=== PATIENT | male | born 1980 | race Hispanic/Latino ===

== ENCOUNTER 2018-02-01 09:56 | Emergency (ER) | payer SELFPAY ==
[2018-02-01] MEDS ORDERED: HYDROCODONE/APAP 10/325 TAB ONE (10:51)
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
--- NOTE | 2018-02-01 12:42 | RAD REPORT ---
EXAM DESCRIPTION: RAD - Clavicle Right - 02/01/2018 11:18 am CLINICAL HISTORY: Right shoulder pain injury FINDINGS: No fracture or dislocation is seen.
[2018-02-01] MEDS ORDERED: MORPHINE 4 MG/ML SYR ONE (12:53)
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
[2018-02-01 13:26] VITALS: BP 130/88; TEMP 98; O2SAT 95
--- NOTE | 2018-02-01 13:28 | RAD REPORT ---
EXAM DESCRIPTION: RAD - Hand Left 3 View - 02/01/2018 1:10 pm CLINICAL HISTORY: PAIN COMPARISON: Hand Left 3 View dated 02/09/2016; Hand Left 3 View dated 08/03/2015 FINDINGS: Deformity of fifth metacarpal with seen compatible with old trauma. Soft tissue swelling i s noted along the ulnar aspect of the hand. No acute fracture or dislocation seen.
== END 2018-02-01 13:22 | disposition home or self-care (01) ==
LOC: ER 09:56
PROC: 0JQ00ZZ Repair Scalp Subcutaneous Tissue and Fascia, Open Approach (ICD-10-PCS; principal; 2018-02-01)
DX: S02.2XXA Fracture of nasal bones, initial encounter for closed fracture (principal); S01.01XA Laceration without foreign body of scalp, initial encounter; S60.222A Contusion of left hand, initial encounter; Y04.2XXA Assault by strike against or bumped into by another person, initial encounter; Y93.9 Activity, unspecified; Y92.9 Unspecified place or not applicable; Z88.5 Allergy status to narcotic agent; Z88.6 Allergy status to analgesic agent
CPT/HCPCS: 70450; 70486; 72125; 76377

== ENCOUNTER 2018-03-13 09:46 | Emergency (ER) | payer SELFPAY ==
[2011-11-15 12:07] VITALS: BP 146/86
[2018-03-13] MEDS ORDERED: HYDROCODONE/APAP 5/325 MG TAB ONE (10:54)
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
--- NOTE | 2018-03-13 12:35 | ER ---
Nurse's Notes [facility] Name: Ameya Muniz Age: 37 yrs Sex: Male : 1980 Arrival Date: 03/13/2018 Time: 09:50 Bed 9 Private MD: None, None Diagnosis: Contusion of lower back and pelvis Presentation: 03/13 09:57 Presenting complaint: Patient states: lower back pain, was putting [place] lights up iw on Sat night, ladder slid out from under him, fell to right side, approx 10 feet, this morning pain has increased. Care prior to arrival: None. Mechanism of Injury: Fall from ladder. Trauma event details: Injury occurred in the [facility]. 09:57 Acuity: AVIVA 3 iw 09:57 Method Of Arrival: Ambulatory iw 10:00 Transition of care: patient was not received from another setting of care. Onset of iw symptoms was March 11, 2018. Risk Assessment: Do you want to hurt yourself or someone else? Patient reports no desire to harm self or others. Initial Sepsis Screen: Does the patient meet any 2 criteria? No. Patient's initial sepsis screen is negative. Does the patient have a suspected source of infection? No. Patient's initial sepsis screen is negative. Historical: - Allergies: 09:59 Naproxen; iw 09:59 tramadol; iw - Home Meds: 09:59 None [Active]; iw - PMHx: 09:59 back problems; iw - PSHx: 09:59 None; iw - Immunization history: Last tetanus immunization:. - Social history:: The patient lives at home, Smoking status: unknown. - Ebola Screening: : Patient negative for fever greater than or equal to 101.5 degrees Fahrenheit, and additional compatible Ebola Virus Disease symptoms Patient denies exposure to infectious person Patient denies travel to an Ebola-affected area in the 21 days before illness onset No symptoms or risks identified at this time. Screenin:00 Abuse screen: Denies threats or abuse. Denies injuries from another. Tuberculosis iw screening: No symptoms or risk factors identified. 11:00 Nutritional screening: No deficits noted. Fall Risk Fall in past 12 months (25 points). iw Primary Survey: 09:59 A: Airway: patent. Breathing/Chest: Respiratory pattern: regular. Circulation: Heart iw tones present. Skin color: pink. Disability Alert. Assessment: 10:58 General: Appears in no apparent distress. Behavior is calm, cooperative. General: iw Behavior is cooperative, anxious. Pain: Complains of pain in lumbar area. Neuro: Level of Consciousness is awake, alert, obeys commands, Oriented to person, place, time. 12:26 Reassessment: pt states "i just wanna get out of here and get in my own bed, can you iw tell him to give me my paper work" Dr. Louie notified. 12:37 Reassessment: pt advised that Dr. Louie is working on paper work, pt states "I'm just iw gonna go home, y'all can't do anything for me" pt does not want to stay for paper work. Vital Signs: 09:59 BP 137 / 88; Pulse 83; Resp 16; Pulse Ox 99% on R/A; Weight 86.18 kg; Height 5 ft. 11 iw in. (180.34 cm); Pain 9/10; 09:59 Body Mass Index 26.50 (86.18 kg, 180.34 cm) iw Mccamey Coma Score: 09:59 Eye Response: spontaneous(4). Verbal Response: oriented(5). Motor Response: obeys iw commands(6). Total: 15. Trauma Score (Adult): 09:59 Eye Response: spontaneous(1); Verbal Response: oriented(1); Motor Response: obeys iw commands(2); Systolic BP: > 89 mm Hg(4); Respiratory Rate: 10 to 29 per min(4); Mccamey Score: 15; Trauma Score: 12 ED Course: 09:50 Patient arrived in ED. dl4 09:51 None, None is Private Physician. dl4 09:58 Triage completed. iw 10:00 Arm band placed on. iw 10:00 Patient maintains SpO2 saturation greater than 95% on room air. iw 10:09 Abril Clement, RN is Primary Nurse. iw 10:22 Milind Louie MD is Attending Physician. gs 10:42 CT completed. Patient tolerated procedure well. Patient moved to CT via wheelchair. jg6 Patient moved back from CT. 11:00 Patient has correct armband on for positive identification. iw 12:34 No provider procedures requiring assistance completed. Patient did not have IV access iw during this emergency room visit. Administered Medications: 10:58 Drug: [place] 5 mg-325 mg 1 tabs Route: PO; iw Outcome: 12:34 Discharge ordered by MD. soto 12:34 Discharged to home iw 12:34 Condition: good 12:34 Instructed on pt refused to wait for discharge paperwork 12:35 Patient left the ED. iw Signatures: Abril Clement RN RN iw Milind Louie MD MD gs Garcia, Jessica j6 Chuy Romero dl4
--- NOTE | 2018-03-13 12:35 | EDPHYS ---
Physician Documentation [facility] Name: Ameya Muniz Age: 37 yrs Sex: Male : 1980 Arrival Date: 03/13/2018 Time: 09:50 Bed 9 Private MD: None, None ED Physician Milind Louie HPI: 03/13 11:26 This 37 yrs old Male presents to ER via Ambulatory with complaints of Fall gs Injury, Back Pain. 11:26 Details of fall: The patient fell from a height, from a ladder, but was slowed somewhat gs by hitting ladder rungs. Onset: The symptoms/episode began/occurred 2 day(s) ago. Associated injuries: The patient sustained injury to the low back, contusion, pain with movement, tenderness. Severity of symptoms: At their worst the symptoms were moderate, in the emergency department the symptoms are unchanged. The patient has not experienced similar symptoms in the past. The patient has not recently seen a physician. Historical: - Allergies: 09:59 Naproxen; iw 09:59 tramadol; iw - Home Meds: :59 None [Active]; iw - PMHx: 09:59 back problems; iw - PSHx: 09:59 None; iw - Immunization history: Last tetanus immunization:. - Social history:: The patient lives at home, Smoking status: unknown. - Ebola Screening: : Patient negative for fever greater than or equal to 101.5 degrees Fahrenheit, and additional compatible Ebola Virus Disease symptoms Patient denies exposure to infectious person Patient denies travel to an Ebola-affected area in the 21 days before illness onset No symptoms or risks identified at this time. ROS: 11:26 All other systems are negative. gs Exam: 11:26 Head/Face: Normocephalic, atraumatic. Eyes: Pupils equal round and reactive to light, gs extra-ocular motions intact. Lids and lashes normal. Conjunctiva and sclera are non-icteric and not injected. Cornea within normal limits. Periorbital areas with no swelling, redness, or edema. ENT: Nares patent. No nasal discharge, no septal abnormalities noted. Tympanic membranes are normal and external auditory canals are clear. Oropharynx with no redness, swelling, or masses, exudates, or evidence of obstruction, uvula midline. Mucous membranes moist. Neck: Trachea midline, no thyromegaly or masses palpated, and no cervical lymphadenopathy. Supple, full range of motion without nuchal rigidity, or vertebral point tenderness. No Meningismus. Chest/axilla: Normal chest wall appearance and motion. Nontender with no deformity. No lesions are appreciated. Cardiovascular: Regular rate and rhythm with a normal S1 and S2. No gallops, murmurs, or rubs. Normal PMI, no JVD. No pulse deficits. Respiratory: Lungs have equal breath sounds bilaterally, clear to auscultation and percussion. No rales, rhonchi or wheezes noted. No increased work of breathing, no retractions or nasal flaring. Abdomen/GI: Soft, non-tender, with normal bowel sounds. No distension or tympany. No guarding or rebound. No evidence of tenderness throughout. Skin: Warm, dry with normal turgor. Normal color with no rashes, no lesions, and no evidence of cellulitis. Neuro: Awake and alert, GCS 15, oriented to person, place, time, and situation. Cranial nerves II-XII grossly intact. Motor strength 5/5 in all extremities. Sensory grossly intact. Cerebellar exam normal. Normal gait. 11:26 Constitutional: The patient appears alert, awake. 11:26 Back: pain, that is moderate, of the right low back. 11:26 Musculoskeletal/extremity: Extremities: noted in the right hip: ecchymosis, tenderness, There is no evidence of deformity, ROM: no acute changes, Circulation is intact in all extremities. Sensation intact. Vital Signs: 09:59 BP 137 / 88; Pulse 83; Resp 16; Pulse Ox 99% on R/A; Weight 86.18 kg; Height 5 ft. 11 iw in. (180.34 cm); Pain 9/10; 09:59 Body Mass Index 26.50 (86.18 kg, 180.34 cm) iw Merced Coma Score: 09:59 Eye Response: spontaneous(4). Verbal Response: oriented(5). Motor Response: obeys iw commands(6). Total: 15. Trauma Score (Adult): 09:59 Eye Response: spontaneous(1); Verbal Response: oriented(1); Motor Response: obeys iw commands(2); Systolic BP: > 89 mm Hg(4); Respiratory Rate: 10 to 29 per min(4); Madina Score: 15; Trauma Score: 12 MDM: 10:34 Patient medically screened. 11:26 Differential diagnosis: contusion, fracture, sprain. Data reviewed: vital signs, nurses notes. Response to treatment: the patient's symptoms have mildly improved after treatment, and as a result, I will discharge patient. 12:33 Counseling: I had a detailed discussion with the patient and/or guardian regarding: the gs historical points, exam findings, and any diagnostic results supporting the discharge/admit diagnosis, radiology results, the need for outpatient follow up. 03/13 10:35 Order name: CT Stone Protocol 03/13 11:00 Order name: CT; Complete Time: 12:33 EDMS Administered Medications: 10:58 Drug: Nathalie 5 mg-325 mg 1 tabs Route: PO; iw Disposition: 03/13/18 12:34 Discharged to Home. Impression: Contusion of lower back and pelvis. - Condition is Stable. - Discharge Instructions: Contusion. - Prescriptions for Tylenol- Codeine #4 300-60 mg Oral Tablet - take 1 tablet by ORAL route every 6 hours As needed; 10 tablet. - Medication Reconciliation Form, Thank You Letter, Antibiotic Education, Prescription Opioid Use form. - Follow up: Private Physician; When: 2 - 3 days; Reason: Re-evaluation by your physician. Signatures: Dispatcher [employer] EDAbril Ruiz RN RN Milind Louie MD MD Corrections: (The following items were deleted from the chart) 12:35 12:34 03/13/2018 12:34 Discharged to Home. Impression: Contusion of lower back and iw pelvis. Condition is Stable. Forms are Medication Reconciliation Form, Thank You Letter, Antibiotic Education, Prescription Opioid Use. Follow up: Private Physician; When: 2 - 3 days; Reason: Re-evaluation by your physician.
== END 2018-03-13 12:35 | disposition home or self-care (01) ==
LOC: ER 09:46
DX: S30.0XXA Contusion of lower back and pelvis, initial encounter (principal); W11.XXXA Fall on and from ladder, initial encounter; Y93.9 Activity, unspecified; Y92.9 Unspecified place or not applicable
CPT/HCPCS: 74176; 76377; 99284

== ENCOUNTER 2018-05-18 08:29 | Emergency (ER) | payer SELFPAY ==
[2018-05-18 09:17] LABS: Urine Blood NEGATIVE (NEG); Urine Glucose NEGATIVE (NEG); Urine Protein NEGATIVE (NEG); Urine Specific Gravity 1.005 (1.005-1.030)
[2018-05-18 09:37] LABS: Urine Bacteria NONE SEEN /HPF (NONE SEEN); Urine Culture Reflex Order NOT NEEDED; Urine RBC NONE SEEN /HPF (NONE SEEN)
--- NOTE | 2018-05-18 09:58 | ER ---
Nurse's Notes [facility] Name: Ameya Muniz Age: 37 yrs Sex: Male : 1980 Arrival Date: 05/18/2018 Time: 08:33 Bed 18 Private MD: None, None Diagnosis: Presentation: 05/18 08:47 Presenting complaint: Patient states: mid back pain radiating to right groin, painful iw urination X 3 days. Transition of care: patient was not received from another setting of care. Onset of symptoms was May 15, 2018. Risk Assessment: Do you want to hurt yourself or someone else?. Initial Sepsis Screen: Does the patient meet any 2 criteria? HR > 90 bpm. Does the patient have a suspected source of infection? No. Patient's initial sepsis screen is negative. Care prior to arrival: None. 08:47 Method Of Arrival: Ambulatory iw 08:47 Acuity: AVIVA 3 iw Historical: - Allergies: 08:50 Naproxen; iw 08:50 tramadol; iw - Home Meds: 08:50 None [Active]; iw - PMHx: 08:50 back problems; iw - PSHx: 08:50 None; iw - Immunization history:: Adult Immunizations not up to date. - Social history:: Smoking status: Patient uses tobacco products, smokes one-half pack cigarettes per day. - Ebola Screening: : Patient negative for fever greater than or equal to 101.5 degrees Fahrenheit, and additional compatible Ebola Virus Disease symptoms Patient denies exposure to infectious person Patient denies travel to an Ebola-affected area in the 21 days before illness onset No symptoms or risks identified at this time. Screenin:50 Abuse screen: Denies threats or abuse. Denies injuries from another. Nutritional bp screening: No deficits noted. Tuberculosis screening: No symptoms or risk factors identified. Fall Risk None identified. Assessment: 08:50 General: Appears in no apparent distress. comfortable, Behavior is cooperative, bp appropriate for age, anxious. Pain: Complains of pain in groin. Neuro: Level of Consciousness is awake, alert, obeys commands, Oriented to person, place, time, situation, Appropriate for age. Cardiovascular: No deficits noted. Respiratory: Airway is patent Respiratory effort is even, unlabored, Respiratory pattern is regular, symmetrical. GI: No signs and/or symptoms were reported involving the gastrointestinal system. : Reports burning with urination. EENT: No deficits noted. Derm: No deficits noted. Musculoskeletal: Circulation, motion, and sensation intact. Range of motion: intact in all extremities. 09:45 Reassessment: PT ELOPED FROM ROOM WITHOUT SIGNING AMA. NO S/S ACUTE DISTRESS SEEN PRIOR bp TO ELOPEMENT. Vital Signs: 08:49 BP 142 / 100; Pulse 109; Resp 16 S; Temp 98.2(TE); Pulse Ox 100% on R/A; Weight 90.72 iw kg; Height 5 ft. 11 in. (180.34 cm); Pain 8/10; 08:49 Body Mass Index 27.89 (90.72 kg, 180.34 cm) iw ED Course: 08:33 Patient arrived in ED. mr 08:33 None, None is Private Physician. mr 08:43 Dinh Pacheco, RN is Primary Nurse. bp 08:44 Hammad Lats PA is PHCP. cp 08:44 John Walker MD is Attending Physician. cp 08:48 Triage completed. iw 08:49 Arm band placed on. iw 08:50 Patient has correct armband on for positive identification. Bed in low position. Call bp light in reach. Side rails up X2. 09:47 No provider procedures requiring assistance completed. Patient did not have IV access bp during this emergency room visit. 18:57 Primary Nurse role handed off by Dinh Pacheco, HAO cp 18:58 Abril Clement, RN is Primary Nurse. iw Administered Medications: No medications were administered Outcome: 09:48 Eloped from patient exam room, before seeing physician Time discovered patient gone: bp May 18, 2018 at 09:30 09:48 Condition: stable 09:57 Patient left the ED. bp 18:58 Patient left the ED. iw Signatures: Kasey Carrillo mr Abril Clement, RN RN iw Hammad Last PA PA cp Dinh Pacheco, RN RN bp
[2018-05-18 10:02] LABS: Barbiturates NEGATIVE (NEGATIVE); Benzodiazepines NEGATIVE (NEGATIVE); Cocaine NEGATIVE (NEGATIVE); METHAMPHETAM POSITIVE (NEGATIVE); Methadone NEGATIVE (NEGATIVE); Opiates NEGATIVE (NEGATIVE); Phencyclidine NEGATIVE (NEGATIVE); THC Cannibis NEGATIVE (NEGATIVE)
[2018-05-18 10:03] VITALS: BP 142/100; TEMP 98.2; O2SAT 100
--- NOTE | 2018-05-18 18:59 | EDPHYS ---
Physician Documentation [facility] Name: Ameya Muniz Age: 37 yrs Sex: Male : 1980 Arrival Date: 05/18/2018 Time: 08:33 Bed 18 Private MD: None, None ED Physician John Walker HPI: 05/18 09:15 This 37 yrs old Male presents to ER via Ambulatory with complaints of Urinary cp Problem. 09:15 The patient presents with scrotal pain, of the right side, urinary symptoms, dysuria, cp bilateral groin pain. Onset: The symptoms/episode began/occurred 3 day(s) ago. Associated signs and symptoms: Pertinent positives: abdominal pain, Pertinent negatives: constipation, diarrhea, fever, hematuria, vomiting. Severity of symptoms: in the emergency department the symptoms are unchanged, despite home interventions. Historical: - Allergies: 08:50 Naproxen; iw 08:50 tramadol; iw - Home Meds: 08:50 None [Active]; iw - PMHx: 08:50 back problems; iw - PSHx: 08:50 None; iw - Immunization history:: Adult Immunizations not up to date. - Social history:: Smoking status: Patient uses tobacco products, smokes one-half pack cigarettes per day. - Ebola Screening: : Patient negative for fever greater than or equal to 101.5 degrees Fahrenheit, and additional compatible Ebola Virus Disease symptoms Patient denies exposure to infectious person Patient denies travel to an Ebola-affected area in the 21 days before illness onset No symptoms or risks identified at this time. ROS: 09:20 Constitutional: Negative for body aches, chills, fever, poor PO intake. cp 09:20 Eyes: Negative for injury, pain, redness, and discharge. cp 09:20 ENT: Negative for drainage from ear(s), ear pain, sore throat, difficulty swallowing, difficulty handling secretions. 09:20 Cardiovascular: Negative for chest pain, edema, palpitations. 09:20 Respiratory: Negative for cough, shortness of breath, wheezing. 09:20 Abdomen/GI: Positive for abdominal pain, of the right lower quadrant and left lower quadrant and pelvis and groin, Negative for vomiting, diarrhea, constipation, black/tarry stool, rectal pain, rectal bleeding. 09:20 Back: Positive for radiated pain, of the low back area. 09:20 : Positive for burning with urination, testicular pain Negative for penile discharge, penile pain. 09:20 Skin: Negative for cellulitis, rash. 09:20 Neuro: Negative for altered mental status, headache, weakness. 09:20 All other systems are negative. Exam: 09:25 Constitutional: The patient appears in no acute distress, alert, awake, non-toxic, well cp developed, well nourished. 09:25 Head/Face: Normocephalic, atraumatic. cp 09:25 Eyes: Periorbital structures: appear normal. 09:25 ENT: External ear(s): are unremarkable, Nose: is normal, Mouth: Lips: moist, Oral mucosa: pink and intact, moist, Posterior pharynx: Airway: no evidence of obstruction, patent. 09:25 Chest/axilla: Inspection: normal, Palpation: is normal, no crepitus, no tenderness. 09:25 Cardiovascular: Rate: tachycardic, Rhythm: regular, Edema: is not appreciated. 09:25 Respiratory: the patient does not display signs of respiratory distress, Respirations: normal, no use of accessory muscles, no retractions, no splinting, no tachypnea, labored breathing, is not present, Breath sounds: are clear throughout, no decreased breath sounds, no stridor, no wheezing. 09:25 Abdomen/GI: Inspection: abdomen appears normal, Bowel sounds: active, all quadrants, Palpation: soft, in all quadrants, mild abdominal tenderness, in the right lower quadrant and left lower quadrant, rebound tenderness, is not appreciated, involuntary guarding, is not appreciated. 09:25 Back: pain, that is mild, of the low back area, ROM is normal. Vital Signs: 08:49 BP 142 / 100; Pulse 109; Resp 16 S; Temp 98.2(TE); Pulse Ox 100% on R/A; Weight 90.72 iw kg; Height 5 ft. 11 in. (180.34 cm); Pain 8/10; 08:49 Body Mass Index 27.89 (90.72 kg, 180.34 cm) iw MDM: 08:44 Patient medically screened. cp 05/18 08:49 Order name: Urine Microscopic Only bp 05/18 08:49 Order name: Urine Drug Screen bp 05/18 08:49 Order name: Urine Dipstick-Ancillary (obtain specimen); Complete Time: 09:08 bp 05/18 09:12 Order name: Urine Dipstick--Ancillary (enter results) eb Administered Medications: No medications were administered Disposition: 10:30 Chart complete. cp 05/19 12:56 Co-signature as Attending Physician, John Walker MD I agree with the assessment and wa plan of care. Disposition: 05/18/18 09:57 Patient left the facility after being seen by provider. - Patient left due to other. Signatures: Dispatcher [employer] EDAbril Ruiz RN RN iw Hammad Last PA PA cp John Walker MD MD wa Peltier, Brian RN RN bp Corrections: (The following items were deleted from the chart) 05/18 18:58 09:57 05/18/2018 09:57 Patient left the facility before being seen by provider. Reason iw stated they are leaving due to other. bp 18:58 18:58 05/18/2018 09:57 Patient left the facility after being seen by provider. Reason cp stated they are leaving due to other. iw 18:58 18:58 05/18/2018 09:57 Patient left the facility after being seen by provider. Reason iw stated they are leaving due to other. cp 05/19 17:15 05/18 09:00 Chart complete. cp cp
== END 2018-05-18 18:58 | disposition left against medical advice (07) ==
LOC: ER 08:29
DX: R30.0 Dysuria (principal); M54.5 Low back pain; F17.210 Nicotine dependence, cigarettes, uncomplicated; Z88.5 Allergy status to narcotic agent; Z88.6 Allergy status to analgesic agent
CPT/HCPCS: 80307; 81003; 81015; 99281

== ENCOUNTER 2018-12-28 02:41 | Emergency (ER) | payer BC, SELFPAY ==
--- OUTSIDE RECORDS SUMMARY | 2018-12-28 02:43 | XMS REPORT ---
:1980 [facility] [address] [place] [address] Dr. Kirby [address] [place] [id number] Care Team Providers Name Role Phone Unavailable Unavailable Unavailable Problems This patient has no known problems. Allergies, Adverse Reactions, Alerts This patient has no known allergies or adverse reactions. Medications This patient has no known medications.
--- NOTE | 2018-12-28 03:09 | ER ---
Nurse's Notes [facility] Name: Ameya Muniz Age: 38 yrs Sex: Male : 1980 Arrival Date: 12/28/2018 Time: 02:44 Bed 19 [facility] MD: Diagnosis: Encounter for screening, unspecified Presentation: 12/28 02:51 Presenting complaint: Patient states: Reports lower back pain that radiates down his ea left leg, pt reports he hurt his back yesterday helping his mom. Transition of care: patient was not received from another setting of care. Onset of symptoms was December 28, 2018. Risk Assessment: Do you want to hurt yourself or someone else? Patient reports no desire to harm self or others. Initial Sepsis Screen: Does the patient meet any 2 criteria? No. Patient's initial sepsis screen is negative. Does the patient have a suspected source of infection? No. Patient's initial sepsis screen is negative. Care prior to arrival: 02:51 Method Of Arrival: Ambulatory ea 02:51 Acuity: AVIVA 3 ea Triage Assessment: 02:56 General: Appears in no apparent distress. Behavior is calm, cooperative, appropriate ea for age. Pain: Complains of pain in back and left leg. Neuro: Level of Consciousness is awake, alert, obeys commands, Oriented to person, place, time, situation. Cardiovascular: Patient's skin is warm and dry. Respiratory: Airway is patent Respiratory effort is even, unlabored, Respiratory pattern is regular, symmetrical. Derm: Skin is pink, warm \T\ dry. Musculoskeletal: Circulation, motion, and sensation intact. Historical: - Allergies: 02:56 Naproxen; ea 02:56 tramadol; ea - Home Meds: 02:56 None [Active]; ea - PMHx: 02:56 back problems; ea - PSHx: 02:56 None; ea - Immunization history:: Adult Immunizations up to date. - Social history:: Smoking status: Patient uses tobacco products, smokes one pack cigarettes per day. - Ebola Screening: : No symptoms or risks identified at this time. Screenin:52 Abuse screen: Denies threats or abuse. Nutritional screening: No deficits noted. ea Tuberculosis screening: No symptoms or risk factors identified. Fall Risk None identified. Vital Signs: 02:57 BP 150 / 103; Pulse 107; Resp 18; Temp 98.2; Pulse Ox 95% ; Weight 86.18 kg; Height 5 ea ft. 11 in. (180.34 cm); Pain 9/10; 02:57 Body Mass Index 26.50 (86.18 kg, 180.34 cm) ea ED Course: 02:44 Patient arrived in ED. ds1 02:52 Triage completed. ea 02:54 Milind Louie MD is Attending Physician. gs 02:58 Patient has correct armband on for positive identification. Bed in low position. Call ea light in reach. Side rails up X2. 02:58 Arm band placed on right wrist. Patient placed in an exam room, on a stretcher, on ea pulse oximetry. 03:09 No provider procedures requiring assistance completed. Patient did not have IV access ea during this emergency room visit. Administered Medications: No medications were administered Outcome: 03:08 Discharge ordered by . 03:08 Medical screen evaluation completed per provider. Patient declined treatment. ea 03:09 Patient left the ED. ea Signatures: Tomasa Loera ds1 Damaris Hickey, RN RN Milind Jackson MD MD
--- NOTE | 2018-12-28 03:09 | EDPHYS ---
Physician Documentation [facility] Name: Ameya Muniz Age: 38 yrs Sex: Male : 1980 Arrival Date: 12/28/2018 Time: 02:44 Bed 19 Private MD: ED Physician Milind Louie HPI: 12/28 03:06 This 38 yrs old Male presents to ER via Ambulatory with complaints of Back gs Pain. 03:06 The patient presents with pain that is acute, that is chronic. The symptoms are located gs in the low back. Onset: The symptoms/episode began/occurred yesterday. Associated signs and symptoms: Pertinent negatives: incontinence, numbness, urinary retention. The problem was sustained when bending over, when lifting. Modifying factors: the patient symptoms are aggravated by bending. Severity of symptoms: At their worst the symptoms were moderate, in the emergency department the symptoms are unchanged. The patient has experienced similar episodes in the past, chronically. Historical: - Allergies: 02:56 Naproxen; ea 02:56 tramadol; ea - Home Meds: 02:56 None [Active]; ea - PMHx: 02:56 back problems; ea - PSHx: 02:56 None; ea - Immunization history:: Adult Immunizations up to date. - Social history:: Smoking status: Patient uses tobacco products, smokes one pack cigarettes per day. - Ebola Screening: : No symptoms or risks identified at this time. ROS: 03:06 All other systems are negative. gs Exam: 03:06 Head/Face: Normocephalic, atraumatic. Eyes: Pupils equal round and reactive to light, gs extra-ocular motions intact. Lids and lashes normal. Conjunctiva and sclera are non-icteric and not injected. Cornea within normal limits. Periorbital areas with no swelling, redness, or edema. ENT: Nares patent. No nasal discharge, no septal abnormalities noted. Tympanic membranes are normal and external auditory canals are clear. Oropharynx with no redness, swelling, or masses, exudates, or evidence of obstruction, uvula midline. Mucous membranes moist. Neck: Trachea midline, no thyromegaly or masses palpated, and no cervical lymphadenopathy. Supple, full range of motion without nuchal rigidity, or vertebral point tenderness. No Meningismus. Chest/axilla: Normal chest wall appearance and motion. Nontender with no deformity. No lesions are appreciated. Cardiovascular: Regular rate and rhythm with a normal S1 and S2. No gallops, murmurs, or rubs. Normal PMI, no JVD. No pulse deficits. Respiratory: Lungs have equal breath sounds bilaterally, clear to auscultation and percussion. No rales, rhonchi or wheezes noted. No increased work of breathing, no retractions or nasal flaring. Abdomen/GI: Soft, non-tender, with normal bowel sounds. No distension or tympany. No guarding or rebound. No evidence of tenderness throughout. Back: No spinal tenderness. No costovertebral tenderness. Full range of motion. Skin: Warm, dry with normal turgor. Normal color with no rashes, no lesions, and no evidence of cellulitis. MS/ Extremity: Pulses equal, no cyanosis. Neurovascular intact. Full, normal range of motion. Neuro: Awake and alert, GCS 15, oriented to person, place, time, and situation. Cranial nerves II-XII grossly intact. Motor strength 5/5 in all extremities. Sensory grossly intact. Cerebellar exam normal. Normal gait. 03:06 Constitutional: The patient appears alert, awake. Vital Signs: 02:57 BP 150 / 103; Pulse 107; Resp 18; Temp 98.2; Pulse Ox 95% ; Weight 86.18 kg; Height 5 ea ft. 11 in. (180.34 cm); Pain 9/10; 02:57 Body Mass Index 26.50 (86.18 kg, 180.34 cm) ea MDM: 03:05 Patient medically screened. 03:06 Differential diagnosis: Joint Injury Ligament Injury ruptured disc, sprain. Data gs reviewed: vital signs, nurses notes. Counseling: I had a detailed discussion with the patient and/or guardian regarding: the historical points, exam findings, and any diagnostic results supporting the discharge/admit diagnosis, the need for outpatient follow up. Response to treatment: There is no appreciated change of the patient's symptoms at this time, and as a result, I will discharge patient. Administered Medications: No medications were administered Disposition: 12/28/18 03:08 Discharged to Home. Impression: Encounter for screening, unspecified. - Condition is Stable. - Medication Reconciliation Form, Thank You Letter, Antibiotic Education, Prescription Opioid Use form. - Follow up: Private Physician; When: 2 - 3 days; Reason: Re-evaluation by your physician. Signatures: Damaris Hickey RN RN ea Starr, Gregory, MD MD gs Corrections: (The following items were deleted from the chart) 03:09 03:08 12/28/2018 03:08 Discharged to Home. Impression: Encounter for screening, ea unspecified. Condition is Stable. Forms are Medication Reconciliation Form, Thank You Letter, Antibiotic Education, Prescription Opioid Use. Follow up: Private Physician; When: 2 - 3 days; Reason: Re-evaluation by your physician. gs
[2018-12-28 06:28] VITALS: BP 150/103; TEMP 98.2; O2SAT 95
== END 2018-12-28 03:09 | disposition home or self-care (01) ==
LOC: ER 02:41
DX: M54.5 Low back pain (principal); F17.210 Nicotine dependence, cigarettes, uncomplicated; Z13.9 Encounter for screening, unspecified
CPT/HCPCS: 99282

== ENCOUNTER 2022-02-04 10:16 | Emergency (ER) | payer SELFPAY ==
--- OUTSIDE RECORDS SUMMARY | 2022-02-04 10:21 | XMS REPORT | Continuity of Care Document ---
:1980 Author Organization [facility] t Address [address] [place] [address] [address] [place] [address] Care Team Providers Name Role Phone Sushma Tovar Primary Care Physician [phone] Problems This patient has no known problems. Allergies, Adverse Reactions, Alerts This patient has no known allergies or adverse reactions. Medications Ordered Filled Start Stop Current Ordering Indication Dosage Frequency Signature Comments Components Source Medication Medication Date Date Medication? Clinician (SIG) Name Name Dose 2021- No Unknown 725 00:00: 00 TAKE 1 2021-0 No CAPSULE AT 7-25 BEDTIME. 00:00: 00 TAKE 1 2021-0 No 200 TABLET 7-25 TWICE 00:00: DAILY. 00 Dose 2021-0 No Unknown 7-25 00:00: 00 TAKE 1 2021-0 No CAPSULE AT 7-25 BEDTIME. 00:00: 00 TAKE 1 2021-0 No 100 CAPSULE AT 7-25 NIGHT FOR 3 00:00: DAYS 00 FOLLOWED BY 2 CAPSULES FOR 3 DAYS , THEN 300 MG AT NIGHT X 30 DAYS Dose 2021-0 No Unknown 7-25 00:00: 00 TAKE 1 2021-0 No CAPSULE AT 7-25 BEDTIME. 00:00: 00 Vital Signs Vital Name Observation Time Observation Value Comments Source BP Systolic 2022-01-04 13:23:00 112 mm[Hg] BP Diastolic 2022-01-04 13:23:00 73 mm[Hg] Weight Measured 2022-01-04 13:23:00 203.20 pounds Height Measured 2022-01-04 13:23:00 71.00 inches Body Temperature 2022-01-04 13:23:00 98.20 degrees Heart Rate 2022-01-04 13:23:00 73.00 /min Respiratory Rate 2022-01-04 13:23:00 18.00 /min BP Systolic 2021-12-18 13:27:00 135 mm[Hg] BP Diastolic 2021-12-18 13:27:00 80 mm[Hg] Weight Measured 2021-12-18 13:27:00 199.00 pounds Height Measured 2021-12-18 13:27:00 71.00 inches Body Temperature 2021-12-18 13:27:00 98.20 degrees Heart Rate 2021-12-18 13:27:00 79.00 /min Respiratory Rate 2021-12-18 13:27:00 18.00 /min Heart Rate 2021-11-02 08:21:00 75.00 /min Respiratory Rate 2021-11-02 08:21:00 18.00 /min BP Systolic 2021-11-02 08:21:00 138 mm[Hg] BP Diastolic 2021-11-02 08:21:00 78 mm[Hg] Weight Measured 2021-11-02 08:21:00 198.00 pounds Height Measured 2021-11-02 08:21:00 71.00 inches Body Temperature 2021-11-02 08:21:00 98.20 degrees Procedures This patient has no known procedures. Plan of Care Planned Activity Planned Date Details Comments Source Goal Plan of Care Note [code = 96550-0] Goal Plan of Care Note [code = 34511-2] Goal Plan of Care Note [code = 74054-7] Goal Plan of Care Note [code = 54800-8] Goal Plan of Care Note [code = 31586-5] Goal Plan of Care Note [code = 21692-4] Goal Plan of Care Note [code = 96525-6] Goal Plan of Care Note [code = 71545-2] Goal Plan of Care Note [code = 37314-1] Goal Plan of Care Note [code = 26271-9] Goal Plan of Care Note [code = 35312-4] Goal Plan of Care Note [code = 05801-3] Goal Plan of Care Note [code = 50364-1] Goal Plan of Care Note [code = 63283-0] Goal Plan of Care Note [code = 01773-1] Goal Plan of Care Note [code = 35084-9] Goal Plan of Care Note [code = 29945-3] Goal Plan of Care Note [code = 43210-2] Goal Plan of Care Note [code = 06240-7] Goal Plan of Care Note [code = 04506-2] Goal Plan of Care Note [code = 62821-4] Goal Plan of Care Note [code = 57352-8] Goal Plan of Care Note [code = 83719-9] Goal Plan of Care Note [code = 90100-3] Goal Plan of Care Note [code = 36118-3] Goal Plan of Care Note [code = 34620-0] Goal Plan of Care Note [code = 67767-3] Goal Plan of Care Note [code = 44723-4] Encounters Start End Encounter Admission Attending Care Care Encounter Source Date/Time Date/Time Type Type Clinicians Facility Department ID 2022-01-04 2022-01-04 Outpatient [id number] 00:00:00 00:00:00 Visit [id number] [id number] [id number] 2021-12-18 2021-12-18 Outpatient [id number] 00:00:00 00:00:00 Visit 3a08-541i [id number] -[id number] 2021-11-26 Outpatient [id number] 00:00:00 00:00:00 Visit 210c-42b0 [id number]-42b0-8 -839d-07f [id number]-[id number] 2021-11-02 2021-11-02 Outpatient [id number] 00:00:00 00:00:00 Visit [id number] [id number]-a -acd0-6ba [id number] Results This patient has no known results.
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
--- NOTE | 2022-02-04 12:34 | EDPHYS ---
Physician Documentation [facility] Name: Ameya Muniz Age: 41 yrs Sex: Male : 1980 Arrival Date: 02/04/2022 Time: 10:19 Bed 1 Private MD: ED Physician Hammad Ivey HPI: 02/04 12:33 This 41 yrs old Male presents to ER via Ambulatory with complaints of jmm Medication Refill. 12:33 The patient presents to the emergency department requesting refill(s) for: Neurontin. jmm The patient has experienced similar episodes in the past. Historical: - Allergies: 10:24 Naproxen; ph 10:24 tramadol; ph - PMHx: 10:24 back problems; ph - Immunization history:: Adult Immunizations unknown. - Social history:: Smoking status: Patient reports the use of cigarette tobacco products, denies chronic smoking, but will smoke occasionally. ROS: 12:33 Constitutional: Negative for fever, chills, and weight loss, Cardiovascular: Negative jmm for chest pain, palpitations, and edema, Respiratory: Negative for shortness of breath, cough, wheezing, and pleuritic chest pain. 12:33 MS/extremity: Positive for pain. 12:33 All other systems are negative. Exam: 12:33 Constitutional: This is a well developed, well nourished patient who is awake, alert, jmm and in no acute distress. Head/Face: atraumatic. Eyes: EOMI, no conjunctival erythema appreciated ENT: Moist Mucus Membranes Neck: Trachea midline, Supple Chest/axilla: Normal chest wall appearance and motion. Cardiovascular: Regular rate and rhythm. No edema appreciated Respiratory: Normal respirations, no respiratory distress appreciated Abdomen/GI: Non distended Back: Normal ROM Skin: General appearance color normal MS/ Extremity: Moves all extremities, no obvious deformities appreciated, no edema noted to the lower extremities Neuro: Awake and alert Psych: Behavior is normal, Mood is normal, Patient is cooperative and pleasant Vital Signs: 10:33 BP 148 / 89; Pulse 75; Resp 18; Temp 98.0; Pulse Ox 99% on R/A; Weight 90.72 kg; Height ph 5 ft. 10 in. (177.80 cm); 10:33 Body Mass Index 28.70 (90.72 kg, 177.80 cm) ph MDM: 10: Patient medically screened. [facility] 12:34 Data reviewed: vital signs, nurses notes. Counseling: I had a detailed discussion with [facility] the patient and/or guardian regarding: the historical points, exam findings, and any diagnostic results supporting the discharge/admit diagnosis, the need for outpatient follow up, to return to the emergency department if symptoms worsen or persist or if there are any questions or concerns that arise at home. Administered Medications: No medications were administered Disposition Summary: 02/04/22 12:34 Discharge Ordered Location: Home [facility] Condition: Stable [facility] Diagnosis - Person with feared health complaint in whom no diagnosis is made [facility] Followup: [facility] - With: Private Physician - When: 2 - 3 days - Reason: Recheck today's complaints, Continuance of care, Re-evaluation by your physician Discharge Instructions: - Discharge Summary Sheet [facility] Forms: - Medication Reconciliation Form [facility] - Thank You Letter [facility] - Antibiotic Education [facility] - Prescription Opioid Use [facility] Prescriptions: - gabapentin 300 mg Oral capsule - take 1 capsule by ORAL route 3 times per day As needed; 30 capsule; Refills: 0, [facility] Product Selection Permitted Signatures: Jose Randolph PA PA jmm Hall, Patricia, RN RN ph
[2022-02-04 12:54] VITALS: BP 148/89; TEMP 98; O2SAT 99
== END 2022-02-04 12:50 | disposition home or self-care (01) ==
LOC: ER 10:16
DX: Z71.1 Person with feared health complaint in whom no diagnosis is made (principal)
CPT/HCPCS: 99282

== ENCOUNTER 2022-06-15 11:26 | Emergency (ER) | payer OTHER ==
--- OUTSIDE RECORDS SUMMARY | 2022-06-15 11:30 | XMS REPORT | Continuity of Care Document ---
:1980 Author Organization [facility] t Address [address] [place] [address] [place] [id number] Care Team Providers Name Role Phone Sushma Tovar Primary Care Physician [phone] Problems This patient has no known problems. Allergies, Adverse Reactions, Alerts This patient has no known allergies or adverse reactions. Medications Ordered Filled Start Stop Current Ordering Indication Dosage Frequency Signature Comments Components Source Medication Medication Date Date Medication? Clinician (SIG) Name Name Dose 2021-0 No Unknown 725 00:00: 00 TAKE 1 [...] Goal Plan of Care Note [code = 20377-8] Goal Plan of Care Note [code = 40935-0] Goal Plan of Care Note [code = 67058-9] Goal Plan of Care Note [code = 98441-9] Goal Plan of Care Note [code = 65384-3] Goal Plan of Care Note [code = 19578-6] Goal Plan of Care Note [code = 97657-2] Goal Plan of Care Note [code = 81014-5] Goal Plan of Care Note [code = 90466-9] Goal Plan of Care Note [code = 30527-2] Goal Plan of Care Note [code = 50285-6] Goal Plan of Care Note [code = 72936-7] Goal Plan of Care Note [code = 79898-7] Goal Plan of Care Note [code = 97060-8] Goal Plan of Care Note [code = 11074-0] Goal Plan of Care Note [code = 12546-8] Goal Plan of Care Note [code = 91777-4] Goal Plan of Care Note [code = 00531-3] Goal Plan of Care Note [code = 87428-9] Goal Plan of Care Note [code = 88776-6] Goal Plan of Care Note [code = 83933-3] Goal Plan of Care Note [code = 97989-8] Goal Plan of Care Note [code = 50125-1] Goal Plan of Care Note [code = 33000-3] Goal Plan of Care Note [code = 86607-0] Goal Plan of Care Note [code = 97674-3] Goal Plan of Care Note [code = 98531-2] Goal Plan of Care Note [code = 53880-2] Encounters Start End Encounter Admission Attending Care Care Encounter Source Date/Time Date/Time Type Type Clinicians Facility Department ID 2022-02-15 2022-02-15 Outpatient [facility] SFA [id number] [place] 15:01:23 15:01:23 1107 F Jae 2022-01-04 2022-01-04 Outpatient [id number] 00:00:00 00:00:00 Visit [id number]-9395 [id number] -[id number] [id number] 2021-12-18 2021-12-18 Outpatient [id number] 00:00:00 00:00:00 Visit [id number] -[id number] [id number] 2021-11-26 Outpatient [id number] 00:00:00 00:00:00 Visit 210c-42b0 10c-42b0-8 -839d-07f [id number] 2021-11-02 2021-11-02 Outpatient [id number] 00:00:00 00:00:00 Visit 9kb6-6115 ab0-4723-a -acd0-6ba [id number] Results This patient has no known results.
[2022-06-15] MEDS ORDERED: ONDANSETRON 4 MG (ODT) TAB ONE (11:49)
[2022-06-15 13:52] VITALS: TEMP 97.8
[2022-06-15 13:53] VITALS: BP 142/69; O2SAT 99
--- NOTE | 2022-07-02 14:11 | EDPHYS ---
Physician Documentation [facility] Name: Ameya Muniz Age: 41 yrs Sex: Male : 1980 Arrival Date: 06/15/2022 Time: 11:30 Bed IW2 Private MD: ED Physician Thiago Berkowitz HPI: 06/15 12:03 This 41 yrs old Male presents to ER via Ambulatory with complaints of Fever, ms3 Vomiting. 12:03 41-year-old male with past medical history of back problems presents for vomiting that ms3 began yesterday after having a tooth extracted. Patient states he is currently on antibiotics for dental infection. Patient denies pain at this time. Patient denies alleviating or inciting factors. Patient states he feels dehydrated.. Historical: - Allergies: 11:42 Naproxen; ld1 11:42 tramadol; ld1 - PMHx: 11:42 back problems; ld1 - Immunization history:: Adult Immunizations up to date, Client reports receiving the 2nd dose of the Covid vaccine. - Social history:: Smoking status: Patient denies any tobacco usage or history of. Patient/guardian denies using alcohol. ROS: 12:03 Constitutional: Negative for fever, and chills. Neck: Negative for injury, pain, and ms3 swelling, Cardiovascular: Negative for chest pain, and palpitations. Respiratory: Negative for shortness of breath, cough, wheezing, and pleuritic chest pain. 12:03 Skin: Negative for injury, rash, and discoloration. 12:03 Abdomen/GI: Positive for vomiting. 12:03 All other systems are negative. Exam: 12:03 Constitutional: This is a well developed, well nourished patient who is awake, alert, ms3 and in no acute distress. Head/Face: Normocephalic, atraumatic. Neck: Trachea midline, no cervical lymphadenopathy. Supple, full range of motion without nuchal rigidity, or vertebral point tenderness. No Meningismus. Chest/axilla: Normal chest wall appearance and motion. Nontender with no deformity. Cardiovascular: Regular rate and rhythm with a normal S1 and S2. No gallops, murmurs, or rubs. Normal PMI, no JVD. No pulse deficits. Respiratory: Lungs have equal breath sounds bilaterally, clear to auscultation and percussion. No rales, rhonchi or wheezes noted. No increased work of breathing, no retractions or nasal flaring. Abdomen/GI: Soft, non-tender, with normal bowel sounds. No distension or tympany. No guarding or rebound. No evidence of tenderness throughout. Skin: Warm, dry with normal turgor. Normal color with no rashes, no lesions, and no evidence of cellulitis. MS/ Extremity: Pulses equal, no cyanosis. Neurovascular intact. Full, normal range of motion. Vital Signs: 11:40 BP 146 / 89; Pulse 81; Resp 18; Temp 97.8(TE); Pulse Ox 96% on R/A; Weight 90.72 kg; ld1 Height 5 ft. 11 in. ; Pain 8/10; 13:33 BP 142 / 69; Pulse 81; Resp 18; Pulse Ox 99% on R/A; ld1 11:40 Body Mass Index 27.89 (90.72 kg, 180.34 cm) ld1 11:40 Pain Scale: Adult ld1 MDM: 11:47 Patient medically screened. ms3 12:03 Differential diagnosis: adverse reaction vs vomiting vs dehydration. ms3 13:24 Data reviewed: vital signs, nurses notes, and as a result, I will discharge patient. I ms3 considered the following discharge prescriptions or medication management in the emergency department Medications were administered in the Emergency Department. See MAR. Test considered but Not performed: Labs: Patient tolerating po with benign abdominal exam.. CT: Patient tolerating po with benign abdominal exam.. Counseling: I had a detailed discussion with the patient and/or guardian regarding: the historical points, exam findings, and any diagnostic results supporting the discharge/admit diagnosis, the need for outpatient follow up. ED course: Discussed physical exam findings with patient. Patient to follow-up with Dr. Alaniz in 2 to 3 days. Patient understands and agrees with plan. All questions were answered. Return precautions discussed include worsening symptoms, or any other concerns. On reevaluation patient is tolerating p.o., abdomen benign, patient is alert and oriented x4, no apparent distress, nontoxic, ambulatory in the emergency department. 06/15 11:43 Order name: PO challenge; Complete Time: 13:02 ld1 Administered Medications: 11:46 Drug: Ondansetron PO 4 mg Route: PO; kr3 13:02 Follow up: Response: No adverse reaction ld1 Disposition Summary: 06/15/22 13:21 Discharge Ordered Location: Home ms3 Condition: Stable ms3 Diagnosis - Nausea with vomiting, unspecified ms3 Followup: ms3 - With: Dalton Alaniz DO - When: 2 - 3 days - Reason: Recheck today's complaints Discharge Instructions: - Discharge Summary Sheet ms3 - Nausea and Vomiting, Adult ms3 Forms: - Medication Reconciliation Form ms3 - Thank You Letter ms3 - Antibiotic Education ms3 - Prescription Opioid Use ms3 Prescriptions: - ondansetron 4 mg Oral Tablet,disintegrating - take 1 tablet by ORAL route every 8 hours; 15 tablet; Refills: 0, Product ms3 Selection Permitted Signatures: Thiago Berkowitz DO DO ms3 Alma Delia Paz, RN RN ld1 Namrata Glover RN RN kr3
--- NOTE | 2022-07-02 14:11 | ER ---
Nurse's Notes [facility] Name: Ameya Muniz Age: 41 yrs Sex: Male : 1980 Arrival Date: 06/15/2022 Time: 11:30 Bed IW2 Private MD: Diagnosis: Nausea with vomiting, unspecified Presentation: 06/15 11:40 Chief complaint: Patient states: Tooth pulled yesterday. [place] lower back pain - unable ld1 to keep fluids down. C/O [place] lower back pain. Coronavirus screen: At this time, the client does not indicate any symptoms associated with coronavirus-19. Ebola Screen: No symptoms or risks identified at this time. Initial Sepsis Screen: Does the patient meet any 2 criteria? No. Patient's initial sepsis screen is negative. Does the patient have a suspected source of infection? No. Patient's initial sepsis screen is negative. Risk Assessment: Do you want to hurt yourself or someone else? Patient reports no desire to harm self or others. Onset of symptoms was June 15, 2022 at 11:42. 11:40 Method Of Arrival: Ambulatory ld1 11:40 Acuity: AVIVA 3 ld1 Triage Assessment: 11:42 General: Appears in no apparent distress. comfortable, Behavior is calm, cooperative, ld1 appropriate for age. Pain: Complains of pain in low back area Pain does not radiate. Pain currently is 8 out of 10 on a pain scale. Quality of pain is described as throbbing. EENT: No signs and/or symptoms were reported regarding the EENT system. Neuro: Level of Consciousness is awake, alert, obeys commands, Oriented to person, place, time, situation. Cardiovascular: Capillary refill < 3 seconds Patient's skin is warm and dry. Respiratory: Airway is patent Respiratory effort is even, unlabored. GI: Abdomen is flat, non-distended, Reports intolerance of fluids, nausea, vomiting. : No signs and/or symptoms were reported regarding the genitourinary system. Derm: No signs and/or symptoms reported regarding the dermatologic system. Musculoskeletal: No signs and/or symptoms reported regarding the musculoskeletal system. Historical: - Allergies: 11:42 Naproxen; ld1 11:42 tramadol; ld1 - PMHx: 11:42 back problems; ld1 - Immunization history:: Adult Immunizations up to date, Client reports receiving the 2nd dose of the Covid vaccine. - Social history:: Smoking status: Patient denies any tobacco usage or history of. Patient/guardian denies using alcohol. Screenin:33 [facility] ED Fall Risk Assessment (Adult) History of falling in the last 3 months, ld1 including since admission No falls in past 3 months (0 pts). Abuse screen: Denies threats or abuse. Denies injuries from another. Nutritional screening: No deficits noted. Tuberculosis screening: No symptoms or risk factors identified. Assessment: 13:33 Reassessment: See triage assessment. ld1 Vital Signs: 11:40 BP 146 / 89; Pulse 81; Resp 18; Temp 97.8(TE); Pulse Ox 96% on R/A; Weight 90.72 kg; ld1 Height 5 ft. 11 in. ; Pain 8/10; 13:33 BP 142 / 69; Pulse 81; Resp 18; Pulse Ox 99% on R/A; ld1 11:40 Body Mass Index 27.89 (90.72 kg, 180.34 cm) ld1 11:40 Pain Scale: Adult ld1 ED Course: 11:30 Patient arrived in ED. mr 11:32 Thiago Berkowitz DO is Attending Physician. ms3 11:42 Triage completed. ld1 11:42 Arm band placed on right wrist. ld1 13:21 Dalton Alaniz DO is Referral Physician. ms3 13:33 Patient has correct armband on for positive identification. Placed in gown. Bed in low ld1 position. Call light in reach. Side rails up X2. Pulse ox on. NIBP on. Door closed. Noise minimized. Warm blanket given. 13:33 No provider procedures requiring assistance completed. Patient did not have IV access ld1 during this emergency room visit. Administered Medications: 11:46 Drug: Ondansetron PO 4 mg Route: PO; kr3 13:02 Follow up: Response: No adverse reaction ld1 Medication: 13:33 VIS not applicable for this client. ld1 Outcome: 13:21 Discharge ordered by . ms3 13:33 Discharged to home ambulatory. ld1 13:33 Condition: stable 13:33 Discharge instructions given to patient, Instructed on discharge instructions, follow up and referral plans. medication usage, Demonstrated understanding of instructions, follow-up care, medications, Prescriptions given X 1. 13:34 Patient left the ED. ld1 Signatures: Kasey Carrillo mr Thiago Berkowitz DO DO ms3 Alma Delia Paz RN RN ld1 Namrata Glover RN RN kr3
== END 2022-06-15 13:34 | disposition home or self-care (01) ==
LOC: ER 11:26
DX: R11.2 Nausea with vomiting, unspecified (principal); R50.9 Fever, unspecified; Z88.5 Allergy status to narcotic agent
CPT/HCPCS: 99283; Q0162

== ENCOUNTER → 2023-04-18 | Emergency (ER) | payer OTHER ==
--- OUTSIDE RECORDS SUMMARY | 2023-04-18 10:32 | XMS REPORT | Continuity of Care Document ---
Author Name Unknown Address [address] [facility] [address] th[address] Address [address] [facility] 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 ON STAND 9 [id number] 2022 00:00:00 Problems Condition Name Condition Details Condition Category Status Onset Date Resolution Date Last Treatment Date Treating Clinician Comments Source Well adult exam Well adult exam Disease Active 08-12 00:00: 00 Randee Quinnold - Externa l Elevated BP without diagnosis of hypertensi on Elevated BP without diagnosis of hypertensi on Disease Active 08-12 00:00: 00 Randee Seybold - Externa l Mild major depression Mild major depression Disease Active - 00:00: 00 Randee Seybold - Externa l Depression Depression Disease Active - 00:00: 00 Randee Seybold - Externa l Chronic back pain Chronic back pain Disease Active - 00:00: 00 Randee Seybold - Externa l Neuropathy Neuropathy Disease Active - 00:00: 00 Randee Seybold - Externa l Vitiligo Vitiligo Disease Active - 00:00: 00 Randee Seybold - Externa l Social History Social Habit Start Date Stop Date Quantity Comments Source Gender identity Cherry mac Villatoro - External Sexual orientation Amaris sands Shauna - External History of tobacco use Cigarette Smoker Randee martinez - External Alcohol intake 2022-08-12 00:00:00 2022-08-12 00:00:00 Lifetime non-drinker (finding) Randee Villatoro - External History of Social function 2022-07-13 00:00:00 2022-07-13 00:00:00 Randee Villatoro - External Education 2022-07-13 00:00:00 2022-07-13 00:00:00 16 Randee Villatoro - External Cigarettes smoked current (pack per day) - Reported 2022-07-13 00:00:00 2022-07-13 00:00:00 Randee Villatoro - External Cigarette pack-years 2022-07-13 00:00:00 2022-07-13 00:00:00 Randee Villatoro - External Tobacco use and exposure 2022-07-13 00:00:00 2022-07-13 00:00:00 Smokeless tobacco non-user Randee Villatoro - External Sex Assigned At 1980 00:00:00 1980 00:00:00 Randee Villatoro - External Smoking Status Start Date Stop Date Source Occasional tobacco smoker 2022-07-13 00:00:00 Randee Villatoro - External Medications Ordered Medication Name Filled Medication Name Start Date Stop Date Current Medication? Ordering Clinician Indication Dosage Frequency Signature (SIG) Comments Components Source Sertraline HCl 100 MG oral Tablet 08-12 00:00: 00 Yes [id number] 100mg Take 1 tablet (100 mg total) by mouth daily Randee Cardozo Externa l Gabapentin 600 MG oral Tablet 08-12 00:00: 00 Yes [id number] 600mg Take 1 tablet (600 mg total) by mouth 3 times daily Randee Villatoro - Externa l Gabapentin 600 MG oral Tablet 07-13 00:00: 00 Yes [id number] 600mg Take 1 tablet (600 mg total) by mouth 2 times daily Randee Cardozo Externa l Sertraline HCl 50 MG oral Tablet 07-13 00:00: 00 Yes [id number] 50mg Take 1 tablet (50 mg total) by mouth daily Randee malhotra Gabapentin 600 MG oral Tablet 4- 00:00: 00 08-12 00:00 :00 No [id number] 600mg Take 1 tablet (600 mg total) by mouth 2 times daily Randee malhotra Sertraline HCl 50 MG oral Tablet 4- 00:00: 08-12 00:00 :00 No [id number] 50mg Take 1 tablet (50 mg total) by mouth daily Randee malhotra Acetaminoph en-Codeine #3 300-30 MG oral Tablet 3-06 00:00: 00 07-13 00:00 :00 No 1{tbl} Take 1 tablet by mouth every 4 to 6 hours as needed for pain Randee malhotra Sertraline HCl 50 MG oral Tablet 3- 00:00: 00 07-13 00:00 :00 No TAKE 1 TABLET BY MOUTH 1 TIME EACH DAY. Randee malhotra Gabapentin 600 MG oral Tablet 1-31 00:00: 00 07-13 00:00 :00 No 600mg Take 600 mg by mouth daily Randee malhotra HYDROcodone -Acetaminop hen (NORCO) 5-325 MG oral Tablet 1-05 00:00: 00 07-13 00:00 :00 No 1{tbl} Q.25D Take 1 tablet by mouth every 6 hours as needed FOR PAIN Randee malhotra Dose Unknown 11-02 00:00: 00 No TAKE 1 CAPSULE AT BEDTIME. 11-02 00:00: 00 No TAKE 1 TABLET TWICE DAILY. 11-02 00:00: 00 No 200 Dose Unknown 11-02 00:00: 00 No TAKE 1 CAPSULE AT BEDTIME. 11-02 00:00: 00 No TAKE 1 CAPSULE AT NIGHT FOR 3 DAYS FOLLOWED BY 2 CAPSULES FOR 3 DAYS , THEN 300 MG AT NIGHT X 30 DAYS 11-02 00:00: 00 No 100 Dose Unknown 11-02 00:00: 00 No TAKE 1 CAPSULE AT BEDTIME. 11-02 00:00: 00 No Vital Signs Vital Name Observation Time Observation Value Comments S ource Systolic blood pressure 2022-08-12 13:17:00 130 mm[Hg] Randee Seybo ld - External Diastolic blood pressure 2022-08-12 13:17:00 85 mm[Hg] Randee Seybo ld - External Heart rate 2022-08-12 13:02:00 99 /min Kelse y Seybold - External Body temperature 2022-08-12 13:02:00 36.61 Shreya Randee Seybold - External Respiratory rate 2022-08-12 13:02:00 14 /min Randee Seybold - External Body height 2022-08-12 13:02:00 177.8 cm Cherry ey Seybold - External Body weight 2022-08-12 13:02:00 88.905 kg Cherry ey Seybold - External BMI 2022-08-12 13:02:00 28.12 kg/m2 Cherry ey Seybold - External Oxygen saturation in Arterial blood by Pulse oximetry 2022-08-12 13:02:00 98 /min Randee Seybo ld - External Systolic blood pressure 2022-07-13 14:49:00 168 mm[Hg] Randee Seybo ld - External Diastolic blood pressure 2022-07-13 14:49:00 84 mm[Hg] Randee Seybo ld - External Heart rate 2022-07-13 14:49:00 102 /min Kelse y Seybold - External Body temperature 2022-07-13 14:49:00 36.89 Shreya Randee Seybold - External Respiratory rate 2022-07-13 14:49:00 14 /min Randee Seybold - External Body height 2022-07-13 14:49:00 177.8 cm Cherry ey Seybold - External Body weight 2022-07-13 14:49:00 87.998 kg Cherry ey Seybold - External BMI 2022-07-13 14:49:00 27.84 kg/m2 Cherry ey Seybold - External Oxygen saturation in Arterial blood by Pulse oximetry 2022-07-13 14:49:00 98 /min Randee López ld - External BP Systolic 2022-01-04 13:23:00 112 mm[Hg] BP [...] inches Body Temperature 2021-11-02 08:21:00 98.20 degrees Plan of Care Planned Activity Planned Date Details Comments Source Goal Plan of Care Note [code = 58638-0] Goal Plan of Care Note [code = 08303-5] Goal Plan of Care Note [code = 89437-4] Goal Plan of Care Note [code = 76446-9] Goal Plan of Care Note [code = 12350-5] Goal Plan of Care Note [code = 22928-2] Goal Plan of Care Note [code = 95029-8] Goal Plan of Care Note [code = 97420-2] Goal Plan of Care Note [code = 33838-5] Goal Plan of Care Note [code = 60804-2] Goal Plan of Care Note [code = 24611-1] Goal Plan of Care Note [code = 27373-1] Goal Plan of Care Note [code = 93288-8] Goal Plan of Care Note [code = 48190-2] Goal Plan of Care Note [code = 70898-2] Goal Plan of Care Note [code = 16716-0] Goal Plan of Care Note [code = 85861-0] Goal Plan of Care Note [code = 84979-7] Goal Plan of Care Note [code = 77479-2] Goal Plan of Care Note [code = 43356-2] Goal Plan of Care Note [code = 05212-3] Goal Plan of Care Note [code = 45559-2] Goal Plan of Care Note [code = 74397-3] Goal Plan of Care Note [code = 50284-4] Goal Plan of Care Note [code = 89821-1] Goal Plan of Care Note [code = 85228-9] Goal Plan of Care Note [code = 73807-9] Goal Plan of Care Note [code = 56251-3] Encounters Start Date/Time End Date/Time Encounter Type Admission Type Attending [facility] Facility Care Department Encounter ID Source 2023-04-05 00:00:00 2023-04-05 00:00:00 Outpatient RACHEL MOSS [id number] Randee [facility] 2023-03-28 00:00:00 2023-03-28 00:00:00 Outpatient RACHEL MOSS [id number] Rand[facility] 2023-02-25 00:00:00 2023-02-25 00:00:00 Outpatient RACHEL MOSS [id number] Randee Villatoro 2022-09-13 00:00:00 2022-09-13 00:00:00 Outpatient RACHEL MOSS [id number] Randee shawn 2022-08-26 00:00:00 2022-08-26 00:00:00 Outpatient RACHEL MOSS [id number] Randeewilbert Villatoro 2022-08-13 00:00:00 2022-08-13 00:00:00 Outpatient PRERACHEL GILL [id number] Randee Villatoro 2022-08-12 09:00:00 2022-08-12 09:00:00 Outpatient HAN LIRIANO [id number] Randee Villatoro 2022-08-12 08:15:00 2022-08-12 08:15:00 Outpatient PRERACHEL GILL [id number] Randee Villatoro 2022-07-22 00:00:00 2022-07-22 00:00:00 Outpatient PREZARACHEL Hauser [id number] Randee Villatoro 2022-07-21 00:00:00 2022-07-21 00:00:00 Outpatient PRERACHEL GILL [id number] Randee Villatoro 2022-07-13 11:00:00 2022-07-13 11:00:00 Outpatient PRERACHEL GILL [id number] [facility] 2022-07-01 10:00:00 2022-07-01 10:00:00 Outpatient GUIDOLISS Gupat [id number] Randee [facility] 2022-02-15 15:01:23 2022-02-15 15:01:23 Outpatient [facility] [id number] Del[address] Rowe 2022-01-04 00:00:00 2022-01-04 00:00:00 Outpatient Visit [id number] 2021-12-18 00:00:00 2021-12-18 00:00:00 Outpatient Visit [id number] [id number] 00:00:00 2021-11-26 00:00:00 Outpatient Visit [id number] 2021-11-02 00:00:00 2021-11-02 00:00:00 Outpatient Visit [id number]
--- NOTE | 2023-04-18 12:18 | RAD REPORT ---
EXAM DESCRIPTION: RAD - Chest Pa And Lat (2 Views) - 04/18/2023 12:11 pm CLINICAL HISTORY: CONGESTION Chest pain. COMPARISON: Chest Pa And Lat (2 Views) dated 06/21/2016; Chest Single View dated 08/27/2015; CHEST PA AND LAT 2 VIEW dated 11/16/2014; CHEST PA AND LAT 2 VIEW dated 05/06/2014 FINDINGS: The lungs are clear. The heart is normal in size. No displaced fractures. IMPRESSION: No acute or concerning finding suspected.
[2023-04-18 13:11] LABS: Hematocrit 41.5 % (39.6-49.0); Lymphocytes % 14.6 % (15.3-44.8); MCV 86.4 fL (80-100); MPV 7.7 fL (7.6-11.3); Platelets 299 thou/uL (152-406)
[2023-04-18 13:29] LABS: Magnesium 1.9 mg/dL (1.6-2.4); Potassium 3.9 mEq/L (3.5-5.1); Troponin High Sensitivity 4.2 pg/mL (<58.9)
--- NOTE | 2023-04-18 14:08 | EDPHYS ---
Physician Documentation [facility] Name: Ameya Muniz Age: 42 yrs Sex: Male : 1980 Arrival Date: 04/18/2023 Time: 10:29 Bed DIS2 Private MD: Matt Rapp ED Physician Thiago Berkowitz HPI: 04/18 12:43 This 42 yrs old Male presents to ER via Ambulatory with complaints of ms3 Breathing Difficulty. 12:43 42-year-old male with past medical history of back problems presents to the emergency ms3 department for shortness of breath and tight chest that he rates a 4/10. 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 Patient states his symptoms have been going on for 3 days. Patient states his symptoms are becoming worse. Historical: - Allergies: 11:27 Naproxen; iw 11:27 tramadol; iw - PMHx: 11:27 back problems; iw - Immunization history:: Adult Immunizations up to date. - Social history:: Smoking status: Patient denies any tobacco usage or history of. ROS: 12:43 Constitutional: Negative for fever, and chills. Neck: Negative for injury, pain, and ms3 swelling, 12:43 MS/Extremity: Negative for injury and deformity, Skin: Negative for injury, rash, and discoloration, 12:43 Cardiovascular: Positive for chest pain, 12:43 Respiratory: Positive for shortness of breath, 12:43 All other systems are negative, Exam: 12:43 Constitutional: This is a well developed, well nourished patient who is awake, alert, ms3 and in no acute distress. Head/Face: Normocephalic, atraumatic. Chest/axilla: Normal chest wall appearance and motion. Nontender with no deformity. Cardiovascular: Regular rate and rhythm with a normal S1 and S2. No gallops, murmurs, or rubs. Normal PMI, no JVD. No pulse deficits. Respiratory: Lungs have equal breath sounds bilaterally, clear to auscultation and percussion. No rales, rhonchi or wheezes noted. No increased work of breathing, no retractions or nasal flaring. Abdomen/GI: Soft, non-tender, with normal bowel sounds. No distension or tympany. No guarding or rebound. No evidence of tenderness throughout. Skin: Warm, dry with normal turgor. Normal color with no rashes, no lesions, and no evidence of cellulitis. MS/ Extremity: Pulses equal, no cyanosis. Neurovascular intact. Full, normal range of motion. 14:00 ECG was reviewed by the Attending Physician. ms3 Vital Signs: 11:26 BP 154 / 94; Pulse 77; Resp 16; Temp 98.1; Pulse Ox 99% ; Weight 90.72 kg; Height 5 ft. iw 10 in. ; 11:26 Body Mass Index 28.70 (90.72 kg, 177.8 cm) iw MDM: 12:38 Patient medically screened. ms3 12:43 Differential diagnosis: Anemia CHF exacerbation, Chronic Obstructive Pulmonary Disease ms3 Myocardial Infarction pneumonia, pulmonary edema, reactive airway disease. 14:07 Data reviewed: vital signs, nurses notes, lab test result(s), EKG, radiologic studies, ms3 and as a result, I will discharge patient. Independent interpretation of the following test(s) in the Emergency Department EKG: See my EKG interpretation above. Counseling: I had a detailed discussion with the patient and/or guardian regarding the historical points, exam findings, and any diagnostic results supporting the discharge/admit diagnosis, lab results, radiology results, the need for outpatient follow up, to return to the emergency department if symptoms worsen or persist or if there are any questions or concerns that arise at home. Special discussion: Based on the patient's history, exam, and Dx evaluation, there is no indication for emergent intervention or inpatient Tx. It is understood by the patient/guardian that if the Sx's persist or worsen they need to return immediately for re-evaluation. ED course: Discussed labs, imaging with patient. Patient to follow-up with primary care physician in 2 to 3 days. Patient understands and agrees with plan. All questions were answered. Return precautions discussed include worsening symptoms, chest pain, shortness of breath, or any other concerns. On reevaluation patient is alert and oriented x 4, no apparent distress, nontoxic-appearing, ambulatory number department, speaking full sentences. 04/18 12:42 Order name: Basic Metabolic Panel; Complete Time: 13:54 ms3 04/18 12:42 Order name: CBC with Diff; Complete Time: 13:54 ms3 04/18 12:42 Order name: Magnesium; Complete Time: 13:54 ms3 04/18 12:42 Order name: NT PRO-BNP; Complete Time: 13:54 ms3 04/18 12:42 Order name: Troponin HS; Complete Time: 13:54 ms3 04/18 11:26 Order name: Chest Pa And Lat (2 Views) XRAY; Complete Time: 12:38 iw 04/18 12:42 Order name: EKG; Complete Time: 12:43 ms3 04/18 12:42 Order name: Cardiac monitoring; Complete Time: 14:00 ms3 04/18 12:42 Order name: EKG - Nurse/Tech; Complete Time: 14:00 ms3 04/18 12:42 Order name: IV Saline Lock; Complete Time: 13:03 ms3 04/18 12:42 Order name: Labs collected and sent; Complete Time: 13:03 ms3 04/18 12:42 Order name: O2 Per Protocol; Complete Time: 14:00 ms3 04/18 12:42 Order name: O2 Sat Monitoring; Complete Time: 14:00 ms3 Administered Medications: No medications were administered Disposition Summary: 04/18/23 14:07 Discharge Ordered Notes: Location: Home ms3 Condition: Stable ms3 Diagnosis - Shortness of breath ms3 - Elevated blood-pressure reading, without diagnosis of hypertension ms3 Followup: ms3 - With: Matt Rapp DO - When: 2 - 3 days - Reason: Recheck today's complaints Discharge Instructions: - Discharge Summary Sheet ms3 - Shortness of Breath, Adult ms3 Forms: - Medication Reconciliation Form ms3 - Thank You Letter ms3 - Antibiotic Education ms3 - Prescription Opioid Use ms3 - Patient Portal Instructions ms3 - Leadership Thank You Letter ms3 Signatures: Dispatcher [employer] Abril Lance, RN Thiago Robledo DO DO ms3
--- NOTE | 2023-04-18 14:08 | ER ---
Nurse's Notes [facility] Name: Ameya Muniz Age: 42 yrs Sex: Male : 1980 Arrival Date: 04/18/2023 Time: 10:29 Bed DIS2 Private MD: Matt Rapp Diagnosis: Shortness of breath;Elevated blood-pressure reading, without diagnosis of hypertension Presentation: 04/18 11:26 Chief complaint: Patient states: COUGH AND SOB x2 DAYS, [employer] WORK [employer]MENT. iw Coronavirus screen: At this time, the client does not indicate any symptoms associated with coronavirus-19. Ebola Screen: No symptoms or risks identified at this time. Initial Sepsis Screen: Does the patient meet any 2 criteria? No. Patient's initial sepsis screen is negative. Does the patient have a suspected source of infection? No. Patient's initial sepsis screen is negative. Risk Assessment: Do you want to hurt yourself or someone else? Patient reports no desire to harm self or others. Onset of symptoms is unknown. 11:26 Method Of Arrival: Ambulatory iw 11:26 Acuity: AVIVA 3 iw Triage Assessment: 11:27 General: Appears in no apparent distress. ill, Behavior is calm, cooperative, iw appropriate for age. Pain: Denies pain. Respiratory: Reports shortness of breath cough that is Onset: The symptoms/episode began/occurred at an unknown time. the patient has mild shortness of breath. Historical: - Allergies: 11:27 Naproxen; iw 11:27 tramadol; iw - PMHx: 11:27 back problems; iw - Immunization history:: Adult Immunizations up to date. - Social history:: Smoking status: Patient denies any tobacco usage or history of. Vital Signs: 11:26 BP 154 / 94; Pulse 77; Resp 16; Temp 98.1; Pulse Ox 99% ; Weight 90.72 kg; Height 5 ft. iw 10 in. ; 11:26 Body Mass Index 28.70 (90.72 kg, 177.8 cm) iw ED Course: 10:31 Patient arrived in ED. rg4 10:31 Matt Rapp DO is Private Physician. rg4 11:27 Triage completed. iw 11:27 Arm band placed on. iw 12:13 Chest Pa And Lat (2 Views) XRAY In Process Unspecified. EDMS 12:38 Berkowitz, Thiago, DO is Attending Physician. ms3 13:03 Basic Metabolic Panel Sent. em1 13:03 CBC with Diff Sent. em1 13:03 Magnesium Sent. em1 13:03 NT PRO-BNP Sent. em1 13:03 Troponin HS Sent. em1 13:03 Initial lab(s) drawn, by me, sent to lab. Inserted saline lock: 18 gauge in right em1 forearm, using aseptic technique. Blood collected. 14:06 Matt Rapp DO is Referral Physician. ms3 Administered Medications: No medications were administered Outcome: 14:07 Discharge ordered by MD. ms3 14:23 Patient left the ED. iw Signatures: Dispatcher [employer] EDMS Abril Clement RN Dominic Sandy em1 Breanna Treadwell rg4 Thiago Berkowitz DO DO ms3
[2023-04-18 15:26] VITALS: BP 154/94; TEMP 98.1; O2SAT 99
--- NOTE | 2023-04-20 17:39 | EKG ---
Test Date: 2023-04-18 Test Time: 13:48:06 [employer] Attendant: LEIF MEASUREMENT RESULTS: Intervals: Rate: 69 MD: 166 QRSD: 88 QT: 400 QTc: 428 [place]: P: 65 MD: 166 QRS: 86 T: 93 INTERPRETIVE STATEMENTS: Normal sinus rhythm Nonspecific ST abnormality Abnormal ECG Compared to ECG 08/27/2015 08:50:56 ST (T wave) deviation now present Electronically Signed On 04-20-23 17:34:44 CORRECTION WORKER by Jay Jo
== END ==
LOC: ER 10:29
DX: R06.02 Shortness of breath (principal); R03.0 Elevated blood-pressure reading, without diagnosis of hypertension; R07.89 Other chest pain; Z88.5 Allergy status to narcotic agent
CPT/HCPCS: 36415; 71046; 80048; 83735; 83880; 84484; 85025; 93005; 99283

== ENCOUNTER 2023-12-14 23:42 | Emergency (ER) | payer OTHER ==
--- OUTSIDE RECORDS SUMMARY | 2023-12-14 23:46 | XMS REPORT | Continuity of Care Document ---
Author Name Unknown Address [address] [facility] [address] [place] [address] [facility] thconnect Address [address] [facility] 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 Phone [place] CARDIAC CATH LAB RADIOLOGY TECHNOLOGIST, [facility] Primary Care Physician RENETTA MONTEJO Attending Clinician UnavailSree Chaves Provider Attending Clinician Unavailable SAM DOTY Attending Clinician UnaSUKHDEEP Riley Attending Clinician Unavailable SUKHDEEP HOOKS Attending Clinician Unavailable LANIE JOHNSON Attending Clinician UnavailRACHEL Dubose Attending Clinician Unavailable LAB90 Attending Clinician Unavailable LISS LORA Attending Clinician Unavailable SUKHDEEP HOOKS Admitting Clinician Unavailable Payers Payer Name Policy Type Policy Number Effective Date Expirati on Date Source [facility] [employer] FOC[employer] 9 [id number] 2023 00:00:00 [employer] 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 ON 9 [id number] 2023 00:00:00 Problems Condition Name Condition Details Condition Category Status Onset Date Resolution Date Last Treatment Date Treating Clinician Comments Source Chest pain Chest pain Disease Active 11-13 00:00: 00 Randee Cardozo Externrick l Panic attack Panic attack Disease Active 11-13 00:00: 00 Randee Seybold - Externa l Mild major depression Mild major depression Disease Active 07-20 00:00: 00 Randee Seybold - Externa l Well adult exam Well adult exam Disease Active 08-12 00:00: 00 Randee Seybold - Externa l Elevated BP without diagnosis of hypertensi on Elevated BP without diagnosis of hypertensi on Disease Active 08-12 00:00: 00 Randee Seybold - Externa l Mild major depression Mild major depression Disease Active 08-12 00:00: 00 Randee Seybold - Externa l Depression Depression Disease Active 07-13 00:00: 00 Randee Seybold - Externa l Chronic back pain Chronic back pain Disease Active 07-13 00:00: 00 Randee Seybold - Externa l Neuropathy Neuropathy Disease Active 07-13 00:00: 00 Randee Seybold - Externa l Vitiligo Vitiligo Disease Active 07-13 00:00: 00 Randee Seybold - Externa l Allergies, Adverse Reactions, Alerts Allergy Name Allergy Type Status Severity Reaction(s) Onset Date Inactive Date Treating Clinician Comments Source NO KNOWN ALLERGIE S Drug Class Active [facility] Social History Social Habit Start Date Stop Date Quantity Comments Source Sexual orientation [facility] Gender identity Cherry Villatoro - External History of tobacco use Cigarette Smoker Randee martinez - External Alcoholic beverage intake 2023-10-30 00:00:00 2023-10-30 00:00:00 .57 /d [facility] History of Social function 2023-10-30 00:00:00 2023-10-30 00:00:00 [facility] Cigarettes smoked current (pack per day) - Reported 2023-07-21 00:00:00 2023-07-21 00:00:00 Randee Villatoro - External Cigarette pack-years 2023-07-21 00:00:00 2023-07-21 00:00:00 Randee Villatoro - External Tobacco use and exposure 2023-07-21 00:00:00 2023-07-21 00:00:00 Smokeless tobacco non-user Randee Pandya Alcohol intake 2022-08-12 00:00:00 2022-08-12 00:00:00 Lifetime non-drinker (finding) Randee Pandya Education 2022-07-13 00:00:00 2022-07-13 00:00:00 16 Randee Pandya Sex assigned at 1980 00:00:00 1980 00:00:00 [facility] Smoking Status Start Date Stop Date Source Occasional tobacco smoker 2023-07-21 00:00:00 Randee Pandya Light tobacco smoker 2015-08-12 00:00:00 [facility] Medications Ordered Medication Name Filled Medication Name Start Date Stop Date Current Medication? Ordering Clinician Indication Dosage Frequency Signature (SIG) Comments Components Source Furosemide (LASIX) 20 MG oral Tablet 11-13 11:16: 21 Yes 20mg Take 1 tablet (20 mg total) by mouth every morning. Randee malhotra Gabapentin 600 MG oral Tablet 11-09 00:00: 00 Yes [id number] 600mg Q.25D Take 1 tablet (600 mg total) by mouth 4 times daily. Randee malhotra Lorazepam 1 MG oral Tablet 11-06 00:00: 00 Yes 1mg QD Take 1 tablet (1 mg total) by mouth daily as needed for anxiety. Randee malhotra iopamidol (ISOVUE 370-500 mL) injection 100 mL 10-30 04:15: 00 10-30 04:15 :00 No [id number] 100mL 100 mL, Intravenou s, ONCE, 1 dose, On 10/30/23 at 2315, Routine [facility] ketorolac (TORADOL) injection 15 mg 10-30 02:30: 00 10-30 01:49 :00 No 15mg 15 mg, Slow IV Push, ONCE, 1 dose, On 10/30/23 at 2130, Routine [facility] furosemide (LASIX) injection 40 mg 10-30 01:45: 00 10-30 01:37 :00 No 40mg 40 mg, IV Push, ONCE, 1 dose, On 10/30/23 at 2045, [facility]STEO [facility] furosemide 20 mg tablet 10-29 00:00: 00 Yes [id number] 20mg Take 1 tablet by mouth every morning. [facility] Albuterol HFA 108 (90 Base) MCG/ACT IN AERS 10-25 00:00: 00 Yes INHALE 1 PUFF BY MOUTH EVERY 4 HOURS NEEDED DYSPNEA Randee malhotra predniSONE (DELTASONE) 20 MG oral tablet 10-25 00:00: 00 Yes TAKE 2 TABLETS BY MOUTH EVERY DAY FOR 5 DAYS Randee malhotra Gabapentin 600 MG oral Tablet 09-28 00:00: 00 Yes [id number] 600mg Take 1 tablet (600 mg total) by mouth 4 times daily. Randee malhotra Ibuprofen (MOTRIN) 600 MG oral Tablet 09-22 00:00: 00 Yes TAKE 1 TABLET BY MOUTH EVERY 8 HOURS NEEDED FOR PAIN. TAKE WITH FOOD AND DRINK PLENTY OF WATER. Randee malhotra Gabapentin 600 MG oral Tablet -16 00:00: 00 09-28 00:00 :00 No [id number] 600mg Take 1 tablet (600 mg total) by mouth 3 times daily No driving or drinking alcohol with medication . Randee malhotra Sertraline HCl 100 MG oral Tablet 07-20 00:00: 00 Yes [id number] 100mg QD Take 1 tablet (100 mg total) by mouth daily. Randee malhotra Gabapentin 600 MG oral Tablet 07-20 00:00: 00 Yes [id number] 600mg Take 1 tablet (600 mg total) by mouth 3 times daily No driving or drinking alcohol with medication . Randee malhotra Gabapentin 600 MG oral Tablet 3-13 00:00: 00 07-20 00:00 :00 No [id number] 600mg Take 1 tablet (600 mg total) by mouth 3 times daily. Randee malhotra Sertraline HCl 100 MG oral Tablet -04 00:00: 00 Yes [id number] 100mg Take 1 tablet (100 mg total) by mouth daily Randee malhotra Gabapentin 600 MG oral Tablet - 00:00: 00 Yes [id number] 600mg Take 1 tablet (600 mg total) by mouth 3 times daily Randee malhotra Gabapentin 600 MG oral Tablet 07-13 00:00: 00 Yes [id number] 600mg Take 1 tablet (600 mg total) by mouth 2 times daily Randee malhotra Sertraline HCl 50 MG oral Tablet 07-13 00:00: 00 Yes [id number] 50mg Take 1 tablet (50 mg total) by mouth daily Randee malhotra Acetaminoph en-Codeine #3 300-30 MG oral Tablet -06 00:00: 00 07-13 00:00 :00 No 1{tbl} [...] 600 mg by mouth daily Randee malhotra TAKE 1 CAPSULE AT BEDTIME. 1-09 00:00: 00 Yes 300 Delonte Rowe TAKE 1 TABLET BY MOUTH EVERY 6 HOURS NEEDED FOR PAIN 1-05 00:00: 00 Yes Delonte Rowe HYDROcodone -Acetaminop hen (NORCO) 5-325 MG oral Tablet 1-05 00:00: 00 07-13 00:00 :00 No 1{tbl} Q.25D Take 1 tablet by mouth every 6 hours as needed FOR PAIN Randee malhotra Dose Unknown 7- 00:00: 00 No TAKE 1 CAPSULE AT BEDTIME. 7-25 00:00: 00 No TAKE 1 TABLET TWICE DAILY. 11-02 00:00: 00 No 200 Dose Unknown 11-02 00:00: 00 Yes Delonte Rowe Dose Unknown 11-02 00:00: 00 No TAKE 1 CAPSULE AT BEDTIME. 11-02 00:00: 00 No TAKE 1 CAPSULE AT NIGHT FOR 3 DAYS FOLLOWED BY 2 CAPSULES FOR 3 DAYS , THEN 300 MG AT NIGHT X 30 DAYS 11-02 00:00: 00 No 100 TAKE 1 CAPSULE AT BEDTIME. 11-02 00:00: 00 Yes Delonte Rowe acetaminoph en-codeine (TYLENOL-CO DEINE #3) 300-30 mg tablet 08-27 00:00: 00 Yes [id number] 9108 1{tbl} Take 1 tablet by mouth every 4 (four) hours as needed for Pain (scale 1-3). [facility] cyclobenzap rine 5 mg tablet 11-21 00:00: 00 Yes 5mg Take 1 tablet by mouth 3 (three) times daily. [facility] ibuprofen 600 mg tablet 11-21 00:00: 00 Yes 600mg Take 1 tablet by mouth every 8 (eight) hours as needed for Pain (scale 4-6). [facility] ibuprofen (MOTRIN) 800 mg tablet 08-11 08:21: 38 Yes 800mg Take 800 mg by mouth every 6 (six) hours as needed. [facility] Vital Signs Vital Name Observation Time Observation Value Comments S ource Systolic blood pressure 2023-11-14 16:05:00 138 mm[Hg] Randee barriga - External Diastolic blood pressure 2023-11-14 16:05:00 82 mm[Hg] Randee barriga - External Heart rate 2023-11-14 16:05:00 98 /min Gisela Villatoro - External Body temperature 2023-11-14 16:05:00 36.89 Shreya Randee Villatoro - External Respiratory rate 2023-11-14 16:05:00 20 /min Randee Villatoro - External Body height 2023-11-14 16:05:00 177.8 cm Cherry Villatoro - External Body weight 2023-11-14 16:05:00 103.874 kg Cherry ey Seybold - External BMI 2023-11-14 16:05:00 32.86 kg/m2 Cherry ey Seybold - External Oxygen saturation in Arterial blood by Pulse oximetry 2023-11-14 16:05:00 98 /min Randee Quinno ld - External Systolic blood pressure 2023-10-31 04:00:00 123 mm[Hg] [facility] Diastolic blood pressure 2023-10-31 04:00:00 63 mm[Hg] [facility] Heart rate 2023-10-31 04:00:00 80 /min [facility] Body temperature 2023-10-31 04:00:[address] [facility] Respiratory rate 2023-10-31 04:00:00 10 /min [facility] Oxygen saturation in Arterial blood by Pulse oximetry 2023-10-31 04:00:00 98 /min [facility] Body weight 2023-10-31 01:05:00 114.306 kg [facility] BMI 2023-10-31 01:05:00 35.15 kg/m2 [facility] Body height 2023-10-31 00:46:00 180.3 cm [facility] Systolic blood pressure 2023-07-21 15:41:00 138 mm[Hg] Randee Quinno ld - External Diastolic blood pressure 2023-07-21 15:41:00 84 mm[Hg] Randee Naqviybo ld - External Heart rate 2023-07-21 15:41:00 84 /min Gisela y Seybold - External Body temperature 2023-07-21 15:41:00 36.11 Shreya Randee Seybold - External Respiratory rate 2023-07-21 15:41:00 20 /min Randee Seybold - External Body height 2023-07-21 15:41:00 177.8 cm Cherry ey Seybold - External Body weight 2023-07-21 15:41:00 95.255 kg Cherry ey Seybold - External BMI 2023-07-21 15:41:00 30.13 kg/m2 Cherry ey Seybold - External Oxygen saturation in Arterial blood by Pulse oximetry 2023-07-21 15:41:00 98 /min Randee Naqviybo ld - External Systolic blood pressure 2022-08-12 13:17:00 130 mm[Hg] Randee Seybo ld - External Diastolic blood pressure 2022-08-12 13:17:00 85 mm[Hg] Randee Seybo ld - External Heart rate 2022-08-12 13:02:00 99 /min Pierose y Seybold - External Body temperature 2022-08-12 [...] Pulse oximetry 2022-08-12 13:02:00 98 /min Randee Naqviybo ld - External Systolic blood pressure 2022-07-13 14:49:00 168 mm[Hg] Randee Seybo ld - External Diastolic blood pressure 2022-07-13 14:49:00 84 mm[Hg] Randee Seybo ld - External Heart rate 2022-07-13 14:49:00 102 /min Pierose y Seybold - External Body temperature 2022-07-13 [...] Pulse oximetry 2022-07-13 14:49:00 98 /min Randee Seybo ld - External Heart Rate 2023-09-27 15:44:00 Esmer en F Jae Respiratory Rate 2023-09-27 15:44:00 Delonte F Jae BP Systolic 2023-09-27 15:44:00 Step hen F Jae BP Diastolic 2023-09-27 15:44:00 Anthony phen F Jae Weight Measured 2023-09-27 15:44:00 Delonte F Jae Height Measured 2023-09-27 15:44:00 Delonte F Jae Body Temperature 2023-09-27 15:44:00 Delonte F Jae BP Systolic 2022-01-04 13:23:00 112 mm[Hg] Step hen F Jae BP Diastolic 2022-01-04 13:23:00 73 mm[Hg] Anthony phen F Jae Weight Measured 2022-01-04 13:23:00 203.20 pounds Delonte F Jae Height Measured 2022-01-04 13:23:00 71.00 inches Delonte F Jae Body Temperature 2022-01-04 13:23:00 98.20 degrees Delonte F Jae Heart Rate 2022-01-04 13:23:00 73.00 /min Esmer en F Jae Respiratory Rate 2022-01-04 13:23:00 18.00 /min Delonte F Jae BP Systolic 2021-12-18 13:27:00 135 mm[Hg] Step hen F Jae BP Diastolic 2021-12-18 13:27:00 80 mm[Hg] Anthony phen F Jae Weight Measured 2021-12-18 13:27:00 199.00 pounds Delonte F Jae Height Measured 2021-12-18 13:27:00 71.00 inches Delonte F Jae Body Temperature 2021-12-18 13:27:00 98.20 degrees Delonte F Jae Heart Rate 2021-12-18 13:27:00 79.00 /min Esmer en F Jae Respiratory Rate 2021-12-18 13:27:00 18.00 /min Delonte F Jae BP Systolic 2021-11-02 08:21:00 138 mm[Hg] Step hen F Jae BP Diastolic 2021-11-02 08:21:00 78 mm[Hg] Anthony phen F Jae Weight Measured 2021-11-02 08:21:00 198.00 pounds Delonte F Jae Height Measured 2021-11-02 08:21:00 71.00 inches Delonte Rowe Body Temperature 2021-11-02 08:21:00 98.20 degrees Delonte Rowe Heart Rate 2021-11-02 08:21:00 75.00 /min Esmer Rowe Respiratory Rate 2021-11-02 08:21:00 18.00 /min Delonte Rowe Procedures Procedure Date / Time Performed Performing Clinician Source CT ABDOMEN PELVIS W CONTRAST 2023-10-31 03:17:31 [facility] URINE DRUG (IMMUNOASSAY) - COMPREHENSIVE DRUG SCREEN 2023-10-31 03:08:00 [facility] TROPONIN I 2023-10-31 01:03:[address] [facility] COMP. METABOLIC PANEL (83442) 2023-10-31 01:03:00 [facility] ETHANOL 2023-10-31 01:03:00 Sukhdeep Hooks [facility] CBC WITH DIFF 2023-10-31 01:03:00 Singer Sukhdeep [facility] URINALYSIS 2023-10-31 01:03:[address] [facility] INFLUENZA A/B RSV COVID NAAT 2023-10-31 01:03:00 [facility] N-TERMINAL PRO-BNP 2023-10-31 01:03:00 [facility] Plan of Care Planned Activity Planned Date Details Comments Source Goal Plan of Care Note [code = 59286-3] Goal Plan of Care Note [code = 18968-3] Goal Plan of Care Note [code = 77577-7] Goal Plan of Care Note [code = 22849-5] Goal Plan of Care Note [code = 46662-4] Goal Plan of Care Note [code = 75258-8] Goal Plan of Care Note [code = 38805-1] Goal Plan of Care Note [code = 15256-4] Goal Plan of Care Note [code = 99312-8] Goal Plan of Care Note [code = 19051-1] Goal Plan of Care Note [code = 14744-8] Goal Plan of Care Note [code = 13015-6] Goal Plan of Care Note [code = 33006-9] Goal Plan of Care Note [code = 09930-7] Goal Plan of Care Note [code = 94711-3] Goal Plan of Care Note [code = 18304-1] Goal Plan of Care Note [code = 28685-2] Goal Plan of Care Note [code = 25050-3] Goal Plan of Care Note [code = 52657-5] Goal Plan of Care Note [code = 94403-1] Goal Plan of Care Note [code = 59447-1] Goal Plan of Care Note [code = 68019-4] Goal Plan of Care Note [code = 17793-0] Goal Plan of Care Note [code = 67797-5] Goal Plan of Care Note [code = 20804-2] Goal Plan of Care Note [code = 57000-1] Goal Plan of Care Note [code = 83431-0] Goal Plan of Care Note [code = 96856-0] Encounters Start Date/Time End Date/Time Encounter Type Admission Type Attending [facility] Care Department Encounter ID Source 2023-12-15 10:00:00 2023-12-15 10:00:00 Outpatient RENETTA MONTEJO [id number] [facility] 2023-11-14 11:30:00 2023-11-14 11:30:00 Outpatient RENETTA MONTEJO [id number] [facility] 2023-11-14 00:00:00 2023-11-14 00:00:00 Outpatient RANDEE LIRIANO [id number] [facility] 2023-11-14 00:00:00 2023-11-14 00:00:00 Outpatient RENETTA MONTEJO [id number] [facility] 2023-11-10 00:00:00 2023-11-10 00:00:00 Outpatient RENETTA MONTEJO [id number] [facility] 2023-11-09 00:00:00 2023-11-09 10:47:00 Letter (Out) Campaigns, Generic Provider [facility] [id number] [facility] 2023-11-03 11:15:00 2023-11-03 11:15:00 Outpatient SAM DOTY RANDEE [id number] [facility] 2023-11-03 00:00:00 2023-11-03 00:00:00 Outpatient SAM DOTY RANDEE RANDEE [id number] [facility] 2023-11-03 00:00:00 2023-11-03 00:00:00 Outpatient RENETTA MONTEJO RANDEE LIRIANO [id number] [facility] 2023-10-30 19:51:00 2023-10-31 00:01:00 Emergency X SUKHDEEP HOOKS PHILLIP [facility] [id number] [facility] 2023-10-30 19:51:00 2023-10-31 00:01:00 Emergency Sukhdeep Hooks [facility] [id number] [facility] 2023-10-20 00:00:00 2023-10-20 00:00:00 Outpatient RENETTA MONTEJO RANDEE LIRIANO [id number] [facility] 2023-10-06 00:00:00 2023-10-06 00:00:00 Outpatient ALEXLANIE RANDEE LIRIANO [id number] [facility] 2023-10-06 00:00:00 2023-10-06 00:00:00 Outpatient MARYA MONTEJOTHIA RANDEE LIRIANO [id number] [facility] 2023-09-29 14:30:00 2023-09-29 14:30:00 Outpatient NIKIA RENETTA RANDEE LIRIANO [id number] [facility] 2023-09-27 16:44:17 2023-09-27 16:44:17 Outpatient [facility] [id number] Delonte Baird Jae 2023-09-27 00:00:00 2023-09-27 00:00:00 Outpatient Visit [facility] [id number] Delonte Rowe 2023-09-13 00:00:00 2023-09-13 00:00:00 Outpatient RENETTA MONTEJO RANDEE [id number] [facility] 2023-08-25 00:00:00 2023-08-25 00:00:00 Outpatient RENETTA MONTEJO RANDEE LIRIANO [id number] [facility] 2023-07-28 00:00:00 2023-07-28 00:00:00 Outpatient RENETTA MONTEJO RANDEE LIRIANO [id number] [facility] 2023-07-21 11:00:00 2023-07-21 11:00:00 Outpatient RENETTA MONTEJO RANDEE LIRIANO [id number] [facility] 2023-07-21 00:00:00 2023-07-21 00:00:00 Outpatient PREZAS, RACHEL RANDEE LIRIANO [id number] [facility] 2023-06-22 00:00:00 2023-06-22 00:00:00 Outpatient PREZAS, RACHELCHARIS LIRIANO [id number] [facility] 2023-04-05 00:00:00 2023-04-05 00:00:00 Outpatient PREZAS, RACHEL LIRIANO [id number] [facility] 2023-03-28 00:00:00 2023-03-28 00:00:00 Outpatient PREZAS, RACHEL LIRIANO [id number] [facility] 2023-02-25 00:00:00 2023-02-25 00:00:00 Outpatient PREZAS, [facility]ACHEL [facility]IAN[facility] [id number] [facility] 2022-[facility]-13 00:00:00 2022-09-13 00:00:00 Outpatient PREZAS, RACHEL LIRIANO [id number] [facility] 2022-08-26 00:00:00 2022-08-26 00:00:00 Outpatient PREZAS, RACHEL LIRIANO [id number] [facility] 2022-08-13 00:00:00 2022-08-13 00:00:00 Outpatient RACHEL MOSS [id number] Randee Villatoro 2022-08-12 09:00:00 2022-08-12 09:00:00 Outpatient HAN LIRIANO [id number] [facility] 2022-08-12 08:15:00 2022-08-12 08:15:00 Outpatient RACHEL MOSS [id number] [facility] 2022-07-22 00:00:00 2022-07-22 00:00:00 Outpatient RACHEL MOSS [id number] [facility] 2022-07-21 00:00:00 2022-07-21 00:00:00 Outpatient RACHEL MOSS [id number] [facility] 2022-07-13 11:00:00 2022-07-13 11:00:00 Outpatient RACHEL MOSS [id number] [facility] 2022-07-01 10:00:00 2022-07-01 10:00:00 Outpatient GUIDOLISS GAYTAN [id number] [facility] 2022-02-15 15:01:23 2022-02-15 15:01:23 Outpatient [facility] [id number] Delonte Rowe 2022-01-04 00:00:00 2022-01-04 00:00:00 Outpatient Visit [id number] 2021-12-18 00:00:00 2021-12-18 00:00:00 Outpatient Visit [id number] 00:00:00 2021-11-26 00:00:00 Outpatient Visit [id number] 2021-11-02 00:00:00 2021-11-02 00:00:00 Outpatient Visit [id number] Results Test Description Test Time Test Comments Results Resul t Comments Source CT ABDOMEN PELVIS W CONTRAST 2023-10-11 2 03:25:03 EXAM: CT ABDOMEN PELVIS W CONTRAST ORDERING PROVIDER: SUKHDEEP HOOKS HISTORY: 43 years-old Male; Provided Ordering Indication: Abdominalabscess/infe ction suspected . TECHNIQUE: Contiguous axial imaging from the level of the lung basesthrough the proximal thighs was performed with ?intravenous contrast.Coronal and sagittal reconstructions were obtained. COMPARISON: None FINDINGS: The lung bases have mild atelectatic changes. A 0.5 cm nodule isincidentally seen in the right middle lobe on series 3 image 4. The liver is enlarged at 19.7 cm in the craniocaudal dimension. Theparenchyma is hypoattenuating. No focal lesion is seen. The gallbladder, biliary system, pancreas, spleen, adrenal glands, andkidneys are unremarkable. The gastrointestinal tract has no obstruction. A normal appendix is shownon series 3 image 106. A large volume of stool is present. The urinary bladder and prostate are unremarkable. No free air or fluid collection is visualized. Bilateral enlarged inguinallymph nodes are shown. The vessels are patent. No acute osseous abnormality is visualized. Chronicpars defects are seen at L5. Degenerative changes are noted throughout thespine and are most prominent at L4-L5. Soft tissues are grosslyunremarkable. [facility] [id number] 01:46:16* Test Item Value Reference Range Interpretation Comme nts NT-proBNP (test code = 41158-3) <=125 Lab Interpretation (test cod e = 32971-9) Normal [facility] [id number] 01:41:04* Test Item Value Reference Range Interpretation Comme nts TROPONIN I (test code = 2259863826) <=0.034 WILBUR (test code = WILBUR) Reference (Normal) Range (defined by the 99th percentile reference limit): <= 0.034 ng/mL Note: Cardiac troponin begins to rise 3-4 hours after the onset of ischemia. Repeat in 4-6 hours if the sample was drawn within 3-4 hours of the onset of the symptom and found normal. Diagnosis of myocardial injury is made with acute changes in cTn concentrations with at least one serial sample above the 99th percentile upper reference limit (URL), taken together with the patient's clinical presentation. Biotin has been reported to cause a negative bias, interpret results relative to patient's use of biotin. Lab Interpretation (test code = 70271-6) Normal [facility]. Metabolic Panel (90018)2023-10-31 01:29:25* Test Item Value Reference Range Interpretation Comme nts NA (test code = 6158144734) 140 mmol/L 135-145 K (test code = 0259223142) 4.0 mmol/L 3.5-5.0 CL (test code = 4807154603) 108 mmol/L 98-108 CO2 TOTAL (test code = 6440268794) 24 mmol/L 23-31 AGAP (test code = 8453387847) 8 2-16 BUN (test code = 3205993474) 6 mg/dL 7-23 L GLUCOSE (test code = 9459624531) 106 mg/dL 70-110 CREATININE (test code = 2160-0) 1.00 mg/dL 0.60-1.25 TOTAL BILI (test code = 9152753660) 0.3 mg/dL 0.1-1.1 CALCIUM (test code = 8274327756) 8.1 mg/dL 8.6-10.6 L T PROTEIN (test code = 8276115753) 6.7 g/dL 6.3-8.2 ALBUMIN (test code = 6830963963) 3.9 g/dL 3.5-5.0 ALK PHOS (test code = 4969871622) 108 U/L 34-122 ALTv (test code = 1742-6) 24 U/L 5-50 AST(SGOT) (test code = 3223562069) 27 U/L 13-40 eGFR (test code = 26279-7) 95.8 mL/min/1.73m2 CKD-EPI eGFR (2020). Assuming creatinine has been stable day-to-day for at least three months, the eGFR indicates Category G1 (>= 90 mL/min/1.73 m2) Lab Interpretation (test code = 30056-0) Abnormal [facility] with [id number] 01:14:23* Test Item Value Reference Range Interpretation Comme nts WBC (test code = 6690-2) 7.26 4.20-10.70 RBC (test code = 789-8) 4.05 4.26-5.52 L HGB (test code = 718-7) 12.6 g/dL 12.2-16.4 HCT (test code = 4544-3) 36.9 % 38.4-49.3 L MCV (test code = 787-2) 91.1 fL 81.7-95.6 MCH (test code = 785-6) 31.1 pg 26.1-32.7 MCHC (test code = 786-4) 34.1 g/dL 31.2-35.0 RDW-SD (test code = 30802-4) 43.6 fL 38.5-51.6 RDW-CV (test code = 788-0) 13.2 % 12.1-15.4 PLT (test code = 777-3) 275 150-328 MPV (test code = 26600-2) 9.4 fL 9.8-13.0 L NRBC/100 WBC (test code = 7459002514) 0.0 0.0-10.0 NRBC x10^3 (test code = 7434696152) See_Comment [Automated messa ge] The system which generated this result transmitted reference range: 10*3/?L. The reference range was not used to interpret this result as normal/abnormal. GRAN MAT (NEUT) % (test code = 770-8) 56.7 % IMM GRAN % (test code = 8339102957) 0.30 % LYMPH % (test code = 736-9) 28.4 % MONO % (test code = 5905-5) 8.7 % EOS % (test code = 713-8) 5.6 % BASO % (test code = 706-2) 0.3 % GRAN MAT x10^3(ANC) (test code = 4789334466) 4.12 10*3/uL 1.99-6.95 IMM GRAN x10^3 (test code = 2920140193) 0.00-0.06 LYMPH x10^3 (test code = 731-0) 2.06 10*3/uL 1.09-3.23 MONO x10^3 (test code = 742-7) 0.63 10*3/uL 0.36-1.02 EOS x10^3 (test code = 711-2) 0.41 10*3/uL 0.06-0.53 BASO x10^3 (test code = 704-7) 0.01-0.09 Lab Interpretation (test code = 83029-6) [facility]normal [facility] [id number] 04:53:13* Test Item Value Reference Range Interpretation Comme nts GLUCOSE (test code = 2216) 94 MG/DL 70-99 BUN (test code = 2207) 12 MG/DL 6-20 CREATININE (test code = 4) 0.94 MG/DL 0.80-1.40 eGFR (2020 CKD-EPI) (test code = 57448) 104 ML/MIN/1.73 >60 CALC BUN/CREAT (test code = 2235) 13 RATIO 6-28 SODIUM (test code = 223) 141 MEQ/L 133-146 POTASSIUM (test code = 2228) 4.2 MEQ/L 3.5-5.4 CHLORIDE (test code = 5) 102 MEQ/L 95-107 CARBON DIOXIDE (test code = 6) 27 MEQ/L 19-31 CALCIUM (test code = 9) 9.4 MG/DL 8.5-10.5 PROTEIN, TOTAL (test code = 2228) 7.1 G/DL 6.1-8.3 ALBUMIN (test code = 2200) 4.4 G/DL 3.5-5.2 CALC GLOBULIN (test code = 224) 2.7 G/DL 1.9-3.7 CALC A/G RATIO (test code = 2233) 1.6 RATIO 1.0-2.6 BILIRUBIN, TOTAL (test code = 2206) 0.4 MG/DL <=1.2 ALKALINE PHOSPHATASE (test code = 2204) 133 U/L 40-119 H AST (test code = 2218) 21 U/L 9-50 ALT (test code = 2219) 20 U/L 5-50 UNLESS OTHERWISE INDICATED, ALL TESTING PERFORMED AT [facility] [address] [place] [id number] HARDNESS TESTER: DALLAS CALLES M.D. IA NUMBER [id number] [place] [id number] CBC W/AUTO DIFF WITH [id number] 03:21:57* Test Item Value Reference Range Interpretation Comme nts WBC (test code = 1001) 9.0 K/UL 3.5-11.0 RBC (test code = 1002) 4.45 M/UL 4.50-6.10 L HEMOGLOBIN (test code = 1003) 13.6 G/DL 13.5-17.0 HEMATOCRIT (test code = 1004) 39.7 % 40.0-51.0 L MCV (test code = 1005) 89.2 fL 80.0-99.0 MCH (test code = 1006) 30.6 PG 25.0-33.0 MCHC (test code = 1007) 34.3 G/DL 31.0-36.0 RDW (test code = 1038) 13.3 % 11.5-15.0 NEUTROPHILS (test code = 1008) 62.2 % LYMPHOCYTES (test code = 1010) 23.8 % MONOCYTES (test code = 1011) 9.4 % EOSINOPHILS (test code = 1012) 3.9 % BASOPHILS (test code = 1013) 0.3 % IMMATURE GRANULOCYTES (test code = 1036) 0.4 % NUCLEATED RBCS (test code = 1065) 0.0 /100 WBC'S See_Comment [Automated [employer]] The system which generated this result transmitted reference range: 0.0. The reference range was not used to interpret this result as normal/abnormal. PLATELET COUNT (test code = 1015) 355 K/UL 130-400 ABSOLUTE NEUTROPHILS (test code = 1066) 5.57 K/UL 1.50-7.50 ABSOLUTE LYMPHOCYTES (test code = 1067) 2.13 K/UL 1.00-4.00 ABSOLUTE MONOCYTES (test code = 1068) 0.84 K/UL 0.20-1.00 ABSOLUTE EOSINOPHILS (test code = 1040) 0.35 K/UL 0.00-0.50 ABSOLUTE BASOPHILS (test code = 1069) 0.03 K/UL 0.00-0.20 ABS IMMATURE GRANULOCYTES (test code = 1020) 0.04 K/UL 0.00-0.10 ABS NUCLEATED RBCS (test code = 08606) 0.00 K/UL 0.00-0.11 Notes Date/Time Note Provider Source 2023-11-14 11:16:26 Chief Complaint Patient presents with ER F/U ER follow up for chest and stomach pain. .Anna Valencia LVN [facility] 2023-10-30 23:56:24 Pt given printed and verbal discharge instructions regarding SOB, opioid abuse, pitting edema, lower abdominal pain, history of alcohol consumption, and encouraged hydration, 1 Prescription sent to pharmacy Discussed ibuprofen and to take with food to avoid GI distress. Pt verbalized understanding of instructions, pt awake alert oriented, resp reg unlabored, skin w/d, color appropriate for race, moves all ext well,pt encouraged to follow up with pcp. Advised to seek medical attention for new/prolonged/worsening of symptoms, Symptoms increased SOB No adverse reaction to meds given in ER noted upon discharge PIV d'cd, dressing to site, catheter in tact. Awake, alert oriented, resp reg unlabored, skin w/d, pt leaving ambulatory, in no apparent distress. Pt family waiting in family to drive him home. Griselda Pierre RN [facility] 2023-10-30 19:39:09 Pt arrives ambulatory to ED c/o abdominal swelling, SOB, a raspy voice & swelling of hands. Pt states this has been going on for about a week. He says he went to [facility] about a week ago when it started and was told nothing was wrong, but he says the symptoms are not improving and he feels like it is worse. Pt states he take gabapentin 600mg 4x a day but reports at times he takes more when he has more pain. Sabrina Clement RN [facility]2024-04-11 10:45:01 Chief Complaint Patient presents with REFILLS-NURSE/MD Mary Jo Han LVN [facility]
[2023-12-15] MEDS ORDERED: ONDANSETRON 4 MG/2 ML VIAL ONE (02:14)
[2023-12-15] MEDS ORDERED: FENTANYL CITR 100 MCG/2 ML ONE (02:14)
[2023-12-15] MEDS ORDERED: NA CHLORIDE 0.9% 1,000 ML ONE (02:15)
[2023-12-15 02:34] LABS: Absolute Basophils 0.1 K/uL (0-0.5); Absolute Eosinophils 0.2 K/uL (0-0.5); Absolute Lymphocytes (CBC) 1.6 K/uL (0.7-4.9); Absolute Monocytes 0.8 K/uL (0.1-1.3); Absolute Neutrophil 5.8 K/uL (1.8-8.0); Basophils % 0.7 % (0-1.3); Eosinophils % 2.3 % (0-4.4); Hematocrit 36.7 % (39.6-49.0); Lymphocytes % 19.3 % (15.3-44.8); MPV 8.3 fL (7.6-11.3); Neutrophils % 68.7 % (41.7-73.7); Nucleated Red Blood Cells % 0.2 % (0-0); Platelets 288 thou/uL (152-406); RBC Red Blood Cell Count 4.12 M/uL (4.33-5.43); Red Cell Distribution Width 14.6 % (12.1-15.2)
[2023-12-15 02:48] LABS: MCH 31.1 pg (27.0-35.0); MCHC 34.9 g/dL (32.0-36.0)
[2023-12-15 02:49] LABS: Hemoglobin 12.8 g/dL (13.6-17.9)
[2023-12-15 02:56] LABS: Specific Gravity 1.018 (1.005-1.030); Urine Bilirubin NEGATIVE (Negative); Urine Blood Negative (Negative); Urine Clarity Clear (Clear); Urine Color Light-Yellow (Yellow); Urine Glucose NEGATIVE (Negative); Urine Ketones NEGATIVE (Negative); Urine Microscopic Reflex YN NO UMIC; Urine Nitrite NEGATIVE (Negative); Urine Protein NEGATIVE (Negative); Urine Urobilinogen Normal (Normal); Urine pH 6.5 (5.0-7.0)
[2023-12-15 03:27] LABS: ALT/SGPT 132 U/L (16-61); Albumin 3.1 g/dL (3.4-5.0); Albumin/Globulin Ratio 0.9 (1.1-1.8); Alkaline Phosphatase 140 U/L (45-117); BUN Blood Urea Nitrogen 9 mg/dL (7-18); Bicarbonate 27 mEq/L (21-32); Bilirubin Total 0.3 mg/dL (0.2-1.0); Globulin 3.3 g/dL (2.3-3.5); Glomerular Filtration Rate 80 ml/min (=/>90); Glucose Level 125 mg/dL (74-106); Lipase 48 U/L (13-75); Protein, Total 6.4 g/dL (6.4-8.2); Sodium Level 141 mEq/L (136-145)
[2023-12-15 03:28] LABS: Bilirubin Direct < 0.2 mg/dL (0-0.2); Bilirubin Indirect, Calculated 0.1 mg/dL (0.2-0.8)
[2023-12-15 03:41] LABS: AST/SGOT 253 U/L (15-37)
--- NOTE | 2023-12-15 04:12 | EDPHYS ---
Physician Documentation [facility] Name: Ameya Muniz Age: 43 yrs Sex: Male : 1980 Arrival Date: 12/14/2023 Time: 23:42 Bed 8 Private MD: ED Physician Hammad Ivey HPI: 12/14 01:29 This 43 yrs old Male presents to ER via Ambulatory with complaints of Fall fantasma Injury, Head Injury Without LOC-Adult. 01:29 Details of fall: The patient fell from a height, off a roof, approximately 10 feet. fantasma Onset: The symptoms/episode began/occurred just prior to arrival. Associated injuries: The patient sustained injury to the head, neck injury, injury to the chest, injury to the abdomen. Severity of symptoms: At their worst the symptoms were moderate, in the emergency department the symptoms are unchanged. The patient has not experienced similar symptoms in the past. Historical: - Allergies: 00:16 Naproxen; jb4 00:16 tramadol; jb4 - Home Meds: 00:16 gabapentin oral [Active]; jb4 - PMHx: 00:16 back problems; nerve pain (back problems); jb4 - PSHx: 00:16 None; jb4 - Immunization history:: Adult Immunizations up to date. - Infectious Disease History:: Denies. - Immunization history: Last tetanus immunization: - up to date. - Social history:: Smoking status: Patient reports the use of cigarette tobacco products, smokes one pack cigarettes per day. - Family history:: not pertinent. ROS: 01:29 Constitutional: Negative for fever, chills, and weight loss, Eyes: Negative for injury, fantasma pain, redness, and discharge, ENT: Negative for injury, pain, and discharge, Neck: Negative for injury, pain, and swelling, Respiratory: Negative for shortness of breath, cough, wheezing, and pleuritic chest pain, Back: Negative for injury and pain, : Negative for injury, bleeding, discharge, and swelling, MS/Extremity: Negative for injury and deformity, Skin: Negative for injury, rash, and discoloration, Neuro: Negative for headache, weakness, numbness, tingling, and seizure, Psych: Negative for depression, anxiety, suicide ideation, homicidal ideation, and hallucinations, Allergy/Immunology: Negative for hives, rash, and allergies, Endocrine: Negative for neck swelling, polydipsia, polyuria, polyphagia, and marked weight changes, Hematologic/Lymphatic: Negative for swollen nodes, abnormal bleeding, and unusual bruising, :29 Cardiovascular: Positive for chest pain, with movement, of the right lateral anterior chest and right lateral posterior chest, :29 Abdomen/GI: Positive for abdominal pain, of the anterior aspect of right lateral abdomen, posterior aspect of right lateral abdomen, right upper quadrant and right lower quadrant, Exam: : Constitutional: This is a well developed, well nourished patient who is awake, alert, fantasma and in no acute distress. Head/Face: Normocephalic, atraumatic. Eyes: Pupils equal round and reactive to light, extra-ocular motions intact. Lids and lashes normal. Conjunctiva and sclera are non-icteric and not injected. Cornea within normal limits. Periorbital areas with no swelling, redness, or edema. ENT: Nares patent. No nasal discharge, no septal abnormalities noted. Tympanic membranes are normal and external auditory canals are clear. Oropharynx with no redness, swelling, or masses, exudates, or evidence of obstruction, uvula midline. Mucous membranes moist. Neck: Trachea midline, no thyromegaly or masses palpated, and no cervical lymphadenopathy. Supple, full range of motion without nuchal rigidity, or vertebral point tenderness. No Meningismus. Chest/axilla: Normal chest wall appearance and motion. Nontender with no deformity. No lesions are appreciated. Cardiovascular: Regular rate and rhythm with a normal S1 and S2. No gallops, murmurs, or rubs. Normal PMI, no JVD. No pulse deficits. Male : Normal genitalia with no discharge or lesions. Skin: Warm, dry with normal turgor. Normal color with no rashes, no lesions, and no evidence of cellulitis. MS/ Extremity: Pulses equal, no cyanosis. Neurovascular intact. Full, normal range of motion. Neuro: Awake and alert, GCS 15, oriented to person, place, time, and situation. Cranial nerves II-XII grossly intact. Motor strength 5/5 in all extremities. Sensory grossly intact. Cerebellar exam normal. Normal gait. Psych: Awake, alert, with orientation to person, place and time. Behavior, mood, and affect are within normal limits. : Respiratory: the patient does not display signs of respiratory distress, Respirations: normal, Breath sounds: are clear throughout, no bronchial sounds, no decreased breath sounds, no rales, rhonchi, no stridor, no wheezing, Respiratory rate: 16 01:29 Musculoskeletal/extremity: ROM: no acute changes, Circulation is intact in all extremities. Sensation intact. Compartment Syndrome exam of affected extremity: is normal. DVT Exam: No signs of deep vein thrombosis. no pain, no swelling, no tenderness, negative Homans' sign noted on exam, no appreciated bluish discoloration, no erythema, no increased warmth, Vital Signs: 00:15 BP 128 / 89; Pulse 93; Resp 16; Temp 98.1(TE); Pulse Ox 95% on R/A; Weight 95.25 kg jb4 (R); Height 5 ft. 11 in. (R); 02:26 BP 122 / 80; Pulse 82; Resp 13; Pulse Ox 94% ; vc1 04:16 BP 139 / 96; Pulse 85; Resp 15; Pulse Ox 96% ; vc1 00:15 Body Mass Index 29.29 (95.25 kg, 180.34 cm) jb4 Madina Coma Score: 00:22 Eye Response: spontaneous(4). Motor Response: obeys commands(6). Verbal Response: lg3 oriented(5). Total: 15. Trauma Score (Adult): 00:22 Eye Response: spontaneous(1); Verbal Response: oriented(1); Motor Response: obeys lg3 commands(2); Systolic BP: > 89 mm Hg(4); Respiratory Rate: 10 to 29 per min(4); Madina Score: 15; Trauma Score: 12 MDM: 12/13 23:46 Patient medically screened. [facility] 12/14 01:35 Differential diagnosis: abrasion, closed head injury, contusion, fracture, laceration, fantasma multiple trauma, sprain, strain. Data reviewed: vital signs, nurses notes, lab test result(s), radiologic studies, CT scan, plain films. Consideration of Admission/Observation Patient was admitted/placed on observation. Escalation of care including admission/observation considered. I considered the following discharge prescriptions or medication management in the emergency department Medications were administered in the Emergency Department. See MAR. Independent interpretation of the following test(s) in the Emergency Department CT Scan: My interpretation is ct trauma. Test considered but Not performed: Ultrasound no FAST. Care significantly affected by the following chronic conditions: BACK PROB, NERVE PAIN. Counseling: I had a detailed discussion with the patient and/or guardian regarding the historical points, exam findings, and any diagnostic results supporting the discharge/admit diagnosis, lab results, radiology results, the need for outpatient follow up, for definitive care, a family practitioner, a general surgeon. 12/14 01:29 Order name: Basic Metabolic Panel [facility] 12/14 01:29 Order name: CBC with Diff; Complete Time: 02:51 [facility] 12/14 01:29 Order name: Type And Screen [facility] 12/14 01:29 Order name: Urinalysis w/ reflexes; Complete Time: 03:37 [facility] 12/14 01:29 Order name: LFT's [facility] 12/14 01:29 Order name: Lipase [facility] 12/14 02:58 Order name: Type and Screen Tube method [facility] 12/13 23:46 Order name: CT Head C Spine [facility] 12/14 01:29 Order name: CT Chest, Abdomen, Pelvis - W/Contrast [facility] 12/14 01:29 Order name: INCENTIVE SPIROMETRY [facility] 12/14 01:29 Order name: Labs collected and sent; Complete Time: 02:14 fantasma Administered Medications: 02:22 Drug: fentaNYL (PF) IVP 50 mcg IVP once Route: IVP; Site: left antecubital; vc1 03:00 Follow up: Response: No adverse reaction; Marked relief of symptoms vc1 02:22 Drug: Ondansetron IVP 4 mg IVP once; over 2 minutes Route: IVP; Site: left antecubital; vc1 03:00 Follow up: Response: No adverse reaction; Marked relief of symptoms vc1 02:23 Drug: NS 0.9% IV 1000 ml IV at 1 bolus Per protocol; 1000 mL bolus Route: IV; Rate: 1 vc1 bolus; Site: left antecubital; 03:20 Follow up: IV Status: Completed infusion; IV Intake: 1000ml vc1 Disposition Summary: 12/15/23 04:11 Discharge Ordered Notes: Location: Home fantasma Problem: new fantasma Symptoms: have improved fantasma Condition: Stable fantasma Diagnosis - Fall (on) (from) unspecified stairs and steps - 10 FOOT fantasma - Unspecified injury of head, initial encounter fantasma - Strain of muscle, fascia and tendon at neck level, initial encounter fantasma - Contusion of back wall of thorax fantasma - Contusion of front wall of thorax fantasma - Strain of muscle, fascia and tendon of abdomen, lower back and pelvis fantasma - Obesity, unspecified fantasma Followup: fantasma - With: Private Physician - When: 2 - 3 days - Reason: Recheck today's complaints, Continuance of care, Re-evaluation by your physician Followup: fantasma - With: Jeremias Sun MD - When: 2 - 3 days - Reason: Recheck today's complaints, Re-evaluation by your physician Discharge Instructions: - Discharge Summary Sheet fantasma - Head Injury, Adult fantasma - Muscle Strain fantasma - Obesity, Adult fantasma - How to Use an Incentive Spirometer fantasma - Muscle Strain, [id number] fantasma - Head Injury, Adult, [id number] fantasma - Incentive Spirometer Record [facility] Forms: - Medication Reconciliation Form fantasma - Antibiotic Education fantasma - Prescription Opioid Use fantasma - Patient Portal Instructions fantasma - Leadership Thank You Letter fantasma - Work release form vc1 Prescriptions: - acetaminophen-codeine 300-30 mg Oral tablet - take 2 tablet ORAL route every 6 hours as needed for pain; 24 tablet; Refills: fantasma 0, Product Selection Permitted - Medrol (Khang) 4 mg Oral Tablets, Dose Pack - take 1 tablet ORAL route as directed - follow package instructions; 1 packet; fantasma Refills: 0, Product Selection Permitted - methocarbamol 750 mg Oral tablet - take 1 tablet ORAL route every 4 hours; 30 tablet; Refills: 0, Product fantasma Selection Permitted Signatures: Dispatcher [employer] EDHammad Harkins MD MD cha Bryson, James, RN RN jb4 Cheri Byrd RN RN lg3 Belinda Mock RN RN vc1 Corrections: (The following items were deleted from the chart) 01:30 01:30 BASIC METABOLIC PANEL+C.LAB.BRZ ordered. EDMS EDMS 01:30 01:30 CBC+H.LAB.BRZ ordered. EDMS EDMS :30 01:30 TYPE AND SCREEN+BB.LAB.BRZ ordered. EDMS EDMS :30 01:30 Urinalysis+U.LAB.BRZ ordered. EDMS EDMS 01:30 01:30 HEPATIC FUNCTION+C.LAB.BRZ ordered. EDMS EDMS 01:30 01:30 LIPASE+C.LAB.BRZ ordered. EDMS EDMS
--- NOTE | 2023-12-15 04:12 | ER ---
Nurse's Notes [facility] Name: Ameya Muniz Age: 43 yrs Sex: Male : 1980 Arrival Date: 12/14/2023 Time: 23:42 Bed 8 Private MD: Diagnosis: Fall (on) (from) unspecified stairs and steps-10 FOOT;Unspecified injury of head, initial encounter;Strain of muscle, fascia and tendon at neck level, initial encounter;Contusion of back wall of thorax;Contusion of front wall of thorax;Strain of muscle, fascia and tendon of abdomen, lower back and pelvis;Obesity, unspecified Presentation: 12/14 00:15 Chief complaint: Patient states: I was working on the roof earlier today. I fell and jb4 hit my head on something on the roof. I did not pass out. I sat down to watch a movie, I do not remember watching the movie. I have been very dizzy since, and have a bad pain on the right side of my head. Coronavirus screen: At this time, the client does not indicate any symptoms associated with coronavirus-19. Ebola Screen: No symptoms or risks identified at this time. Initial Sepsis Screen: Does the patient meet any 2 criteria? HR > 90 bpm. Yes Does the patient have a suspected source of infection? No. Patient's initial sepsis screen is negative. Risk Assessment: Do you want to hurt yourself or someone else? Patient reports no desire to harm self or others. Onset of symptoms was December 15, 2023. Transition of care: patient was not received from another setting of care. 00:15 Method Of Arrival: Ambulatory jb4 00:15 Acuity: AVIVA 2 jb4 00:23 Care prior to arrival: None. Mechanism of Injury: Fall from standing position. Trauma lg3 event details: Injury occurred in the [facility], Injury occurred: at home. Injury occurred: December 14, 2023. Trauma Activation: Not Applicable Physician: ED Physician; Name: ; Notified At: ; Arrived At: Physician: General Surgeon; Name: ; Notified At: ; Arrived At: Physician: Radiology; Name: ; Notified At: ; Arrived At: Physician: Respiratory; Name: ; Notified At: ; Arrived At: Physician: Lab; Name: ; Notified At: ; Arrived At: Historical: - Allergies: 00:16 Naproxen; jb4 00:16 tramadol; jb4 - Home Meds: 00:16 gabapentin oral [Active]; jb4 - PMHx: 00:16 back problems; nerve pain (back problems); jb4 - PSHx: 00:16 None; jb4 - Immunization history:: Adult Immunizations up to date. - Infectious Disease History:: Denies. - Immunization history: Last tetanus immunization: - up to date. - Social history:: Smoking status: Patient reports the use of cigarette tobacco products, smokes one pack cigarettes per day. - Family history:: not pertinent. Screenin:20 [facility] ED Fall Risk Assessment (Adult) History of falling in the last 3 months, lg3 including since admission Yes- single mechanical fall (1 pt) Confusion or Disorientation No (0 pts) Intoxicated or Sedated No (0 pts) Impaired Gait No (0 pts) Mobility Assist Device Used No (0 pt) Altered Elimination No (0 pt) Score/Fall Risk Level 0 - 2 = Low Risk Oriented to surroundings, Maintained a safe environment, Educated pt \T\ family on fall prevention, incl call for assistance when getting out of bed, Assessed \T\ reinforced patient's understanding of fall precautions. Abuse screen: Denies threats or abuse. Denies injuries from another. Nutritional screening: No deficits noted. Tuberculosis screening: No symptoms or risk factors identified. Primary Survey: 00:22 NO uncontrolled hemorrhage observed. A: The client is awake and alert. The airway is lg3 patent. Breathing/Chest: Spontaneous respiratory effort, equal unlabored respirations, breath sounds clear bilaterally, regular pattern, symmetrical chest rise and fall. Circulation: No external hemorrhage present. Regular and strong central pulse, skin warm/dry/normal color. Disability Pupils are equal, round, reactive to light and accommodation. Client is alert. Client responds to verbal stimuli. Exposure/Environment: All clothing and personal items were removed. Forensic evidence collection is not deemed to be indicated at this time. Items placed in patient belonging bag. 00:23 Reassessment Breathing: Spontaneous respiratory effort, equal unlabored respirations, lg3 breath sounds clear bilaterally, regular pattern with symmetrical chest rise and fall. Respiratory effort Spontaneous Unlabored Circulation: No external hemorrhage noted. Regular and strong central pulse, skin warm/dry/normal color. Disability: Pupils Pupils are equal, round, reactive to light and accomodation. Alert Verbal stimuli. Assessment: 00:20 General: Appears in no apparent distress. comfortable, Behavior is calm, cooperative. lg3 Pain: Complains of pain in head Pain does not radiate. Pain currently is 4 out of 10 on a pain scale. Quality of pain is described as pressure. Neuro: No deficits noted. Palma Agitation-Sedation Scale (RASS): 0 - Alert and Calm Level of Consciousness is awake, alert, obeys commands, Oriented to person, place, time, situation, Reports dizziness, headache in right parietal area, occipital area. Cardiovascular: No deficits noted. Denies chest pain, shortness of breath, Capillary refill < 3 seconds Clubbing of nail beds is absent JVD is absent Patient's skin is warm and dry. Respiratory: No deficits noted. Airway is patent Respiratory effort is even, unlabored, Respiratory pattern is regular, symmetrical. GI: No deficits noted. No signs and/or symptoms were reported involving the gastrointestinal system. : No deficits noted. No signs and/or symptoms were reported regarding the genitourinary system. EENT: No deficits noted. No signs and/or symptoms were reported regarding the EENT system. Derm: No deficits noted. No signs and/or symptoms reported regarding the dermatologic system. Skin is intact, is healthy with good turgor, Skin is dry, Skin is normal, Skin temperature is warm. Musculoskeletal: No deficits noted. No signs and/or symptoms reported regarding the musculoskeletal system. Circulation, motion, and sensation intact. Range of motion: intact in all extremities. 02:26 Reassessment: Patient and/or family updated on plan of care and expected duration. Pain vc1 level reassessed. Patient is alert, oriented x 3, equal unlabored respirations, skin warm/dry/pink. Patient states feeling better. Patient states symptoms have improved. 04:23 Reassessment: Patient appears in no apparent distress at this time. No changes from vc1 previously documented assessment. Patient and/or family updated on plan of care and expected duration. Pain level reassessed. Patient is alert, oriented x 3, equal unlabored respirations, skin warm/dry/pink. Vital Signs: 00:15 BP 128 / 89; Pulse 93; Resp 16; Temp 98.1(TE); Pulse Ox 95% on R/A; Weight 95.25 kg jb4 (R); Height 5 ft. 11 in. (R); 02:26 BP 122 / 80; Pulse 82; Resp 13; Pulse Ox 94% ; vc1 04:16 BP 139 / 96; Pulse 85; Resp 15; Pulse Ox 96% ; vc1 00:15 Body Mass Index 29.29 (95.25 kg, 180.34 cm) jb4 Madina Coma Score: 00:22 Eye Response: spontaneous(4). Motor Response: obeys commands(6). Verbal Response: lg3 oriented(5). Total: 15. Trauma Score (Adult): 00:22 Eye Response: spontaneous(1); Verbal Response: oriented(1); Motor Response: obeys lg3 commands(2); Systolic BP: > 89 mm Hg(4); Respiratory Rate: 10 to 29 per min(4); Madina Score: 15; Trauma Score: 12 ED Course: 12/13 23:45 Patient arrived in ED. ra3 23:46 Hammad Ivey MD is Attending Physician. [facility] 23:54 Cheri Byrd RN is Primary Nurse. lg3 12/14 00:16 Triage completed. jb4 00:16 Arm band placed on right wrist. jb4 00:20 Patient has correct armband on for positive identification. Placed in gown. Bed in low lg3 position. Call light in reach. Side rails up X 1. Client placed on continuous cardiac and pulse oximetry monitoring. NIBP monitoring applied. Door closed. Noise minimized. Warm blanket given. Pillow given. 00:22 Patient maintains SpO2 saturation greater than 95% on room air. Thermoregulation: warm lg3 blanket given to patient. 00:25 CT Head C Spine In Process Unspecified. EDMS 02:13 Missed attempt(s): 20 gauge in left forearm. Bleeding controlled, band aid applied, rv1 catheter tip intact. 02:13 Inserted saline lock: 20 gauge in left antecubital area, using aseptic technique. Blood rv1 collected. Flushed with 10 mL NS. 02:14 Lipase Sent. rv1 02:14 LFT's Sent. rv1 02:14 Basic Metabolic Panel Sent. rv1 02:14 CBC with Diff Sent. rv1 02:14 Type And Screen Sent. rv1 02:23 INCENTIVE SPIROMETRY Sent. vc1 03:37 CT Chest, Abdomen, Pelvis - W/Contrast In Process Unspecified. EDMS 04:11 Jeremias Sun MD is Referral Physician. [facility] 04:25 No provider procedures requiring assistance completed. IV discontinued, intact, vc1 bleeding controlled, No redness/swelling at site. Pressure dressing applied. 04:26 Provided Education on: follow up with Dr. Sun. vc1 Administered Medications: 02:22 Drug: fentaNYL (PF) IVP 50 mcg IVP once Route: IVP; Site: left antecubital; vc1 03:00 Follow up: Response: No adverse reaction; Marked relief of symptoms vc1 02:22 Drug: Ondansetron IVP 4 mg IVP once; over 2 minutes Route: IVP; Site: left antecubital; vc1 03:00 Follow up: Response: No adverse reaction; Marked relief of symptoms vc1 02:23 Drug: NS 0.9% IV 1000 ml IV at 1 bolus Per protocol; 1000 mL bolus Route: IV; Rate: 1 vc1 bolus; Site: left antecubital; 03:20 Follow up: IV Status: Completed infusion; IV Intake: 1000ml vc1 Medication: 00:24 VIS not applicable for this client. lg3 Intake: 03:20 IV: 1000ml; Total: 1000ml. vc1 Output: 04:26 Urine: 450ml (Voided); Total: 450ml. vc1 Outcome: 04:11 Discharge ordered by . [facility] 04:25 Discharged to home ambulatory, vc1 04:25 Condition: good 04:25 Discharge instructions given to patient, Instructed on discharge instructions, follow up and referral plans. medication usage, Demonstrated understanding of instructions, follow-up care, medications, Prescriptions given X 3, 04:[address] resultsPatient's length of stay extended due to vc1 04:27 Patient left the ED. vc1 Signatures: Dispatcher [employer] EDIL Hammad Ivey MD MD cha Bryson, James RN HAO [email or web address] Cheri Byrd RN RN lg3 Belinda Mock RN RN vc1 Sary [email or web address] Nimo Wallace ra3 Corrections: (The following items were deleted from the chart) 01:32 00:15 Chief complaint: Patient states: I was working on the roof earlier today. I fell jb4 and hit my head. I did not pass out. I sat down to watch a movie, I do not remember watching the movie. I have been very dizzy since, and have a bad pain on the right side of my head. jb4
[2023-12-15 04:46] VITALS: TEMP 98.1
[2023-12-15 04:50] VITALS: BP 139/96; O2SAT 96
--- NOTE | 2023-12-15 10:25 | RAD REPORT ---
EXAM DESCRIPTION: CT - Head C Spine Mpr Wo Con - 12/15/2023 6:55 am CLINICAL HISTORY: The patient is 43 years old and is Male; Swelling;Trauma TECHNIQUE: Axial computed tomography images of the head/brain and cervical spine without intravenous contrast. Sagittal and coronal reformatted images were created and reviewed. This CT exam was pe rformed using one or more of the following dose reduction techniques: automated exposure control, a djustment of the mA and/or kV according to patient size, and/or use of iterative reconstruction techn ique. COMPARISON: Currently unavailable. FINDINGS: BRAIN: Unremarkable. No hemorrhage. No significant white matter disease. No edema. VENTRICLES: Unremarkable. No ventriculomegaly. SKULL: No acute fracture. SINUSES: Unremarkable as visualized. No acute sinusitis. MASTOID AIR CELLS: Unremarkable as visualized. No mastoid effusion. VERTEBRAE: Straightening of the normal cervical curvature is present. The vertebral body height s and alignment are maintained. There is no acute fracture. DISCS/SPINAL CANAL/NEURAL FORAMINA: Intervertebral disc space narrowing with anterior osteophyte formation at C5-C6 is present. The remaining intervertebral disc spaces are maintained. There is no s ignificant canal stenosis or neural foraminal narrowing. SOFT TISSUES: The soft tissues are normal. LUNG APICES: The lung apices are clear. IMPRESSION: 1. No acute intracranial findings. 2. Straightening of the normal cervical curvature is present. Findings may be secondary to patien t position versus muscle spasm. Electronically signed by: Marianne White MD 12/15/2023 01:35 AM CDT Due to temporary technical issues with the PACS/Fluency reporting system, reports are being signed by the in house radiologist without review as a courtesy to ensure prompt reporting. The interpreting r adiologist is fully responsible for the content of the report.
--- NOTE | 2023-12-15 11:09 | RAD REPORT ---
EXAM DESCRIPTION: CT - Chest Abdomen Pelvis W Cont - 12/15/2023 6:56 am CLINICAL HISTORY: Trauma COMPARISON: None TECHNIQUE: CT images of the chest, abdomen and pelvis obtained following adminstration of intravenou s contrast. Multiplanar reformats were provided. Dose lowering techniques such as automated exposure control, iterative reconstruction, and mA and/or kV adjustment for patient size was utilized for this examination. 3D MIP reformatted images were obtained of the chest on a separate workstation. FINDINGS: CHEST LOWER NECK: Unremarkable. AIRWAYS: Trachea and mainstem bronchi are patent. LUNGS/PLEURA: Mild dependent changes at bilateral lower lobes. No focal air space consolidation, mass , or nodules present. No pleural effusions or pneumothorax. VASCULATURE: No aortic aneurysm. MEDIASTINUM/NODES: No pathologic adenopathy. HEART: Normal heart size. No pericardial effusion. OSSEOUS/CHEST WALL: No acute findings. No compression deformity. ABDOMEN/PELVIS FINDINGS: LIVER: Unremarkable. BILIARY: Unremarkable. PANCREAS: Unremarkable. SPLEEN: Unremarkable. ADRENALS: Unremarkable. KIDNEYS/URETERS: Unremarkable. BOWEL/STOMACH: Unremarkable. Normal appendix. MESENTERY/PERITONEUM: Unremarkable. LYMPH NODES: Unremarkable. URINARY BLADDER: Unremarkable. REPRODUCTIVE: Unremarkable. VASCULAR: Unremarkable. ABDOMINAL/PELVIC WALL: Small fat containing umbilical hernia. BONES: Corticated fragmentation at right L2 transverse process and left acetabulum, likely chronic. 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 No compression deformity, no r osteolytic or sclerotic lesion. IMPRESSION: 1. No acute posttraumatic injury in CT chest, abdomen and pelvis. 2. Old injury at right L2 transverse process, left acetabulum and bilateral L5 pars interarticulari s. Electronically signed by: Osiris Chowdhury MD 12/15/2023 04:04 AM CDT Due to temporary technical issues with the PACS/Fluency reporting system, reports are being signed by the in house radiologist without review as a courtesy to ensure prompt reporting. The interpreting r adiologist is fully responsible for the content of the report.
== END 2023-12-15 04:27 | disposition home or self-care (01) ==
LOC: ER 23:42
DX: S16.1XXA Strain of muscle, fascia and tendon at neck level, initial encounter (principal); S39.012A Strain of muscle, fascia and tendon of lower back, initial encounter; S39.011A Strain of muscle, fascia and tendon of abdomen, initial encounter; S39.013A Strain of muscle, fascia and tendon of pelvis, initial encounter; S20.221A Contusion of right back wall of thorax, initial encounter; S20.211A Contusion of right front wall of thorax, initial encounter; E66.9 Obesity, unspecified; Z68.29 Body mass index [BMI] 29.0-29.9, adult; W10.9XXA Fall (on) (from) unspecified stairs and steps, initial encounter
CPT/HCPCS: 96361; 85025; 80048; 36415; 86900; 86850 ×2; 86901; 80076; 81003; 83690; 70450; 72125; 71260; 74177; 96375; 96374; 99284; Q9967; J3010; J2405; J7030

== ENCOUNTER 2024-01-29 10:34 | Emergency (ER) | payer OTHER ==
--- OUTSIDE RECORDS SUMMARY | 2024-01-29 10:38 | XMS REPORT | Continuity of Care Document ---
Author Name Unknown Address [address] [facility] [place] [address] [facility] thconnect Address [address] [place] [address] Care Team Providers Care Salon Sales Consultant Name Role Phone Gillette PATRICK, [facility] Primary Care Physician RENETTA MONTEJO Attending Clinician UnavailSree Chaves Provider Attending Clinician Unavailable SAM DOTY Attending Clinician UnaSUKHDEEP Riley Attending Clinician Unavailable SUKHDEEP HOOKS Attending Clinician Unavailable LANIE JOHNSON Attending Clinician UnavailRACHEL Dubose Attending Clinician Unavailable LAB90 Attending Clinician Unavailable LISS LORA Attending Clinician Unavailable SUKHDEEP HOOKS Admitting Clinician Unavailable Payers Payer Name Policy Type Policy Number Effective Date Expirati on Date Source [facility] [employer] FOCUS 9 [id number] 2023 00:00:00 [employer] 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 9 [id number] 2023 00:00:00 Problems Condition Name Condition Details Condition Category Status Onset Date Resolution Date Last Treatment Date Treating Clinician Comments Source Chest pain Chest pain Disease Active 11-13 00:00: 00 Randee Cardozo Externrick l Panic attack Panic attack Disease Active 11-13 00:00: 00 Randee Seybold - Externa l Mild major depression Mild major depression Disease Active 4-11 00:00: 00 Randee Seybold - Externa l [...] Date Inactive Date Treating Clinician Comments Source Nsaids Propensi ty to adverse reaction s Active Hives 05-08 00:00: 00 Randee Seybold - Externa l Naproxen Propensi ty to adverse reaction s Active Nausea and Vomiting 2013-04 00:00: 00 Randee Seybold - Externa l Tramadol Propensi ty to adverse reaction s Active Hives 2013-04 00:00: 00 Randee Seybold - Externa l NO KNOWN ALLERGIE S Drug Class Active [facility] Social History Social Habit Start Date Stop Date Quantity Comments Source Sexual orientation [facility] Gender identity Cherry Villatoro - External History of Occupation Randee Villatoro - External History of tobacco use Cigarette Smoker Randee martinez - External Alcoholic beverage intake 2023-10-30 00:00:00 2023-10-30 00:00:00 .57 /d [facility] History of Social function 2023-10-30 00:00:00 2023-10-30 00:00:00 [facility] Cigarettes smoked current (pack per day) - Reported 2023-07-21 00:00:00 2023-07-21 00:00:00 Randee Pandya Cigarette pack-years 2023-07-21 00:00:00 2023-07-21 00:00:00 Randee Cardozo External Tobacco use and exposure 2023-07-21 00:00:00 2023-07-21 00:00:00 Smokeless tobacco non-user Randee Villatoro - External Alcohol intake 2022-08-12 00:00:00 2022-08-12 00:00:00 Lifetime non-drinker (finding) Randee Villatoro - [employer] 2022-07-13 00:00:00 2022-07-13 00:00:00 16 Randee Villatoro - External Sex 2022-04-29 13:08:32 2022-04-29 13:08:32 Male (finding) Randee Villatoro - External Sex assigned at 1980 00:00:00 1980 00:00:00 [facility] Smoking Status Start Date Stop Date Source Occasional tobacco smoker 2023-07-21 00:00:00 Randee Villatoro - External Light tobacco smoker 2015-08-12 00:00:00 [facility] Medications Ordered Medication Name Filled Medication Name Start Date Stop Date Current Medication? Ordering Clinician Indication Dosage Frequency Signature (SIG) Comments Components Source Furosemide (LASIX) 20 MG oral Tablet 01-03 15:03: 49 01-03 00:00 :00 No 20mg Take 1 tablet (20 mg total) by mouth every morning. Randee malhotra Cetirizine HCl 10 MG oral Capsule 01-03 00:00: 00 Yes [id number] 10mg QD Take 1 capsule (10 mg total) by mouth daily. Randee malhotra Albuterol HFA 108 (90 Base) MCG/ACT IN AERS 01-03 00:00: 00 Yes [id number] 1{puff} Q.25D Inhale 1 puff into the lungs every 6 hours as needed for wheezing. Randee malhotra Olanzapine 7.5 MG oral Tablet 12-20 00:00: 00 Yes TAKE 1 TABLET BY MOUTH AT BEDTIME FOR MOOD/RACIN G THOUGHT Randee malhotra Bupropion HCL XL 150 MG OR TB24 09 00:00: 00 Yes 150mg Take 1 tablet (150 mg total) by mouth every morning. Randee malhotra Furosemide (LASIX) 20 MG oral Tablet 11-13 11:16: 21 Yes 20mg Take 1 tablet (20 mg total) by mouth every morning. Randee malhotra Gabapentin 600 MG oral Tablet 11-09 00:00: 00 Yes [id number] 600mg Q.25D Take 1 tablet (600 mg total) by mouth 4 times daily. Randee malhotra Lorazepam 1 MG oral Tablet 11-06 00:00: 00 Yes 1mg QD Take 1 tablet (1 mg total) by mouth daily as needed for anxiety. Randee malhotra iopamidol (ISOVUE 370-500 mL) injection 100 mL 10-30 04:15: 00 10-30 04:15 :00 No [id number] 100mL 100 mL, Intravenou s, ONCE, 1 dose, On 10/30/23 at 2315, Routine [facility] ketorolac (TORADOL) injection 15 mg 10-30 02:30: 00 10-30 01:49 :00 No 15mg 15 mg, Slow IV Push, ONCE, 1 dose, On 10/30/23 at 2130, Routine [facility] furosemide (LASIX) injection 40 mg 10-30 01:45: 00 10-30 01:37 :00 No 40mg 40 mg, IV Push, ONCE, 1 dose, On 10/30/23 at 2045, ARISTEO [facility] furosemide 20 mg tablet 10-29 00:00: 00 Yes [id number] 20mg Take 1 tablet by mouth every morning. [facility] Albuterol HFA 108 (90 Base) MCG/ACT IN AERS 10-25 00:00: 00 01-03 00:00 :00 No INHALE 1 PUFF BY MOUTH EVERY 4 HOURS NEEDED DYSPNEA Randee malhotra predniSONE (DELTASONE) 20 MG oral tablet 17 00:00: 00 01-03 00:00 :00 No TAKE 2 TABLETS BY MOUTH EVERY DAY FOR 5 DAYS Randee malhotra Gabapentin 600 MG oral Tablet -20 00:00: 00 Yes [id number] 600mg Take 1 tablet (600 mg total) by mouth 4 times daily. Randee malhotra Ibuprofen (MOTRIN) 600 MG oral Tablet 14 00:00: 00 01-03 00:00 :00 No TAKE 1 TABLET BY MOUTH EVERY 8 HOURS NEEDED FOR PAIN. TAKE WITH FOOD AND DRINK PLENTY OF WATER. Randee malhotra Gabapentin 600 MG oral Tablet -16 00:00: 00 09-28 00:00 :00 No [id number] 600mg Take 1 tablet (600 mg total) by mouth 3 times daily No driving or drinking alcohol with medication . Randee malhotra Sertraline HCl 100 MG oral Tablet -11 00:00: 00 Yes [id number] 100mg QD Take 1 tablet (100 mg total) by mouth daily. Randee malhotra Gabapentin 600 MG oral Tablet -11 00:00: 00 Yes [id number] 600mg Take 1 tablet (600 mg total) by mouth 3 times daily No driving or drinking alcohol with medication . Randee malhotra Gabapentin 600 MG oral Tablet 3-13 00:00: 00 07-20 00:00 :00 No [id number] 600mg Take 1 tablet (600 mg total) by mouth 3 times daily. Randee malhotra Sertraline HCl 100 MG oral Tablet 5-04 00:00: 00 Yes [id number] 100mg Take 1 tablet (100 mg total) by mouth daily Randee malhotra Gabapentin 600 MG oral Tablet 5-04 00:00: 00 Yes [id number] 600mg Take 1 tablet (600 mg total) by mouth 3 times daily Randee iVllatoro - Deva roscoe Gabapentin 600 MG oral Tablet 4-04 00:00: 00 Yes [id number] 600mg Take 1 tablet (600 mg total) by mouth 2 times daily Randee Villatoro - Externa roscoe Sertraline HCl 50 MG oral Tablet 07-13 00:00: 00 Yes [id number] 50mg Take 1 tablet (50 mg total) [...] FOR PAIN 1-05 00:00: 00 Yes Delonte Oli Rowe HYDROcodone -Acetaminop hen (NORCO) 5-325 MG oral Tablet -05 00:00: 00 07-13 00:00 :00 No 1{tbl} Q.25D Take 1 tablet by mouth every 6 hours as needed FOR PAIN Randee malhotra Dose Unknown - 00:00: 00 Yes Delonte Rowe TAKE 1 CAPSULE AT BEDTIME. 11-02 00:00: 00 Yes Delonte Rowe Dose [...] 30 DAYS 11-02 00:00: 00 No 100 acetaminoph en-codeine (TYLENOL-CO DEINE #3) 300-30 mg tablet 08-27 00:00: 00 Yes [id number] 9108 1{tbl} Take 1 tablet by mouth every 4 (four) hours as needed for Pain (scale 1-3). [facility] cyclobenzap rine 5 mg tablet 11-21 00:00: 00 Yes 5mg Take 1 tablet by mouth 3 (three) times daily. [facility] ibuprofen 600 mg tablet 11-21 00:00: 00 Yes 600mg Take 1 tablet by mouth every 8 (eight) hours as needed for Pain (scale 4-6). [facility] ibuprofen (MOTRIN) 800 mg tablet 08-11 08:21: 38 Yes 800mg Take 800 mg by mouth every 6 (six) hours as needed. [facility] Vital Signs Vital Name Observation Time Observation Value Comments S ource Systolic blood pressure 2024-01-04 19:55:00 134 mm[Hg] Randee López ld - External Diastolic blood pressure 2024-01-04 19:55:00 78 mm[Hg] Randee López ld - External Heart rate 2024-01-04 19:55:00 88 /min Kelse teri Villatoro - External Body temperature 2024-01-04 19:55:00 36.61 Shreya Randeewilbert Villatoro - External Respiratory rate 2024-01-04 19:55:00 18 /min Randee Villatoro - External Body height 2024-01-04 19:55:00 177.8 cm Cherryjusten watts Seybold - External Body weight 2024-01-04 19:55:00 111.131 kg Cherry ey Seybold - External BMI 2024-01-04 19:55:00 35.15 kg/m2 Cherry mac Seybold - External Oxygen saturation in Arterial blood by Pulse oximetry 2024-01-04 19:55:00 98 /min Randee Quinno ld - External Systolic blood pressure 2023-11-14 16:05:00 138 mm[Hg] Randee Quinno ld - External Diastolic blood pressure 2023-11-14 16:05:00 82 mm[Hg] Randee Naqviybo ld - External Heart rate 2023-11-14 16:05:00 98 /min Gisela williamson Seybold - External Body temperature 2023-11-14 16:05:00 36.89 Shreya Randee Naqviybold - External Respiratory rate 2023-11-14 16:05:00 20 /min Randee Naqviybold - External Body height 2023-11-14 16:05:00 177.8 cm Cherry watts Seybold - External Body weight 2023-11-14 16:05:00 103.874 kg Cherry watts Seybold - External BMI 2023-11-14 16:05:00 32.86 kg/m2 Cherryjusten watts Seybold - External Oxygen saturation in Arterial blood by Pulse oximetry 2023-11-14 16:05:00 98 /min Randee Quinno ld - External Systolic blood pressure 2023-10-31 04:00:00 123 mm[Hg] [facility] Diastolic blood pressure 2023-10-31 04:00:00 63 mm[Hg] [facility] Heart rate 2023-10-31 04:00:00 80 /min [facility] 2023-10-31 04:00:00 37.06 Shreya [facility] Respiratory rate 2023-10-31 04:00:00 10 /min [facility] Oxygen saturation in Arterial blood by Pulse oximetry 2023-10-31 04:00:00 98 /min [facility] Body weight 2023-10-31 01:05:00 114.306 kg [facility] BMI 2023-10-31 01:05:00 35.15 kg/m2 [facility] Body height 2023-10-31 00:46:00 180.3 cm [facility] Systolic blood pressure 2023-07-21 15:41:00 138 mm[Hg] Randee Seybo ld - External Diastolic blood pressure 2023-07-21 15:41:00 84 mm[Hg] Randee Seybo ld - External Heart rate 2023-07-21 15:41:00 84 /min Kelse y Seybold - External Body temperature 2023-07-21 [...] Pulse oximetry 2023-07-21 15:41:00 98 /min Randee Seybo ld - External Systolic blood pressure 2022-08-12 [...] External Heart rate 2022-07-13 14:49:00 102 /min Gisela williamson Seybold - External Body temperature 2022-07-13 14:49:00 36.89 Shreya Randee Naqviybold - External Respiratory rate 2022-07-13 14:49:00 14 /min Randee Quinnold - External Body height 2022-07-13 14:49:00 177.8 cm Cherry watts Seybold - External Body weight 2022-07-13 14:49:00 87.998 kg Cherry watts Seybold - External BMI 2022-07-13 14:49:00 27.84 kg/m2 Cherry watts Seybold - External Oxygen saturation in Arterial blood by Pulse oximetry 2022-07-13 14:49:00 98 /min Randee Quinno ld - External Heart Rate 2023-09-27 15:44:00 [...] Weight Measured 2021-12-18 13:27:00 199.00 pounds Delonte Rowe Height Measured 2021-12-18 13:27:00 71.00 inches Delonte Rowe Body Temperature 2021-12-18 13:27:00 98.20 degrees Delonte Rowe Heart Rate 2021-12-18 13:27:00 79.00 /min Esmer en F Jae Respiratory Rate 2021-12-18 13:27:00 18.00 /min Delonte Rowe BP Systolic 2021-11-02 08:21:00 138 mm[Hg] Step hen F Jae BP Diastolic 2021-11-02 08:21:00 78 mm[Hg] Anthony phen F Jae Weight Measured 2021-11-02 08:21:00 198.00 pounds Delonte Rowe Height Measured 2021-11-02 08:21:00 71.00 inches Delonte Rowe Body Temperature 2021-11-02 08:21:00 98.20 degrees Delonte Rowe Heart Rate 2021-11-02 08:21:00 75.00 /min Esmer en F Jae Respiratory Rate 2021-11-02 08:21:00 18.00 /min Delonte Rowe Procedures Procedure Date / Time Performed Performing Clinician Source CT ABDOMEN PELVIS W CONTRAST 2023-10-31 03:17:31 Singer [facility] URINE DRUG (IMMUNOASSAY) - COMPREHENSIVE DRUG SCREEN 2023-10-31 03:08:00 Singer [facility] TROPONIN I 2023-10-31 01:03:00 [facility] COMP. METABOLIC PANEL (26067) 2023-10-31 01:03:00 Singer [facility] ETHANOL 2023-10-31 01:03:00 [facility] CBC WITH DIFF 2023-10-31 01:03:00 Singer Sukhdeep [facility] URINALYSIS 2023-10-31 01:03:00 Singer [facility]deep [facility] INFLUENZA A/B RSV COVID NAAT 2023-10-31 01:03:00 [facility] N-TERMINAL PRO-BNP 2023-10-31 01:03:00 Sukhdeep Hooks [facility] Plan of Care Planned Activity Planned Date Details Comments Source Goal Plan of Care Note [code = 40582-1] Goal Plan of Care Note [code = 81811-1] Goal Plan of Care Note [code = 62654-2] Goal Plan of Care Note [code = 83056-5] Goal Plan of Care Note [code = 46558-8] Goal Plan of Care Note [code = 35748-6] Goal Plan of Care Note [code = 61981-4] Goal Plan of Care Note [code = 50449-8] Goal Plan of Care Note [code = 49439-3] Goal Plan of Care Note [code = 56201-7] Goal Plan of Care Note [code = 37551-6] Goal Plan of Care Note [code = 79269-9] Goal Plan of Care Note [code = 85462-8] Goal Plan of Care Note [code = 09453-2] Goal Plan of Care Note [code = 13085-9] Goal Plan of Care Note [code = 67248-8] Goal Plan of Care Note [code = 12874-9] Goal Plan of Care Note [code = 34284-5] Goal Plan of Care Note [code = 57492-6] Goal Plan of Care Note [code = 95557-4] Goal Plan of Care Note [code = 69875-8] Goal Plan of Care Note [code = 79918-0] Goal Plan of Care Note [code = 43693-3] Goal Plan of Care Note [code = 65037-5] Goal Plan of Care Note [code = 45883-2] Goal Plan of Care Note [code = 46751-5] Goal Plan of Care Note [code = 67554-8] Goal Plan of Care Note [code = 08377-2] Encounters Start Date/Time End Date/Time Encounter Type Admission Type Attending [facility] Facility Care Department Encounter ID Source 2024-01-12 00:00:00 2024-01-12 00:00:00 Outpatient RENETTA MONTEJO [id number] Randee Villatoro 2024-01-12 00:00:00 2024-01-12 00:00:00 Outpatient RENETTA MONTEJO [id number] Randee Villatoro 2024-01-09 00:00:00 2024-01-09 00:00:00 Outpatient RENETTA MONTEJO [id number] Rand[facility] 2024-01-04 15:00:00 2024-01-04 15:00:00 Outpatient RENETTA MONTEJO [id number] Randee [facility] 2023-12-15 10:00:00 2023-12-15 10:00:00 Outpatient RENETTA MONTEJO [id number] Randee [facility] 2023-11-14 11:30:00 2023-11-14 11:30:00 Outpatient RENETTA MONTEJO [id number] Randee [facility] 2023-11-14 00:00:00 2023-11-14 00:00:00 Outpatient RANDEE LIRIANO [id number] Randee [facility] 2023-11-14 00:00:00 2023-11-14 00:00:00 [facility] [id number] [facility]23-[facility]10 00:00:00 2023-11-10 00:00:00 Outpatient RENETTA MONTEJO [id number] [facility] 2023-11-09 00:00:00 2023-11-09 10:47:00 Letter (Out) Ca, Sree Provider [facility] [id number] [facility] 2023-11-03 11:15:00 2023-11-03 11:15:00 Outpatient SORENSAM RANDEE LIRIANO [id number] Randee [facility] 2023-11-03 00:00:00 2023-11-03 00:00:00 Outpatient SOREN SAM RANDEE LIRIANO [id number] Rand[facility] 2023-11-03 00:00:00 2023-11-03 00:00:00 Outpatient RENETTA MONTEJO RANDEE [id number] [facility] 2023-10-30 19:51:00 2023-10-31 00:01:00 Emergency SUKHDEEP CURTIS PHILLIP [facility] [id number] [facility] 2023-10-30 19:51:00 2023-10-31 00:01:00 Emergency Sukhdeep Hooks [facility] [id number] [facility] 2023-10-20 00:00:00 2023-10-20 00:00:00 Outpatient RENETTA MONTEJO RANDEE LIRIANO [id number] Rand[facility] 2023-10-06 00:00:00 2023-10-06 00:00:00 Outpatient JILLANIE Rai RANDEE LIRIANO [id number] [facility] 2023-10-06 00:00:00 2023-10-06 00:00:00 Outpatient MARYA MONTEJOTHIA RANDEE LIRIANO [id number] Rand[facility] 2023-09-29 14:30:00 2023-09-29 14:30:00 Outpatient RENETTA MONTEJO RANDEE LIRIANO [id number] [facility] 2023-09-27 16:44:17 2023-09-27 16:44:17 Outpatient SFA SFA [id number] Delonte Baird Jae 2023-09-27 00:00:00 2023-09-27 00:00:00 Outpatient Visit SFA [id number] Delonte Baird Jae 2023-09-13 00:00:00 2023-09-13 00:00:00 Outpatient RENETTA MONTEJO RANDEE LIRIANO [id number] [facility] 2023-08-25 00:00:00 2023-08-25 00:00:00 Outpatient MARYA MONTEJOTHIA RANDEE LIRIANO [id number] [facility] 2023-07-28 00:00:00 2023-07-28 00:00:00 Outpatient MARYA MONTEJOTHIA RANDEE LIRIANO [id number] [facility] 2023-07-21 11:00:00 2023-07-21 11:00:00 Outpatient RENETTA MONTEJO RANDEE LIRIANO [id number] [facility] 2023-07-21 00:00:00 2023-07-21 00:00:00 Outpatient PREZAS, RACHEL RANDEE RANDEE [id number] [facility] 2023-06-22 00:00:00 2023-06-22 00:00:00 Outpatient PREZAS, RACHEL RANDEE LIRIANO [id number] [facility] 2023-04-05 00:00:00 2023-04-05 00:00:00 Outpatient PREZAS, RACHEL RANDEE LIRIANO [id number] [facility] 2023-03-28 00:00:00 2023-03-28 00:00:00 Outpatient PREZAS, RACHEL [facility]ANDEE LIRIANO [id number] [facility]23-02-25 00:00:00 2023-02-25 00:00:00 Outpatient PREZAS, RACHEL RANDEE LIRIANO [id number] [facility] 2022-09-13 00:00:00 2022-09-13 00:00:00 Outpatient PREZAS, RACHEL RANDEE LIRIANO [id number] [facility] 2022-08-26 00:00:00 2022-08-26 00:00:00 Outpatient PREZAS, RACHEL RANDEE LIRIANO [id number] [facility] 2022-08-13 00:00:00 2022-08-13 00:00:00 Outpatient PREZAS, RACHEL RANDEE LIRIANO [id number] [facility] 2022-08-12 09:00:00 2022-08-12 09:00:00 Outpatient SARANYARamiro LIRIANO [id number] Randee [facility] 2022-08-12 08:15:00 2022-08-12 08:15:00 Outpatient PREZAS, RACHEL RANDEE LIRIANO [id number] [facility] 2022-07-22 00:00:00 2022-07-22 00:00:00 Outpatient PREZAS, RACHEL RANDEE LIRIANO [id number] [facility] 2022-07-21 00:00:00 2022-07-21 00:00:00 Outpatient RACHEL MOSS [id number] Randee Villatoro 2022-07-13 11:00:00 2022-07-13 11:00:00 Outpatient RACHEL MOSS [id number] Randee Villatoro 2022-07-01 10:00:00 2022-07-01 10:00:00 Outpatient LISS LORA [id number] Randee Villatoro 2022-02-15 15:01:23 2022-02-15 15:01:[address] [facility] [id number] Delonte Rowe 2022-01-04 00:00:00 2022-01-04 00:00:00 Outpatient Visit [id number] 2021-12-18 00:00:00 2021-12-18 00:00:00 Outpatient Visit [id number] [id number] 00:00:00 2021-11-26 00:00:00 Outpatient Visit [id number] 2021-11-02 00:00:00 2021-11-02 00:00:00 Outpatient Visit [id number] Results Test Description Test Time Test Comments [...] prominent at L4-L5. Soft tissues are grosslyunremarkable. [id number] 01:46:16* Test Item Value Reference Range Interpretation Comme [facility] NT-proBNP (test code = 63357-8) <=125 Lab Interpretation (test cod e = 54489-1) Normal [facility] [id number] 01:41:04* Test Item Value Reference Range Interpretation Comme nts TROPONIN I (test code = 8769349176) <=0.034 WILBUR (test code = WILBUR) Reference [...] of biotin. Lab Interpretation (test code = 26516-0) Normal [facility]. Metabolic Panel (14831)2023-10-31 01:29:25* Test Item Value Reference Range Interpretation Comme nts NA (test code = 2496653672) 140 mmol/L 135-145 K (test code = 7816441382) 4.0 mmol/L 3.5-5.0 CL (test code = 5544582900) 108 mmol/L 98-108 CO2 TOTAL (test code = 7048601829) 24 mmol/L 23-31 AGAP (test code = 5286861982) 8 2-16 BUN (test code = 1596370568) 6 mg/dL 7-23 L GLUCOSE (test code = 1515111995) 106 mg/dL 70-110 CREATININE (test code = 2160-0) 1.00 mg/dL 0.60-1.25 TOTAL BILI (test code = 5840710684) 0.3 mg/dL 0.1-1.1 CALCIUM (test code = 0897959311) 8.1 mg/dL 8.6-10.6 L T PROTEIN (test code = 5426911632) 6.7 g/dL 6.3-8.2 ALBUMIN (test code = 9155242666) 3.9 g/dL 3.5-5.0 ALK PHOS (test code = 7837722180) 108 U/L 34-122 ALTv (test code = 1742-6) 24 U/L 5-50 AST(SGOT) (test code = 1012895758) 27 U/L 13-40 eGFR (test code = 85952-7) 95.8 mL/min/1.73m2 CKD-EPI eGFR (2020). Assuming creatinine has been stable day-to-day for at least three months, the eGFR indicates Category G1 (>= 90 mL/min/1.73 m2) Lab Interpretation (test code = 54948-5) Abnormal [facility] [id number] 01:14:23* Test Item Value Reference Range Interpretation [...] 34.1 g/dL 31.2-35.0 RDW-SD (test code = 93164-3) 43.6 fL 38.5-51.6 RDW-CV (test code = 788-0) 13.2 % 12.1-15.4 PLT (test code = 777-3) 275 150-328 MPV (test code = 08467-6) 9.4 fL 9.8-13.0 L NRBC/100 WBC (test code = 9134953199) 0.0 0.0-10.0 NRBC x10^3 (test code = 9178574115) See_Comment [Automated messa ge] The system which generated this result transmitted reference range: 10*3/?L. The reference range was not used to interpret this result as normal/abnormal. GRAN MAT (NEUT) % (test code = 770-8) 56.7 % IMM GRAN % (test code = 9467330804) 0.30 % LYMPH % (test code = 736-9) 28.4 % MONO % (test code = 5905-5) 8.7 % EOS % (test code = 713-8) 5.6 % BASO % (test code = 706-2) 0.3 % GRAN MAT x10^3(ANC) (test code = 1993083112) 4.12 10*3/uL 1.99-6.95 IMM GRAN x10^3 (test code = 4019612472) 0.00-0.06 LYMPH x10^3 (test code = 731-0) 2.06 10*3/uL 1.09-3.23 MONO x10^3 (test code = 742-7) 0.63 10*3/uL 0.36-1.02 EOS x10^3 (test code = 711-2) 0.41 10*3/uL 0.06-0.53 BASO x10^3 (test code = 704-7) 0.01-0.09 Lab Interpretation (test code = 62681-5) Abnormal [facility] [id number] 04:53:13* Test Item Value Reference Range Interpretation Comme nts GLUCOSE (test code = 2217) 94 MG/DL 70-99 BUN (test code = 2207) 12 MG/DL 6-20 CREATININE (test code = 221) 0.94 MG/DL 0.80-1.40 eGFR (2020 CKD-EPI) (test code = 37420) 104 ML/MIN/1.73 >60 CALC BUN/CREAT (test code = 2235) 13 RATIO 6-28 SODIUM (test code = 223) 141 MEQ/L 133-146 POTASSIUM (test code = 2228) 4.2 MEQ/L 3.5-5.4 CHLORIDE (test code = 2215) 102 MEQ/L 95-107 CARBON DIOXIDE (test code = 2206) 27 MEQ/L 19-31 CALCIUM (test code = 220) 9.4 MG/DL 8.5-10.5 PROTEIN, TOTAL (test code = 222) 7.1 G/DL 6.1-8.3 ALBUMIN (test code = 220) 4.4 G/DL 3.5-5.2 CALC GLOBULIN (test code = 2240) 2.7 G/DL 1.9-3.7 CALC A/G RATIO (test code = 2234) 1.6 RATIO 1.0-2.6 BILIRUBIN, TOTAL (test code = 220) 0.4 MG/DL <=1.2 ALKALINE PHOSPHATASE (test code = 220) 133 U/L 40-119 H AST (test code = 2218) 21 U/L 9-50 ALT (test code = 2219) 20 U/L 5-50 UNLESS OTHERWISE INDICATED, ALL TESTING PERFORMED AT [facility] [address] [place], [place] [id number] IMAGING ANALYST: DALLAS CALLES M.D. CLIA NUMBER [id number] [facility] [place]. [id number] CBC W/AUTO DIFF WITH [id number] 03:21:57* Test Item Value Reference Range Interpretation [...] = 1065) 0.0 /100 WBC'S See_Comment [Automated [employer]umping [employer] ge] The system which generated this result [...] 0.00-0.10 ABS NUCLEATED RBCS (test code = 25856) 0.00 K/UL 0.00-0.11 Notes Date/Time Note Provider Source 2024-01-04 15:04:12 Chief Complaint Patient presents with Follow-up Has congestion and runny nose and sore throat since yesterday. Hurt left side at work Anna Valencia LVN [facility] 2023-11-14 11:16:26 Chief Complaint Patient presents with ER F/U ER follow up for chest and stomach pain. .Anna Valencia LVN [facility] 2023-10-30 23:56:24 Pt given printed and verbal [...] to drive him home. Griselda Pierre RN [facility] 2023-10-30 19:39:09 Pt arrives ambulatory to ED c/o abdominal swelling, SOB, a raspy voice & swelling of hands. Pt states this has been going on for about a week. He says he went to [facility] about a week ago when it started and was told nothing was wrong, but he says the symptoms are not improving and he feels like it is worse. Pt states he take gabapentin 600mg 4x a day but reports at times he takes more when he has more pain. Sabrina Clement RN [facility]24-[facility]-11 10:45:01 Chief Complaint Patient presents with REFILLS-NURSE/MD Mary Jo Han LVN T [facility]
[2024-01-29 11:28] LABS: Absolute Lymphocytes (CBC) 0.7 K/uL (0.7-4.9); Absolute Monocytes 0.5 K/uL (0.1-1.3); Absolute Neutrophil 6.2 K/uL (1.8-8.0); Basophils % 0.6 % (0-1.3); Eosinophils % 0.4 % (0-4.4); Hematocrit 41.3 % (39.6-49.0); Hemoglobin 13.6 g/dL (13.6-17.9); Lymphocytes % 9.7 % (15.3-44.8); MCH 29.5 pg (27.0-35.0); MCHC 32.9 g/dL (32.0-36.0); MCV 89.7 fL (80-100); MPV 7.4 fL (7.6-11.3); Monocytes % 6.7 % (3.3-12.3); Neutrophils % 82.6 % (41.7-73.7); Platelets 345 thou/uL (152-406)
[2024-01-29] MEDS ORDERED: NA CHLORIDE 0.9% 1,000 ML ONE (11:28)
[2024-01-29] MEDS ORDERED: ONDANSETRON 4 MG/2 ML VIAL ONE (11:28)
[2024-01-29] MEDS ORDERED: FAMOTIDINE 20 MG/2 ML VIAL IV ONE (11:28)
[2024-01-29 11:45] LABS: Albumin 3.2 g/dL (3.4-5.0); Albumin/Globulin Ratio 0.8 (1.1-1.8); Anion Gap 9.9 mEq/L (5.0-15.0); Bilirubin Total 0.4 mg/dL (0.2-1.0); Globulin 3.9 g/dL (2.3-3.5); Potassium 3.9 mEq/L (3.5-5.1); Protein, Total 7.1 g/dL (6.4-8.2)
[2024-01-29 11:51] LABS: SARS-CoV-2 Antigen CONTROL BLUE LINE VIS/BG OK; SARS-CoV-2 Antigen Rapid Res Negative (Negative)
--- NOTE | 2024-01-29 12:21 | RAD REPORT ---
EXAMINATION: CT ABDOMEN AND PELVIS WITH CONTRAST CLINICAL INDICATION: Male, 43 years old.ABD PAIN TECHNIQUE: CT abdomen and pelvis was performed, after the administration of IV contrast, as per [facility]. Axial, sagittal and coronal reconstructions were obtained. One or more of the following dose reduction techniques were used: Automated exposure control, adjustment of the mA and/o r kV according to patient size, and/or iterative reconstruction. Unless otherwise specified, incidental findings do not require dedicated imaging follow-up. [id number]. COMPARISON: No prior exam. FINDINGS: LOWER CHEST: The visualized lung bases are clear. Small fat-containing umbilical hernia. Hepatic stea tosis LIVER: Normal in size and contour. No focal lesion. Question hepatic steatosis. GALLBLADDER/BILE DUCT: No biliary ductal dilatation.? PANCREAS: No significant abnormality. SPLEEN: Normal size. No focal lesion. ADRENALS: Normal; no mass. KIDNEYS AND URETERS: Normal size and contour. No hydronephrosis. GASTROINTESTINAL TRACT: Stomach is non-dilated. Small bowel has normal course and caliber. No colonic wall thickening or pericolonic inflammatory changes. Normal appendix. PERITONEUM: No ascites. LYMPH NODES: No lymphadenopathy. ABDOMINAL AORTA AND OTHER VESSELS: Normal caliber aorta and IVC. URINARY BLADDER: Normal contour. REPRODUCTIVE ORGANS: No pathologic process MUSCULOSKELETAL: No acute or suspicious osseous abnormality. Grade 1 anterolisthesis of L5 on S1. Par s defects present. ADDITIONAL FINDINGS: None. IMPRESSION: No acute or significant abnormalities seen in the abdomen or pelvis. Normal appendix.
[2024-01-29] MEDS ORDERED: FENTANYL CITR 100 MCG/2 ML ONE (13:02)
--- NOTE | 2024-01-29 13:30 | EDPHYS ---
Physician Documentation [facility] Name: Ameya Muniz Age: 43 yrs Sex: Male : 1980 Arrival Date: 01/29/2024 Time: 10:34 Bed 17 Private MD: ED Physician Hammad Ivey HPI: 01/28 11:02 This 43 yrs old Male presents to ER via Ambulatory with complaints of sb4 Vomiting/Diarrhea, Fever. 11:02 The patient presents to the emergency department with nausea, vomiting, diarrhea, sb4 abdominal pain. Onset: The symptoms/episode began/occurred yesterday. Possible causes: unknown. The symptoms are aggravated by food , The symptoms are alleviated by nothing. Associated signs and symptoms: Pertinent positives: diarrhea, fever, nausea, vomiting. The patient has not experienced similar symptoms in the past. The patient has not recently seen a physician. Historical: - Allergies: 10:47 Naproxen; ll1 10:47 tramadol; ll1 - PMHx: 10:47 back problems; nerve pain (back problems); ll1 - Immunization history:: Adult Immunizations up to date. - Infectious Disease History:: Denies. - Social history:: Smoking status: unknown. ROS: 11:02 Cardiovascular: Negative for chest pain, palpitations, and edema, sb4 11:02 Constitutional: Positive for body aches, chills, fever, malaise, 11:02 Abdomen/GI: Positive for abdominal pain, nausea, vomiting, and diarrhea, 11:02 All other systems are negative, Exam: 11:02 Constitutional: This is a well developed, well nourished patient who is awake, alert, sb4 and in no acute distress. Head/Face: Normocephalic, atraumatic. Eyes: Extra-ocular motions intact. Periorbital areas with no swelling, redness, or edema. ENT: Mucous membranes moist. Cardiovascular: Regular rate and rhythm with a normal S1 and S2. Respiratory: No increased work of breathing, no retractions or nasal flaring. Abdomen/GI: Soft, non-tender, no distension. Skin: Warm, dry with normal turgor. Normal color with no rashes, no lesions, and no evidence of cellulitis. Vital Signs: 10:49 BP 135 / 85; Pulse 82; Resp 18; Temp 97; Pulse Ox 98% ; Weight 102.06 kg; Height 5 ft. ll1 10 in. ; Pain 10/10; 11:34 BP 134 / 99; Pulse 74; Pulse Ox 98% on R/A; MAP 70 mmHg; tm6 13:07 BP 126 / 90; Pulse 81; Pulse Ox 97% on R/A; MAP 97 mmHg; Pain 7/10; tm6 13:34 BP 154 / 98; Pulse 82; Resp 19; Temp 97; Pulse Ox 97% on R/A; MAP 112 mmHg; Pain 0/10; tm6 10:49 Body Mass Index 32.28 (102.06 kg, 177.8 cm) ll1 10:49 Pain Scale: Adult ll1 13:07 Pain Scale: Adult tm6 13:34 Pain Scale: Adult tm6 MDM: 10:56 Medical Screening Exam initiated sb4 13:33 Data reviewed: vital signs, nurses notes, lab test result(s), radiologic studies, and sb4 as a result, I will discharge patient. Counseling: I had a detailed discussion with the patient and/or guardian regarding the historical points, exam findings, and any diagnostic results supporting the discharge/admit diagnosis, lab results, radiology results, the need for outpatient follow up, for definitive care, to return to the emergency department if symptoms worsen or persist or if there are any questions or concerns that arise at home. ED course: patient states he has an emergency and has to leave before all imaging can be completed. he will return for any new or worsening symptoms. 01/28 11:01 Order name: CBC with Diff; Complete Time: 11:29 sb4 01/28 11:01 Order name: CMP; Complete Time: 11:46 sb4 01/28 11:01 Order name: Lipase; Complete Time: 11:46 sb4 01/28 11:01 Order name: SARS RAPID; Complete Time: 11:54 sb4 01/28 11:01 Order name: Flu; Complete Time: 12:08 sb4 01/28 11:01 Order name: CT Abd/Pelvis - IV Contrast Only; Complete Time: 12:22 sb4 01/28 11:01 Order name: IV Saline Lock; Complete Time: 11:26 sb4 01/28 11:01 Order name: Labs collected and sent; Complete Time: 11:26 sb4 01/28 12:22 Order name: PO challenge; Complete Time: 13:06 sb4 Administered Medications: 11:34 Drug: Famotidine IVP 20 mg IVP once; dilute with 10 mL 0.9% NaCl; give over 2 minutes tm6 Route: IVP; Site: left antecubital; 13:06 Follow up: Response: No adverse reaction tm6 11:34 Drug: Ondansetron IVP 4 mg IVP once; over 2 minutes Route: IVP; Site: left antecubital; tm6 13:07 Follow up: Response: No adverse reaction tm6 11:34 Drug: NS 0.9% IV 1000 ml IV at 1 bolus Per protocol; to be given as a bolus over 60 tm6 minutes Route: IV; Rate: 1 bolus; Site: left antecubital; 13:07 Follow up: Response: No adverse reaction; IV Status: Completed infusion; IV Intake: tm6 1000ml 13:06 Drug: fentaNYL (PF) IVP 50 mcg IVP once Route: IVP; Site: left antecubital; tm6 13:35 Follow up: Response: No adverse reaction; Pain is decreased tm6 Disposition Summary: 01/29/24 13:29 Discharge Ordered Notes: Location: Home sb4 Problem: new sb4 Symptoms: have improved sb4 Condition: Stable sb4 Diagnosis - Abdominal pain, Generalized sb4 - Nausea with vomiting, unspecified sb4 Followup: sb4 - With: Emergency Department - When: As needed - Reason: Trouble breathing, Worsening of condition Discharge Instructions: - Discharge Summary Sheet sb4 - Viral Gastroenteritis, Adult, [id number] sb4 Forms: - Patient Portal Instructions sb4 - Leadership Thank You Letter sb4 Prescriptions: - Zofran 4 mg Oral Tablet - take 1 tablet ORAL route every 12 hours As needed; 20 tablet; Refills: 0, sb4 Product Selection Permitted - dicyclomine 10 mg Oral capsule - take 1 capsule ORAL route 3 times per day As needed; 20 capsule; Refills: 0, sb4 Product Selection Permitted Signatures: Dispatcher [employer] EDAlfredo Wolf, RN RN ll1 Tammy Clemons PAMarques PAMarques sb4 Devin Zacarias RN RN tm6 Corrections: (The following items were deleted from the chart) 11:02 11:01 Abdomen Pelvis W Con+CT.RAD.BRZ ordered. EDMS EDMS
--- NOTE | 2024-01-29 13:30 | ER ---
Nurse's Notes [facility] Name: Ameya Muniz Age: 43 yrs Sex: Male : 1980 Arrival Date: 01/29/2024 Time: 10:34 Bed 17 Private MD: Diagnosis: Abdominal pain, Generalized;Nausea with vomiting, unspecified Presentation: 01/28 10:49 Chief complaint: Patient states: Abd pain with N/V/D since Tuesday. Coronavirus screen: ll1 Client denies travel out of the [place] in the last 14 days. At this time, the client does not indicate any symptoms associated with coronavirus-19. Ebola Screen: Patient denies travel to an Ebola-affected area in the 21 days before illness onset. Initial Sepsis Screen: Does the patient meet any 2 criteria? No. Patient's initial sepsis screen is negative. Does the patient have a suspected source of infection? No. Patient's initial sepsis screen is negative. Risk Assessment: Do you want to hurt yourself or someone else? Patient reports no desire to harm self or others. Onset of symptoms was January 27, 2024. 10:49 Method Of Arrival: Ambulatory ll1 10:49 Acuity: AVIVA 3 ll1 Triage Assessment: 10:49 General: Appears uncomfortable, Behavior is calm, cooperative, appropriate for age, ll1 Reports fever for feeling ill for fatigue for. Neuro: No deficits noted. GI: Reports cramping, diarrhea, nausea, vomiting. Historical: - Allergies: 10:47 Naproxen; ll1 10:47 tramadol; ll1 - PMHx: 10:47 back problems; nerve pain (back problems); ll1 - Immunization history:: Adult Immunizations up to date. - Infectious Disease History:: Denies. - Social history:: Smoking status: unknown. Screenin:34 [facility] ED Fall Risk Assessment (Adult) History of falling in the last 3 months, tm6 including since admission No falls in past 3 months (0 pts) Confusion or Disorientation No (0 pts) Intoxicated or Sedated No (0 pts) Impaired Gait No (0 pts) Mobility Assist Device Used No (0 pt) Altered Elimination No (0 pt) Score/Fall Risk Level 0 - 2 = Low Risk Oriented to surroundings, Maintained a safe environment, Educated pt \T\ family on fall prevention, incl call for assistance when getting out of bed. Abuse screen: Denies threats or abuse. Denies injuries from another. Nutritional screening: No deficits noted. Tuberculosis screening: No symptoms or risk factors identified. Assessment: 11:34 General: Appears in no apparent distress. Behavior is calm, cooperative. Pain: Denies tm6 pain. Neuro: Level of Consciousness is awake, alert, obeys commands, Oriented to person, place, time, situation. Cardiovascular: Patient's skin is warm and dry. Respiratory: Airway is patent Respiratory effort is even, unlabored, Respiratory pattern is regular, symmetrical. GI: Abdomen is round Reports diarrhea, nausea, vomiting, since Tuesday. : No signs and/or symptoms were reported regarding the genitourinary system. EENT: No signs and/or symptoms were reported regarding the EENT system. Derm: No signs and/or symptoms reported regarding the dermatologic system. Musculoskeletal: No signs and/or symptoms reported regarding the musculoskeletal system. 13:08 Reassessment: Patient and/or family updated on plan of care and expected duration. Pain tm6 level reassessed. Patient is alert, oriented x 3, equal unlabored respirations, skin warm/dry/pink. 13:34 Reassessment: Patient and/or family updated on plan of care and expected duration. Pain tm6 level reassessed. Patient is alert, oriented x 3, equal unlabored respirations, skin warm/dry/pink. Patient states feeling better. Vital Signs: 10:49 BP 135 / 85; Pulse 82; Resp 18; Temp 97; Pulse Ox 98% ; Weight 102.06 kg; Height 5 ft. ll1 10 in. ; Pain 10/10; 11:34 BP 134 / 99; Pulse 74; Pulse Ox 98% on R/A; MAP 70 mmHg; tm6 13:07 BP 126 / 90; Pulse 81; Pulse Ox 97% on R/A; MAP 97 mmHg; Pain 7/10; tm6 13:34 BP 154 / 98; Pulse 82; Resp 19; Temp 97; Pulse Ox 97% on R/A; MAP 112 mmHg; Pain 0/10; tm6 10:49 Body Mass Index 32.28 (102.06 kg, 177.8 cm) ll1 10:49 Pain Scale: Adult ll1 13:07 Pain Scale: Adult tm6 13:34 Pain Scale: Adult tm6 ED Course: 10:36 Patient arrived in ED. mr 10:38 [facility] Clemons [facility]C [facility]. sb4 10:38 Hammad Ivey MD is Attending Physician. sb4 10:47 Arm band placed on Patient placed in an exam room, on a stretcher. ll1 10:50 Triage completed. ll1 11:02 Devin Zacarias, RN is Primary Nurse. tm6 11:26 CBC with Diff Sent. cc6 11:26 CMP Sent. cc6 11:26 Lipase Sent. cc6 11:26 Flu Sent. cc6 11:26 SARS RAPID Sent. cc6 11:26 Initial lab(s) drawn, by me, sent to lab. Inserted saline lock: 20 gauge in left cc6 antecubital area, using aseptic technique. Blood collected. Flushed with 10 mL NS. 11:34 Patient has correct armband on for positive identification. Bed in low position. Call tm6 light in reach. Provided Education on: use of call zuniga. Client placed on continuous cardiac and pulse oximetry monitoring. NIBP monitoring applied. Pulse ox on. NIBP on. Door closed. Noise minimized. Lights dimmed. 12:12 CT Abd/Pelvis - IV Contrast Only In Process Unspecified. EDMS 13:34 No provider procedures requiring assistance completed. IV discontinued, intact, tm6 bleeding controlled, No redness/swelling at site. Pressure dressing applied. Administered Medications: 11:34 Drug: Famotidine IVP 20 mg IVP once; dilute with 10 mL 0.9% NaCl; give over 2 minutes tm6 Route: IVP; Site: left antecubital; 13:06 Follow up: Response: No adverse reaction tm6 11:34 Drug: Ondansetron IVP 4 mg IVP once; over 2 minutes Route: IVP; Site: left antecubital; tm6 13:07 Follow up: Response: No adverse reaction tm6 11:34 Drug: NS 0.9% IV 1000 ml IV at 1 bolus Per protocol; to be given as a bolus over 60 tm6 minutes Route: IV; Rate: 1 bolus; Site: left antecubital; 13:07 Follow up: Response: No adverse reaction; IV Status: Completed infusion; IV Intake: tm6 1000ml 13:06 Drug: fentaNYL (PF) IVP 50 mcg IVP once Route: IVP; Site: left antecubital; tm6 13:35 Follow up: Response: No adverse reaction; Pain is decreased tm6 Medication: 11:34 VIS not applicable for this client. tm6 Intake: 13:07 IV: 1000ml; Total: 1000ml. tm6 Outcome: 13:29 Discharge ordered by . sb4 13:34 Discharged to home ambulatory, with family, tm6 13:34 Condition: stable 13:34 Discharge instructions given to patient, Instructed on discharge instructions, follow up and referral plans. medication usage, Demonstrated understanding of instructions, follow-up care, medications, Prescriptions given X 2, 13:35 Patient left the ED. tm6 Signatures: Dispatcher [employer] EDMS Kasey Carrillo, Reg Reg mr Alfredo Spann, RN RN ll1 Tammy Clemons PA-C PAMarques sb4 Devin Zacarias RN RN tm6 Leesa Penn cc6
== END 2024-01-29 13:35 | disposition home or self-care (01) ==
LOC: ER 10:34
DX: R10.84 Generalized abdominal pain (principal); R11.2 Nausea with vomiting, unspecified; Z11.52 Encounter for screening for COVID-19
CPT/HCPCS: 96361; 85025; 36415; 83690; 80053; 87804 ×2; 74177; 96375; 96374; 99284; 87811; Q9967; J3010; J2405; J7030

== ENCOUNTER 2024-05-10 13:07 | Emergency (ER) | payer OTHER ==
--- OUTSIDE RECORDS SUMMARY | 2024-05-10 13:10 | XMS REPORT | Continuity of Care Document ---
Author Name Unknown Address [address] [facility] [address]. [address] [place] [address] [facility] thconnect Address [address] [facility]. [address] [place] [address] Care Team Providers Care Rn Field Name Role Phone [facility], [facility] Primary Care Physician [phone] RENETTA MONTEJO Attending Clinician Unavailab RACHEL Santos Attending Clinician Unavailable Ca, Sree Provider Attending Clinician Unavailable ASM DOTY Attending Clinician UnaSUKHDEEP Riley Attending Clinician Unavailable SUKHDEEP HOOKS Attending Clinician Unavailable LANIE JOHNSON Attending Clinician Unavailabl e LAB90 Attending Clinician Unavailable LISS LORA Attending Clinician Unavailable SUKHDEEP HOOKS Admitting Clinician Unavailable Payers Payer Name Policy Type Policy Number Effective Date Expirati on Date Source [facility] [employer] [employer] 9 [id number] 2023 00:00:00 [employer] MP [employer] [employer] 94 ON 9 [id number] 2023 00:00:00 Problems Condition Name Condition Details Condition Category Status Onset Date Resolution Date Last Treatment Date Treating Clinician Comments Source Chest pain Chest pain Disease Active 11-13 00:00: 00 Randee malhotra Panic attack Panic attack Disease Active 11-13 00:00: 00 Randee Seybold - Externa l Mild major depression Mild major depression Disease Active 4-11 00:00: 00 Randee Seybold - Externa l Well adult exam Well adult exam Disease Active 5 00:00: 00 Randee Seybold - Externa l Elevated BP without diagnosis of hypertensi on Elevated BP without diagnosis of hypertensi on Disease Active 5- 00:00: 00 Randee Seybold - Externa l Mild major depression Mild major depression Disease Active 5 00:00: 00 Randee Seybold - Externa l [...] NO KNOWN ALLERGIE S Drug Class Active General acute hospital Social History Social Habit Start Date Stop Date Quantity Comments Source Sexual orientation [facility] Gender identity Cherry Villatoro - External [...] - Reported 2023-07-21 00:00:00 2023-07-21 00:00:00 Randee Cardozo External Cigarette pack-years 2023-07-21 00:00:00 2023-07-21 00:00:00 Randee omarimichelle - External Tobacco use and exposure 2023-07-21 00:00:00 2023-07-21 00:00:00 Smokeless tobacco non-user Randee Villatoro - External Alcohol intake 2022-08-12 00:00:00 2022-08-12 00:00:00 Lifetime non-drinker (finding) Randee Villatoro - External Education 2022-07-13 00:00:00 2022-07-13 00:00:00 16 Randee omarimichelle - External Sex 2022-04-29 13:08:32 2022-04-29 13:08:32 Male (finding) Randee Seomarimichelle - External Sex assigned at 1980 00:00:00 1980 00:00:00 [facility] Smoking Status Start Date Stop Date Source Occasional tobacco smoker 2023-07-21 00:00:00 Randee omarimichelle - External Light tobacco smoker 2015-08-12 00:00:00 [...] MG oral Capsule 01-03 00:00: 00 Yes [id number] 10mg QD Take 1 capsule (10 mg total) by mouth daily. Randee malhotra Albuterol HFA 108 (90 Base) MCG/ACT IN AERS 01-03 00:00: 00 Yes [id number] 1{puff} Q.25D Inhale 1 puff into the lungs every 6 hours as needed for wheezing. Randee malhotra Olanzapine 7.5 MG oral Tablet 12-20 00:00: 00 Yes TAKE 1 TABLET BY MOUTH AT BEDTIME FOR MOOD/RACIN G THOUGHT Randee malhotra Bupropion HCL XL 150 MG OR TB24 12-18 00:00: 00 Yes 150mg Take 1 tablet (150 mg total) by mouth every morning. Randee malhotra Furosemide (LASIX) 20 MG oral Tablet 11-13 11:16: 21 Yes 20mg Take 1 tablet (20 mg total) by mouth every morning. Randee malhotra Gabapentin 600 MG oral Tablet 11-09 00:00: 00 Yes [id number] 600mg Q.25D Take 1 tablet (600 mg total) by mouth 4 times daily. Randee malhotra Lorazepam 1 MG oral Tablet 11-06 00:00: 00 Yes 1mg QD Take 1 tablet (1 mg total) by mouth daily as needed for anxiety. Randee malhotra iopamidol (ISOVUE 370-500 mL) injection 100 mL 10-30 04:15: 00 10-30 04:15 :00 No [id number] 100mL 100 mL, Intravenou s, ONCE, 1 dose, On 10/30/23 at 2315, Routine General acute hospital ketorolac (TORADOL) injection 15 mg 10-30 02:30: 00 10-30 01:49 :00 No 15mg 15 mg, Slow IV Push, ONCE, 1 dose, On Tue10/30/23 at 2130, Routine General acute hospital furosemide (LASIX) injection 40 mg 10-30 01:45: 00 10-30 01:37 :00 No 40mg 40 mg, IV Push, ONCE, 1 dose, On 10/30/23 at 2045, ARISTEO General acute hospital furosemide 20 mg tablet 10-29 00:00: 00 Yes [id number] 20mg Take 1 tablet by mouth every morning. General acute hospital Albuterol HFA 108 (90 Base) MCG/ACT IN AERS 10-25 00:00: 00 01-03 00:00 :00 No INHALE 1 PUFF BY MOUTH EVERY 4 HOURS NEEDED DYSPNEA Randee malhotra predniSONE (DELTASONE) 20 MG oral tablet 7-17 00:00: 00 01-03 00:00 :00 No TAKE 2 TABLETS BY MOUTH EVERY DAY FOR 5 DAYS Randee malhotra Gabapentin 600 MG oral Tablet 6-20 00:00: 00 Yes [id number] 600mg Take 1 tablet (600 mg total) by mouth 4 times daily. Randee malhotra Ibuprofen (MOTRIN) 600 MG oral Tablet 6-14 00:00: 00 01-03 00:00 :00 No TAKE 1 TABLET BY MOUTH EVERY 8 HOURS NEEDED FOR PAIN. TAKE WITH FOOD AND DRINK PLENTY OF WATER. Randee malhotra Gabapentin 600 MG oral Tablet 5-16 00:00: 00 09-28 00:00 :00 No [id number] 600mg Take 1 tablet (600 mg total) by mouth 3 times daily No driving or drinking alcohol with medication . Randee malhotra Sertraline HCl 100 MG oral Tablet 4-11 00:00: 00 Yes [id number] 100mg QD Take 1 tablet (100 mg total) by mouth daily. Randee malhotra Gabapentin 600 MG oral Tablet 4-11 00:00: 00 Yes [id number] 600mg Take 1 tablet (600 mg total) by mouth 3 times daily No driving or drinking alcohol with medication . Randee malhotra Gabapentin 600 MG oral Tablet 3-13 00:00: 00 07-20 00:00 :00 No [id number] 600mg Take 1 tablet (600 mg total) by mouth 3 times daily. Randee malhotra Sertraline HCl 100 MG oral Tablet 5-04 00:00: 00 Yes [id number] 100mg Take 1 tablet (100 mg total) by mouth daily Ranede malhotra Gabapentin 600 MG oral Tablet 5-04 00:00: 00 Yes [id number] 600mg Take 1 tablet (600 mg total) by mouth 3 times daily Randee malhotra Gabapentin 600 MG oral Tablet 07-13 00:00: 00 Yes [id number] 600mg Take 1 tablet (600 mg total) by mouth 2 times daily Randee Villatoro - Deva roscoe Sertraline HCl 50 MG oral Tablet 07-13 00:00: 00 Yes [id number] 50mg Take 1 tablet (50 mg total) by mouth daily Randee malhotra Acetaminoph en-Codeine #3 300-30 MG oral Tablet 3- 00:00: 00 07-13 00:00 :00 No 1{tbl} Take 1 tablet by mouth every 4 to 6 hours as needed for pain Randee malhotra Sertraline HCl 50 MG oral Tablet 06-09 00:00: 00 07-13 00:00 :00 No TAKE 1 TABLET BY MOUTH 1 TIME EACH DAY. Randee malhotra Gabapentin 600 MG oral Tablet 1- 00:00: 00 07-13 00:00 :00 No 600mg Take 600 mg by mouth daily Randee malhotra TAKE 1 CAPSULE AT BEDTIME. 1-09 00:00: 00 Yes 300 Delonte Rowe TAKE 1 TABLET BY MOUTH EVERY 6 HOURS NEEDED FOR PAIN - 00:00: 00 Yes Delonte Rowe HYDROcodone -Acetaminop hen (NORCO) 5-325 MG oral Tablet - 00:00: 00 07-13 00:00 :00 No 1{tbl} Q.25D Take 1 tablet by mouth every 6 hours as needed FOR PAIN Randee malhotra Dose Unknown 11-02 00:00: 00 Yes Delonte Rowe Dose Unknown 11-02 00:00: 00 No TAKE 1 CAPSULE AT BEDTIME. 11-02 00:00: 00 No TAKE 1 CAPSULE AT BEDTIME. 11-02 00:00: 00 Yes Delonte Rowe TAKE 1 TABLET TWICE DAILY. 11-02 00:00: [...] 300-30 mg tablet 08-27 00:00: 00 Yes [id number] 1{tbl} Take 1 tablet by mouth every 4 (four) hours as needed for Pain (scale 1-3). General acute hospital cyclobenzap rine 5 mg tablet 11-21 00:00: 00 Yes 5mg Take 1 tablet by mouth 3 (three) times daily. [facility] acute hospital ibuprofen 600 mg tablet 11-21 00:00: 00 Yes 600mg Take 1 tablet by mouth every 8 (eight) hours as needed for Pain (scale 4-6). General acute hospital ibuprofen (MOTRIN) 800 mg tablet 08-11 08:21: 38 Yes 800mg Take 800 mg by mouth every 6 (six) hours as needed. General acute hospital Vital Signs Vital Name Observation Time Observation Value Comments S ource Systolic blood pressure 2024-01-04 19:55:00 134 mm[Hg] Randee barriga - External Diastolic blood pressure 2024-01-04 19:55:00 78 mm[Hg] Randee barriga - External Heart rate 2024-01-04 19:55:00 88 /min Gisela Villatoro - External Body temperature 2024-01-04 19:55:00 36.61 Shreya Randee Villatoro - External Respiratory rate 2024-01-04 19:55:00 18 /min Randee Villatoro - External Body height 2024-01-04 19:55:00 177.8 cm Cherry Villatoro - External Body weight 2024-01-04 19:55:00 111.131 kg Cherry Villatoro - External BMI 2024-01-04 19:55:00 35.15 kg/m2 Cherry Villatoro - External Oxygen saturation in Arterial blood by Pulse oximetry 2024-01-04 19:55:00 98 /min Randee Quinno ld - External Systolic blood pressure 2023-11-14 16:05:00 138 mm[Hg] Randee Quinno ld - External Diastolic blood pressure 2023-11-14 16:05:00 82 mm[Hg] Randee Quinno ld - External Heart rate 2023-11-14 16:05:00 98 /min Gisela williamson Seybold - External Body temperature 2023-11-14 16:05:00 36.89 Shreya Randee Naqviybold - External Respiratory rate 2023-11-14 16:05:00 20 /min Randee Naqviybold - External Body height 2023-11-14 16:05:00 177.8 cm Cherry watts Seybold - External Body weight 2023-11-14 16:05:00 103.874 kg Cherry watts Seybold - External BMI 2023-11-14 16:05:00 32.86 kg/m2 Cherry watts Seybold - External Oxygen saturation in Arterial blood by Pulse oximetry 2023-11-14 16:05:00 98 /min Randee López ld - External Systolic blood pressure 2023-10-31 04:00:00 123 mm[Hg] [facility] Diastolic blood pressure 2023-10-31 04:00:00 63 mm[Hg] [facility] Heart rate 2023-10-31 04:00:00 80 /min [facility] Body temperature 2023-10-31 04:00:00 37.06 Shreya [facility] Respiratory rate 2023-10-31 04:00:00 10 /min [facility] Oxygen saturation in Arterial blood by Pulse oximetry 2023-10-31 04:00:00 98 /min [facility] Body weight 2023-10-31 01:05:00 114.306 kg [facility] BMI 2023-10-31 01:05:00 35.15 kg/m2 [facility] Body height 2023-10-31 00:46:00 180.3 cm [facility] Systolic blood pressure 2023-07-21 15:41:00 [...] Body temperature 2022-07-13 14:49:00 36.89 Shreya Randee iVllatoro - External Respiratory rate 2022-07-13 14:49:00 14 /min Randee Villatoro - External Body height 2022-07-13 14:49:00 177.8 cm Cherry Villatoro - External Body weight 2022-07-13 14:49:00 87.998 kg Cehrry watts Seybold - External BMI 2022-07-13 14:49:00 27.84 kg/m2 Cherry Villatoro - External Oxygen saturation in Arterial blood by Pulse oximetry 2022-07-13 14:49:00 98 /min Randee López ld - External Heart Rate 2023-09-27 15:44:00 [...] Rate 2021-11-02 08:21:00 75.00 /min Esmer en Oli Rowe Respiratory Rate 2021-11-02 08:21:00 18.00 /min Delonte Rowe Procedures Procedure Date / Time Performed Performing Clinician Source CT ABDOMEN PELVIS W CONTRAST 2023-10-31 03:17:31 Singer [facility] URINE DRUG (IMMUNOASSAY) - COMPREHENSIVE DRUG SCREEN 2023-10-31 03:08:00 [facility] TROPONIN I 2023-10-31 01:03:00 [facility] COMP. METABOLIC PANEL (35684) 2023-10-31 01:03:00 Singer [facility] ETHANOL 2023-10-31 01:03:00 [facility] CBC WITH DIFF 2023-10-31 01:03:00 Singer [facility] URINALYSIS 2023-10-31 01:03:00 [facility] INFLUENZA A/B RSV COVID NAAT 2023-10-31 01:03:00 [facility] N-TERMINAL PRO-BNP 2023-10-31 01:03:00 [facility] Plan of Care Planned Activity Planned Date Details Comments Source Goal Plan of Care Note [code = 08111-5] Goal Plan of Care Note [code = 76686-1] Goal Plan of Care Note [code = 00375-3] Goal Plan of Care Note [code = 65160-3] Goal Plan of Care Note [code = 54744-8] Goal Plan of Care Note [code = 02294-5] Goal Plan of Care Note [code = 30813-0] Goal Plan of Care Note [code = 14688-2] Goal Plan of Care Note [code = 19824-0] Goal Plan of Care Note [code = 33276-4] Goal Plan of Care Note [code = 91522-5] Goal Plan of Care Note [code = 57167-9] Goal Plan of Care Note [code = 68698-7] Goal Plan of Care Note [code = 17733-1] Goal Plan of Care Note [code = 08541-7] Goal Plan of Care Note [code = 30294-9] Goal Plan of Care Note [code = 90088-1] Goal Plan of Care Note [code = 37452-5] Goal Plan of Care Note [code = 74968-7] Goal Plan of Care Note [code = 93412-9] Goal Plan of Care Note [code = 67206-0] Goal Plan of Care Note [code = 70226-3] Goal Plan of Care Note [code = 80538-9] Goal Plan of Care Note [code = 25670-9] Goal Plan of Care Note [code = 89977-0] Goal Plan of Care Note [code = 63007-3] Goal Plan of Care Note [code = 88942-0] Goal Plan of Care Note [code = 63269-1] Encounters Start Date/Time End Date/Time Encounter Type Admission Type Attending [facility] Care Facility Care Department Encounter ID Source 2024-05-25 08:30:00 2024-05-25 08:30:00 Outpatient RENETTA MONTEJO [id number] Randee Villatoro 2024-05-11 09:00:00 2024-05-11 09:00:00 Outpatient RENETTA MONTEJO [id number] Randee Villatoro 2024-04-14 00:00:00 2024-04-14 00:00:00 Outpatient RENETTA MONTEJO RANDEE [id number] Randee [facility] 2024-03-22 00:00:00 2024-03-22 00:00:00 Outpatient RENETTA MONTEJO RANDEE [id number] Randee [facility] 2024-03-22 00:00:00 2024-03-22 00:00:00 Outpatient RENETTA MONTEJO RANDEE [id number] Randee [facility] 2024-03-21 00:00:00 2024-03-21 00:00:00 Outpatient RENETTA MONTEJO RANDEE [id number] Randee [facility] 2024-03-16 00:00:00 2024-03-16 00:00:00 Outpatient TOMASRACHEL GILL RANDEE RANDEE [id number] [facility] 2024-03-15 00:00:00 2024-03-15 00:00:00 Outpatient RENETTA MONTEJO RANDEE [id number] [facility] 2024-02-03 00:00:00 2024-02-03 00:00:00 Outpatient RENETTA MONTEJO RANDEE [id number] Randee [facility] 2024-01-12 00:00:00 2024-01-12 00:00:00 Outpatient RENETTA MONTEJO RANDEE [id number] [facility] 2024-01-12 00:00:00 2024-01-12 00:00:00 Outpatient RENETTA MONTEJOVASILIY LIRIANO [id number] Randee [facility] 2024-01-09 00:00:00 2024-01-09 00:00:00 Outpatient RENETTA MONTEJO RANDEE [id number] Randee [facility] 2024-01-04 15:00:00 2024-01-04 15:00:00 Outpatient RENETTA MONTEJO RANDEE [id number] Randee [facility] 2023-12-15 10:00:00 2023-12-15 10:00:00 Outpatient RENETTA MONTEJOVASILIY LIRIANO [id number] Randee [facility] 2023-11-14 11:30:00 2023-11-14 11:30:00 Outpatient RENETTA MONTEJO RANDEE LIRIANO [id number] [facility] 2023-11-14 00:00:00 2023-11-14 00:00:00 Outpatient RANDEE RNADEE [id number] [facility] 2023-11-14 00:00:00 2023-11-14 00:00:00 Outpatient RENETTA MONTEJO RANDEE [id number] [facility] 2023-11-10 00:00:00 2023-11-10 00:00:00 Outpatient RENETTA MONTEJO RANDEE [id number] Randee [facility] 2023-11-09 00:00:00 2023-11-09 10:47:00 Letter (Out) Campaigns, Generic Provider [facility] [id number] [id number] [id number] General acute hospital 2023-11-03 11:15:00 2023-11-03 11:15:00 Outpatient SAM DOTY RANDEE LIRIANO [id number] Randee [facility] 2023-11-03 00:00:00 2023-11-03 00:00:00 Outpatient SAM DOTY RANDEE LIRIANO [id number] Randee [facility] 2023-11-03 00:00:00 2023-11-03 00:00:00 Outpatient RENETTA MONTEJO RANDEE LIRIANO [id number] [facility] 2023-10-30 19:51:00 2023-10-31 00:01:00 Emergency SUKHDEEP CURTIS PHILLIP MSEZEKIEL ERT [id number] General acute hospital 2023-10-30 19:51:00 2023-10-31 00:01:00 Emergency Sukhdeep Hooks [facility] .[id number] [id number] [id number] [id number] General acute hospital 2023-10-20 00:00:00 2023-10-20 00:00:00 Outpatient RENETTA MONTEJO RANDEE LIRIANO [id number] Randee [facility] 2023-10-06 00:00:00 2023-10-06 00:00:00 Outpatient LANIE JOHNSON RANDEE [id number] Randee [facility] 2023-10-06 00:00:00 2023-10-06 00:00:00 Outpatient RENETTA MONTEJO RANDEE [id number] Randee [facility] 2023-09-29 14:30:00 2023-09-29 14:30:00 Outpatient RENETTA MONTEJO RANDEE [id number] Randee [facility] 2023-09-27 16:44:17 2023-09-27 16:44:17 Outpatient SFA SFA [id number] Delonte Rowe 2023-09-27 00:00:00 2023-09-27 00:00:00 Outpatient Visit SFA [id number] Delonte Rowe 2023-09-13 00:00:00 2023-09-13 00:00:00 Outpatient RENETTA MONTEJO RANDEE [id number] [facility] 2023-08-25 00:00:00 2023-08-25 00:00:00 Outpatient RENETTA MONTEJOVASILIY LIRIANO [id number] [facility] 2023-07-28 00:00:00 2023-07-28 00:00:00 Outpatient RENETTA MONTEJOVASILIY LIRIANO [id number] [facility]23-[facility]-21 11:00:00 2023-07-21 11:00:00 Outpatient RENETTA MONTEJO RANDEE [id number] Randee [facility] 2023-07-21 00:00:00 2023-07-21 00:00:00 Outpatient NINARACHEL Hauser RANDEE LIRIANO [id number] [facility] 2023-06-22 00:00:00 2023-06-22 00:00:00 Outpatient RACHEL MOSS [id number] [facility] 2023-04-05 00:00:00 2023-04-05 00:00:00 Outpatient RACHEL MOSS [id number] [facility] 2023-03-28 00:00:00 2023-03-28 00:00:00 Outpatient PREZAS, RACHEL LIRIANO RANDEE [id number] Randee Villatoro 2023-02-25 00:00:00 2023-02-25 00:00:00 Outpatient PREZAS, RACHEL LIRIANO RANDEE [id number] Randee Villatoro 2022-09-13 00:00:00 2022-09-13 00:00:00 Outpatient PREZAS, RACHEL LIRIANO RANDEE [id number] [facility]ee [facility] 2022-08-26 00:00:00 2022-08-26 00:00:00 Outpatient PREZAS, RACHEL LIRIANO RANDEE [id number] Randee Villatoro 2022-08-13 00:00:00 2022-08-13 00:00:00 Outpatient PREZAS, RACHEL RANDEE RANDEE [id number] [facility] 2022-08-12 09:00:00 2022-08-12 09:00:00 Outpatient HAN LIRIANO RANDEE [id number] [facility] 2022-08-12 08:15:00 2022-08-12 08:15:00 Outpatient PREZAS, RACHEL LIRIANO RANDEE [id number] [facility] 2022-07-22 00:00:00 2022-07-22 00:00:00 Outpatient PREZAS, RACHEL RANDEE LIRIANO [id number] [facility] 2022-07-21 00:00:00 2022-07-21 00:00:00 Outpatient PREZAS, RACHEL RANDEE LIRIANO [id number] [facility] 2022-07-13 11:00:00 2022-07-13 11:00:00 Outpatient PREZAS, RACHEL RANDEE LIRIANO [id number] [facility] 2022-07-01 10:00:00 2022-07-01 10:00:00 Outpatient GUIDOLISS [id number] [facility] 2022-02-15 15:01:23 2022-02-15 15:01:23 Outpatient SFA [facility] [id number] Delonte Rowe 2022-01-04 00:00:00 2022-01-04 00:00:00 Outpatient Visit [id number] 2021-12-18 00:00:00 2021-12-18 00:00:00 Outpatient Visit [id number] [id number] 00:00:00 2021-11-26 00:00:00 Outpatient Visit [id number] 2021-11-02 00:00:00 2021-11-02 00:00:00 Outpatient Visit [id number] Results Test Description Test Time Test Comments [...] prominent at L4-L5. Soft tissues are grosslyunremarkable. [id number] 01:46:16* Test Item Value Reference Range Interpretation Comme nts NT-proBNP (test code = 44323-6) <=125 Lab Interpretation (test cod e = 24484-4) Normal [facility] [id number] 01:41:04* Test Item Value Reference Range Interpretation Comme nts TROPONIN I (test code = 2984853136) <=0.034 WILBUR (test code = WILBUR) Reference [...] of biotin. Lab Interpretation (test code = 87362-6) Normal [facility] Met[facility] (17690)2023-10-31 01:29:25* Test Item Value Reference Range Interpretation Comme nts NA (test code = 9219221355) 140 mmol/L 135-145 K (test code = 2539983611) 4.0 mmol/L 3.5-5.0 CL (test code = 2596915522) 108 mmol/L 98-108 CO2 TOTAL (test code = 7147446743) 24 mmol/L 23-31 AGAP (test code = 0175781252) 8 2-16 BUN (test code = 0663792002) 6 mg/dL 7-23 L GLUCOSE (test code = 2409876705) 106 mg/dL 70-110 CREATININE (test code = 2160-0) 1.00 mg/dL 0.60-1.25 TOTAL BILI (test code = 5206750502) 0.3 mg/dL 0.1-1.1 CALCIUM (test code = 8914310787) 8.1 mg/dL 8.6-10.6 L T PROTEIN (test code = 1590123812) 6.7 g/dL 6.3-8.2 ALBUMIN (test code = 6554510430) 3.9 g/dL 3.5-5.0 ALK PHOS (test code = 9762714942) 108 U/L 34-122 ALTv (test code = 1742-6) 24 U/L 5-50 AST(SGOT) (test code = 9129927210) 27 U/L 13-40 eGFR (test code = 04651-1) 95.8 mL/min/1.73m2 CKD-EPI eGFR (2020). Assuming creatinine has been stable day-to-day for at least three months, the eGFR indicates Category G1 (>= 90 mL/min/1.73 m2) Lab Interpretation (test code = 84605-8) Abnormal [facility] with [id number] 01:14:23* Test Item Value Reference Range Interpretation [...] 34.1 g/dL 31.2-35.0 RDW-SD (test code = 85729-1) 43.6 fL 38.5-51.6 RDW-CV (test code = 788-0) 13.2 % 12.1-15.4 PLT (test code = 777-3) 275 150-328 MPV (test code = 48241-3) 9.4 fL 9.8-13.0 L NRBC/100 WBC (test code = 7827630923) 0.0 0.0-10.0 NRBC x10^3 (test code = 2439053654) See_Comment [Automated messa ge] The system which generated this result transmitted reference range: 10*3/?L. The reference range was not used to interpret this result as normal/abnormal. GRAN MAT (NEUT) % (test code = 770-8) 56.7 % IMM GRAN % (test code = 9756877365) 0.30 % LYMPH % (test code = 736-9) 28.4 % MONO % (test code = 5905-5) 8.7 % EOS % (test code = 713-8) 5.6 % BASO % (test code = 706-2) 0.3 % GRAN MAT x10^3(ANC) (test code = 5067526697) 4.12 10*3/uL 1.99-6.95 IMM GRAN x10^3 (test code = 0195376214) 0.00-0.06 LYMPH x10^3 (test code = 731-0) 2.06 10*3/uL 1.09-3.23 MONO x10^3 (test code = 742-7) 0.63 10*3/uL 0.36-1.02 EOS x10^3 (test code = 711-2) 0.41 10*3/uL 0.06-0.53 BASO x10^3 (test code = 704-7) 0.01-0.09 Lab Interpretation (test code = 22774-5) Abnormal [facility]OL[facility] [id number] 04:53:13* Test Item Value Reference Range Interpretation Comme nts GLUCOSE (test code = 2217) 94 MG/DL 70-99 BUN (test code = 8) 12 MG/DL 6-20 CREATININE (test code = 2214) 0.94 MG/DL 0.80-1.40 eGFR (2020 CKD-EPI) (test code = 87312) 104 ML/MIN/1.73 >60 CALC BUN/CREAT (test code = 2235) 13 RATIO 6-28 SODIUM (test code = 2231) 141 MEQ/L 133-146 POTASSIUM (test code = 2228) 4.2 MEQ/L 3.5-5.4 CHLORIDE (test code = 2215) 102 MEQ/L 95-107 CARBON DIOXIDE (test code = 2206) 27 MEQ/L 19-31 CALCIUM (test code = 2209) 9.4 MG/DL 8.5-10.5 PROTEIN, TOTAL (test code = 2228) 7.1 G/DL 6.1-8.3 ALBUMIN (test code = 2200) 4.4 G/DL 3.5-5.2 CALC GLOBULIN (test code = 2240) 2.7 G/DL 1.9-3.7 CALC A/G RATIO (test code = 2233) 1.6 RATIO 1.0-2.6 BILIRUBIN, TOTAL (test code = 2206) 0.4 MG/DL <=1.2 ALKALINE PHOSPHATASE (test code = 2203) 133 U/L 40-119 H AST (test code = 2217) 21 U/L 9-50 ALT (test code = 2218) 20 U/L 5-50 UNLESS OTHERWISE INDICATED, ALL TESTING PERFORMED AT [facility] [address] [place] [address] [employer]ING SUPPORT WORKER: DALLAS CALLES M.D. CLIA NUMBER [id number] [facility] [place]. [id number] CBC W/AUTO DIFF WITH [id number] 03:21:57* Test Item Value Reference Range Interpretation [...] = 1065) 0.0 /100 WBC'S See_Comment [Automated messa ge] The system which [...] 0.00-0.10 ABS NUCLEATED RBCS (test code = 50080) 0.00 K/UL 0.00-0.11
[2024-05-10 13:45] LABS: Absolute Basophils 0.1 K/uL (0-0.5); Absolute Lymphocytes (CBC) 1.1 K/uL (0.7-4.9); Absolute Monocytes 0.6 K/uL (0.1-1.3); Absolute Neutrophil 7.3 K/uL (1.8-8.0); Basophils % 0.7 % (0-1.3); Eosinophils % 0.5 % (0-4.4); Hematocrit 42.1 % (39.6-49.0); Hemoglobin 14.5 g/dL (13.6-17.9); Lymphocytes % 12.4 % (15.3-44.8); MCH 29.7 pg (27.0-35.0); MCHC 34.5 g/dL (32.0-36.0); MPV 7.9 fL (7.6-11.3); Monocytes % 6.4 % (3.3-12.3); Platelets 321 thou/uL (152-406); RBC Red Blood Cell Count 4.89 M/uL (4.33-5.43); Red Cell Distribution Width 15.2 % (12.1-15.2)
[2024-05-10 13:51] LABS: PT Prothrombin Time 13.7 SECONDS (9.4-12.5); Protime INR 1.31
[2024-05-10 13:58] LABS: ALT/SGPT 43 U/L (16-61); AST/SGOT 22 U/L (15-37); Albumin 3.4 g/dL (3.4-5.0); Albumin/Globulin Ratio 0.9 (1.1-1.8); Alkaline Phosphatase 125 U/L (45-117); Anion Gap 12.6 mEq/L (5.0-15.0); BUN Blood Urea Nitrogen 6 mg/dL (7-18); Bicarbonate 23 mEq/L (21-32); Bilirubin Total 0.4 mg/dL (0.2-1.0); Globulin 3.9 g/dL (2.3-3.5); Glomerular Filtration Rate 107 ml/min (=/>90); Glucose Level 130 mg/dL (74-106); Magnesium 2.2 mg/dL (1.6-2.4); NT PRO-BNP 26 pg/mL (<125); Potassium 3.6 mEq/L (3.5-5.1); Protein, Total 7.3 g/dL (6.4-8.2); Sodium Level 137 mEq/L (136-145)
[2024-05-10 13:59] LABS: Bilirubin Direct < 0.2 mg/dL (0-0.2); Bilirubin Indirect, Calculated 0.2 mg/dL (0.2-0.8); Troponin High Sensitivity < 3.0 pg/mL (<58.9)
--- NOTE | 2024-05-10 14:01 | RAD REPORT ---
Procedure: Chest Single View HISTORY: Chest pain COMPARISON: October 2023 FINDINGS: The lungs appear clear of acute infiltrate. No significant pleural effusion noted. The heart is normal size. IMPRESSION: No acute abnormality is displayed.
[2024-05-10] MEDS ORDERED: LORAZEPAM 1 MG TABLET ONE (15:41)
--- NOTE | 2024-05-10 15:59 | EDPHYS ---
Physician Documentation [facility] Name: Ameya Muniz Age: 43 yrs Sex: Male : 1980 Arrival Date: 05/10/2024 Time: 13:07 Bed 3 Private MD: ED Physician Sheldon Swann HPI: 05/10 13:20 This 43 yrs old Male presents to ER via Unassigned with complaints of Chest sb4 Pain, Shortness Of Breath. 13:20 Chest pain and shortness of breath upon waking this morning. States that he has been sb4 under more stress than usual. Denies any medical history. States that the pain feels like a tightness in his chest. Does not radiate anywhere. It is associated with nausea, dizziness, and shortness of breath. Denies any prior episodes. States that it comes and goes but never fully goes away. Historical: - Allergies: 13:40 Naproxen; jb4 13:40 tramadol; jb4 - PMHx: 13:40 back problems; nerve pain (back problems); jb4 - Immunization history:: Adult Immunizations up to date. - Infectious Disease History:: Denies. - Social history:: Smoking status: Patient reports the use of cigarette tobacco products, denies chronic smoking, but will smoke occasionally, Patient uses alcohol, occasionally. ROS: 13:20 Constitutional: Negative for fever, chills, and weight loss, sb4 13:20 Cardiovascular: Positive for chest pain, 13:20 Respiratory: Positive for shortness of breath, 13:20 Abdomen/GI: Positive for nausea, 13:20 Neuro: Positive for dizziness, 13:20 All other systems are negative, Exam: 13:20 Head/Face: Normocephalic, atraumatic. Eyes: Extra-ocular motions intact. Periorbital sb4 areas with no swelling, redness, or edema. ENT: Mucous membranes moist. Cardiovascular: Regular rate and rhythm with a normal S1 and S2. Respiratory: No increased work of breathing, no retractions or nasal flaring. Abdomen/GI: Soft, non-tender, no distension. Skin: Warm, dry with normal turgor. Normal color with no rashes, no lesions, and no evidence of cellulitis. MS/ Extremity: Pulses equal, no cyanosis. Neurovascular intact. Full, normal range of motion. 13:20 Constitutional: The patient appears alert, awake, anxious, Vital Signs: 13:38 BP 151 / 100; Pulse 84; Resp 16; Temp 97.8(O); Pulse Ox 100% on R/A; Weight 99.79 kg jb4 (R); Height 5 ft. 11 in. (R); Pain 8/10; 14:48 BP 151 / 93; Pulse 74; Resp 15; Pulse Ox 100% ; ko1 15:58 BP 136 / 99; Pulse 72; Resp 15; Pulse Ox 99% ; ko1 13:38 Body Mass Index 30.68 (99.79 kg, 180.34 cm) jb4 13:38 Pain Scale: Adult jb4 MDM: 13:11 Medical Screening Exam initiated sb4 13:22 Differential diagnosis:. sb4 13:22 Differential diagnosis: abnormal EKG, acute myocardial infarction, acute pericarditis, sb4 anxiety, coronary artery disease gastroesophageal reflux disease (GERD), pneumonia, stable angina, unstable angina. 13:29 The patient was not given aspirin in the Emergency Department. Patient reports taking sb4 aspirin within the past 24 hours. 14:04 Data reviewed: vital signs, nurses notes, lab test result(s), EKG, radiologic studies, sb4 and as a result, I will discharge patient. Consideration of Admission/Observation Escalation of care including admission/observation considered. Scoring Tools HEART Score: History: ECG: Age: Risk Factors: 1 or 2 risk factors (1), Troponin: Total Score = 1. Counseling: I had a detailed discussion with the patient and/or guardian regarding the historical points, exam findings, and any diagnostic results supporting the discharge/admit diagnosis, the presence of at least one elevated blood pressure reading (>120/80) during this emergency department visit, lab results, radiology results, the need for outpatient follow up, for definitive care, to return to the emergency department if symptoms worsen or persist or if there are any questions or concerns that arise at home, smoking cessation. 05/10 13:20 Order name: Basic Metabolic Panel; Complete Time: 14:00 sb4 05/10 13:20 Order name: CBC with Diff; Complete Time: 13:51 sb4 05/10 13:20 Order name: LFT's; Complete Time: 14:00 sb4 05/10 13:20 Order name: Magnesium; Complete Time: 14:00 sb4 05/10 13:20 Order name: NT PRO-BNP; Complete Time: 14:00 05/10 13:20 Order name: PT-INR; Complete Time: 13:51 05/10 13:20 Order name: Troponin HS; Complete Time: 14:00 05/10 15:09 Order name: Troponin High Sensitivity; Complete Time: 15:54 05/10 13:20 Order name: XRAY Chest (1 view); Complete Time: 14:05/10 13:20 Order name: EKG; Complete Time: 13:20 05/10 13:20 Order name: Cardiac monitoring; Complete Time: 13:27 05/10 13:20 Order name: EKG - Nurse/Tech; Complete Time: 13:27 05/10 13:20 Order name: IV Saline Lock; Complete Time: 13:27 05/10 13:20 Order name: Labs collected and sent; Complete Time: 13:36 05/10 13:20 Order name: O2 Per Protocol; Complete Time: 13:27 05/10 13:20 Order name: O2 Sat Monitoring; Complete Time: 13:27 05/10 14:01 Order name: Misc. Order: repeat trop at ekg at 1530; Complete Time: 15:16 05/10 15:09 Order name: EKG - Nurse/Tech; Complete Time: 15:16 sb4 EC:28 Rate is 89 beats/min. Rhythm is regular, Normal Sinus Rhythm. SC interval is normal at sb4 164 msec. QRS interval is normal at 92 msec. QT interval is prolonged at 400 msec. No Q waves. T waves are Normal. No ST changes noted. Clinical impression: Normal ECG. Interpreted by me. Reviewed by me. 15:27 Rate is 70 beats/min. Rhythm is regular, Normal Sinus Rhythm. SC interval is normal at sb4 170 msec. QRS interval is normal at 94 msec. QT interval is normal at 404 msec. No Q waves. T waves are Normal. No ST changes noted. Clinical impression: Normal ECG. Interpreted by me. Reviewed by me. Administered Medications: 13:29 Not Given (Physician Discretion): aspirinchewable tablet 324 mg PO once; 81 mg tablets sb4 x 4 15:43 Drug: LORazepam PO 1 mg PO once Route: PO; ko1 16:01 Follow up: Response: No adverse reaction; Medication administered at discharge. ko1 Disposition: 17:43 Co-signature as Attending Physician, Sheldon Swann MD. rn Disposition Summary: 05/10/24 15:58 Discharge Ordered Notes: Location: Home sb4 Problem: new sb4 Symptoms: have improved sb4 Condition: Stable sb4 Diagnosis - Chest pain, unspecified sb4 - Anxiety disorder, unspecified sb4 Followup: sb4 - With: Emergency Department - When: As needed - Reason: Trouble breathing, Worsening of condition Discharge Instructions: - Discharge Summary Sheet sb4 - Nonspecific Chest Pain, Adult, [id number] sb4 - Managing Anxiety, Adult sb4 Forms: - Patient Portal Instructions sb4 - Leadership Thank You Letter sb4 Prescriptions: - Hydroxyzine HCl 50 mg Oral Tablet - take 1 tablet ORAL route every 8 hours As needed; 20 tablet; Refills: 0, sb4 Product Selection Permitted Signatures: Dispatcher [employer] EDMS Sheldon Swann MD MD rn Bryson, James RN RN jb4 Marsha Castillo RN RN ko1 Tammy Clemons PA-Beau PA-C sb4 Corrections: (The following items were deleted from the chart) 13:38 13:22 The patient was given aspirin in the Emergency Department. sb4 sb4 15:10 15:10 Troponin High Sensitivity+C.LAB.BRZ ordered. EDMS EDMS
--- NOTE | 2024-05-10 15:59 | ER ---
Nurse's Notes [facility] Name: Ameya Muniz Age: 43 yrs Sex: Male : 1980 Arrival Date: 05/10/2024 Time: 13:07 Bed 3 Private MD: Diagnosis: Chest pain, unspecified;Anxiety disorder, unspecified Presentation: 05/10 13:38 Chief complaint: Patient states: I started having a pressure like chest pain around 9 jb4 am. At that time I started feeling dizzy and nauseous as well. Coronavirus screen: At this time, the client does not indicate any symptoms associated with coronavirus-19. Ebola Screen: No symptoms or risks identified at this time. Initial Sepsis Screen: Does the patient meet any 2 criteria? No. Patient's initial sepsis screen is negative. Does the patient have a suspected source of infection? No. Patient's initial sepsis screen is negative. Risk Assessment: Do you want to hurt yourself or someone else? Patient reports no desire to harm self or others. Onset of symptoms was May 10, 2024. Transition of care: patient was not received from another setting of care. 13:38 Method Of Arrival: Ambulatory jb4 13:38 Acuity: AVIVA 2 jb4 Historical: - Allergies: 13:40 Naproxen; jb4 13:40 tramadol; jb4 - PMHx: 13:40 back problems; nerve pain (back problems); jb4 - Immunization history:: Adult Immunizations up to date. - Infectious Disease History:: Denies. - Social history:: Smoking status: Patient reports the use of cigarette tobacco products, denies chronic smoking, but will smoke occasionally, Patient uses alcohol, occasionally. Screenin:37 [facility] ED Fall Risk Assessment (Adult) History of falling in the last 3 months, jb4 including since admission No falls in past 3 months (0 pts) Confusion or Disorientation Yes (5 pts) Intoxicated or Sedated No (0 pts) Impaired Gait No (0 pts) Mobility Assist Device Used No (0 pt) Altered Elimination No (0 pt) Score/Fall Risk Level 0 - 2 = Low Risk Oriented to surroundings, Maintained a safe environment, Educated pt \\T\\ family on fall prevention, incl call for assistance when getting out of bed, Assessed \\T\\ reinforced patient's understanding of fall precautions, Provided non-skid footwear, Hourly rounding (assess needs \\T\\ fall precautionary measures) done. Abuse screen: Denies threats or abuse. Denies injuries from another. Nutritional screening: No deficits noted. Tuberculosis screening: No symptoms or risk factors identified. Assessment: 13:45 General: Appears in no apparent distress. Behavior is anxious. Pain: Complains of pain jb4 in chest Pain does not radiate. Pain began gradually. Neuro: No deficits noted. Cardiovascular: Reports chest pain. Respiratory: Reports shortness of breath. GI: No deficits noted. No signs and/or symptoms were reported involving the gastrointestinal system. : No deficits noted. No signs and/or symptoms were reported regarding the genitourinary system. EENT: No deficits noted. No signs and/or symptoms were reported regarding the EENT system. Derm: No deficits noted. No signs and/or symptoms reported regarding the dermatologic system. Musculoskeletal: No deficits noted. No signs and/or symptoms reported regarding the musculoskeletal system. 13:47 Reassessment: Pt states "I took 2 pills of Anacin (contains 400mg of ASA) this aa5 morning", PA was notified. . Vital Signs: 13:38 BP 151 / 100; Pulse 84; Resp 16; Temp 97.8(O); Pulse Ox 100% on R/A; Weight 99.79 kg jb4 (R); Height 5 ft. 11 in. (R); Pain 8/10; 14:48 BP 151 / 93; Pulse 74; Resp 15; Pulse Ox 100% ; ko1 15:58 BP 136 / 99; Pulse 72; Resp 15; Pulse Ox 99% ; ko1 13:38 Body Mass Index 30.68 (99.79 kg, 180.34 cm) jb4 13:38 Pain Scale: Adult jb4 ED Course: 13:09 Patient arrived in ED. mr 13:10 Tammy Clemons PA-C is PHCP. sb4 13:10 Sheldon Swann MD is Attending Physician. sb4 13:36 Basic Metabolic Panel Sent. jb4 13:36 CBC with Diff Sent. jb4 13:36 LFT's Sent. jb4 13:36 Magnesium Sent. jb4 13:36 NT PRO-BNP Sent. jb4 13:36 PT-INR Sent. jb4 13:36 Troponin HS Sent. jb4 13:37 Patient has correct armband on for positive identification. Bed in low position. Call jb4 light in reach. Side rails up X2. Provided Education on: labs. Client placed on continuous cardiac and pulse oximetry monitoring. NIBP monitoring applied. electronic device monitor on. Door closed. Noise minimized. Lights dimmed. Warm blanket given. Pillow given. 13:40 Triage completed. jb4 13:40 Arm band placed on right wrist. EKG completed in triage. Results shown to MDSerina stephens4 13:45 Initial lab(s) drawn, by me, sent to lab. EKG done, by ED staff, reviewed by Tammy Clemons PA-C. Inserted saline lock: 20 gauge in right forearm, using aseptic technique. Blood collected. Flushed with 10 mL NS. Patient maintains SpO2 saturation greater than 95% on room air. 13:53 XRAY Chest (1 view) In Process Unspecified. EDMS 15:16 Troponin High Sensitivity Sent. ko1 15:58 No provider procedures requiring assistance completed. ko1 16:12 IV discontinued, intact, bleeding controlled, No redness/swelling at site. Pressure ko1 dressing applied. Administered Medications: 13:29 Not Given (Physician Discretion): aspirinchewable tablet 324 mg PO once; 81 mg tablets sb4 x 4 15:43 Drug: LORazepam PO 1 mg PO once Route: PO; ko1 16:01 Follow up: Response: No adverse reaction; Medication administered at discharge. ko1 Medication: 13:37 VIS not applicable for this client. jb4 Outcome: 15:58 Discharge ordered by MD. sb4 16:12 Discharged to home ambulatory, ko1 16:12 Condition: stable 16:12 Discharge instructions given to patient, Instructed on discharge instructions, follow up and referral plans. medication usage, Demonstrated understanding of instructions, follow-up care, medications, Prescriptions given X 1, 16:12 Patient left the ED. ko1 Signatures: Dispatcher [employer] EDHI CarrilloKasey, Reg Reg mr Veronica Begum, RN RN oh5 Ameya Royal, HAO stephens4 Marsha Castillo RN RN Tammy Kirkland PA-C PA-C sb4 Corrections: (The following items were deleted from the chart) 14:49 13:45 Initial lab(s) drawn, by me, sent to lab. EKG done, by ED staff, reviewed by nadege Clemons PA-C jb4 14:51 13:45 Initial lab(s) drawn, by me, sent to lab. EKG done, by ED staff, reviewed by nadege light 19:17 13:19 Veronica Begum, RN is Primary Nurse. aa5 aa5
[2024-05-10 23:07] VITALS: TEMP 97.8
[2024-05-10 23:09] VITALS: BP 136/99; O2SAT 99
== END 2024-05-10 16:12 | disposition home or self-care (01) ==
LOC: ER 13:07
DX: F41.9 Anxiety disorder, unspecified (principal); F17.210 Nicotine dependence, cigarettes, uncomplicated
CPT/HCPCS: 36415; 71045; 80048; 80076; 83735; 83880; 84484; 85025; 85610; 93005; 99285

== ENCOUNTER 2024-05-23 12:18 | Emergency (ER) | payer OTHER ==
--- OUTSIDE RECORDS SUMMARY | 2024-05-23 12:22 | XMS REPORT | Continuity of Care Document ---
Author Name Unknown Address [address] [facility] [address]. [address] [place] [address] [facility] thconnect Address [address] [facility]. [address] [place] [address] Care Team Providers Care Professional Nursing Tutor Name Role Phone [facility] Primary Care Physician CATRINA HORAN Attending Clinician Unavailable RENETTA MONTEJO Attending Clinician Unavailab kameron Penaloza, Generic Provider Attending Clinician Unavailable LAMBERT JEWELL Attending Clinician Unavailable LAMBERT JEWELL Attending Clinician Unavailable Lambert Jewell DO Attending Clinician [phone] RACHEL MOSS Attending Clinician Unavailable Ca, Generic Provider Attending Clinician Unavailable SAM DOTY Attending Clinician Unacayden ilSUKHDEEP Jones Attending Clinician Unavailable SUKHDEEP HOOKS Attending Clinician Unavailable LANIE JOHNSON Attending Clinician Unavailabl e LAB90 Attending Clinician Unavailable LISS LORA Attending Clinician Unavailable LAMBERT JEWELL Admitting Clinician Unavailable SUKHDEEP HOOKS Admitting Clinician Unavailable Payers Payer Name Policy Type Policy Number Effective Date Expirati on Date Source [facility] [employer] 9 [id number] 2024 00:00:00 NOREEN ANDREWS 5 [employer]MO [employer] 94 ON 9 [id number] 2023 00:00:00 Problems Condition Name Condition Details Condition Category Status Onset Date Resolution Date Last Treatment Date Treating Clinician Comments Source Chest pain Chest pain Disease Active 8-05 00:00: 00 Randee Seybold - Externa l Panic attack Panic attack Disease Active 8-05 00:00: 00 Randee Seybold - Externa l Mild major depression Mild major depression Disease Active 4-11 00:00: 00 Randee Seybold - Externa l Well adult exam Well adult exam Disease Active 5-04 00:00: 00 Arndee Seybold - Externa l Elevated BP without diagnosis of hypertensi on Elevated BP without diagnosis of hypertensi on Disease Active 5-04 00:00: 00 Randee Seybold - Externa l Mild major depression Mild major depression Disease Active 5-04 00:00: 00 Randee Seybold - Externa l Depression Depression Disease Active 4-04 00:00: 00 Randee Seybold - Externa l Chronic back pain Chronic back pain Disease Active 4-04 00:00: 00 Randee Seybold - Externa l Neuropathy Neuropathy Disease Active 4-04 00:00: 00 Randee Seybold - Externa l Vitiligo Vitiligo Disease Active 4-04 00:00: 00 Randee Seybold - Externa l [...] NO KNOWN ALLERGIE S Drug Class Active [facility] Social History Social Habit Start Date Stop Date Quantity Comments Source Sexual orientation [facility] Gender identity Cherry Villatoro - External History of Occupation Randee Villatoro - External History of tobacco use Cigarette Smoker Randee martinez - External Alcoholic beverage intake 2023-10-30 00:00:00 2023-10-30 00:00:00 .57 /d [facility] History of Social function 2023-10-30 00:00:00 2023-10-30 00:00:00 [facility] Cigarettes smoked current (pack per [...] Sex assigned at 1980 00:00:00 1980 00:00:00 [facility] Smoking Status Start Date Stop Date Source Occasional tobacco smoker 2023-07-21 00:00:00 Randee Villatoro - External Light tobacco smoker 2015-08-12 00:00:00 [facility] Medications Ordered Medication Name Filled Medication Name Start Date Stop Date Current Medication? Ordering Clinician Indication Dosage Frequency Signature (SIG) Comments Components Source ketorolac (TORADOL) injection 30 mg 05-16 20:00: 00 05-16 19:29 :00 No 30mg 30 mg, Intramuscu lar, ONCE, 1 dose, On Tue05/16/24 at 1400, [facility] methocarbam oL (ROBAXIN) tablet 1,000 mg 05-16 19:00: 00 05-16 19:28 :00 No 1000mg 1,000 mg, Oral, ONCE, 1 dose, On Tue05/16/24 at 1300, [facility] ibuprofen 600 mg tablet 05-16 00:00: 00 Yes [id number] 600mg Take 1 tablet by mouth every 8 (eight) hours as needed for Pain (scale 4-6). [facility] methocarbam oL 750 mg tablet 05-16 00:00: 00 Yes [id number] 750mg Take 1 tablet by mouth 4 (four) times daily. [facility] Furosemide (LASIX) 20 MG oral Tablet 01-03 15:03: 49 01-03 00:00 :00 No 20mg Take 1 tablet (20 mg total) by mouth every morning. Randee malhotra Cetirizine HCl 10 MG oral Capsule 01-03 00:00: 00 Yes [id number] 10mg QD Take 1 capsule (10 mg total) by mouth daily. Ranede malhotra Albuterol HFA 108 (90 Base) MCG/ACT IN AERS 01-03 00:00: 00 Yes [id number] 1{puff} Q.25D Inhale 1 puff into the [...] MG oral Tablet 11-09 00:00: 00 Yes [id number] 600mg Q.25D Take 1 tablet (600 mg total) by mouth 4 times daily. Randee malhotra Lorazepam 1 MG oral Tablet 11-06 00:00: 00 Yes 1mg QD Take 1 tablet (1 mg total) by mouth daily as needed for anxiety. Randee malhotra iopamidol (ISOVUE 370-500 mL) injection 100 mL 10-30 04:15: 00 10-30 04:15 :00 No [id number] 100mL 100 mL, Intravenou s, ONCE, 1 dose, On 10/30/23 at 2315, Routine [facility] ketorolac (TORADOL) injection 15 mg 10-30 02:30: 00 10-30 01:49 :00 No 15mg 15 mg, Slow IV Push, ONCE, 1 dose, On 10/30/23 at 2130, Routine [facility] furosemide (LASIX) injection 40 mg 10-30 01:45: 00 10-30 01:37 :00 No 40mg 40 mg, IV Push, ONCE, 1 dose, On 10/30/23 at 2045, ARISTEO [facility] furosemide 20 mg tablet 10-29 00:00: 00 Yes [id number] 20mg Take 1 tablet by mouth every morning. [facility] Albuterol HFA 108 (90 Base) MCG/ACT IN AERS 10-25 00:00: 00 01-03 00:00 :00 No INHALE 1 PUFF BY MOUTH EVERY 4 HOURS NEEDED DYSPNEA Randee malhotra predniSONE (DELTASONE) 20 MG oral tablet 10-25 00:00: 00 01-03 00:00 :00 No TAKE 2 TABLETS BY MOUTH EVERY DAY FOR 5 DAYS Randee malhotra Gabapentin 600 MG oral Tablet 20 00:00: 00 Yes [id number] 600mg Take 1 tablet (600 mg total) by mouth 4 times daily. Randee malhotra Ibuprofen (MOTRIN) 600 MG oral Tablet 14 00:00: 00 01-03 00:00 :00 No TAKE 1 TABLET BY MOUTH EVERY 8 HOURS NEEDED FOR PAIN. TAKE WITH FOOD AND DRINK PLENTY OF WATER. Randee malhotra Gabapentin 600 MG oral Tablet -16 00:00: 00 09-28 00:00 :00 No [id number] 600mg Take 1 tablet (600 mg total) by mouth 3 times daily No driving or drinking alcohol with medication . Randee mahlotra Sertraline HCl 100 MG oral Tablet - 00:00: 00 Yes [id number] 100mg QD Take 1 tablet (100 mg total) by mouth daily. Randee malhotra Gabapentin 600 MG oral Tablet 07-20 00:00: 00 Yes [id number] 600mg Take 1 tablet (600 mg total) by mouth 3 times daily No driving or drinking alcohol with medication . Randee malhotra Gabapentin 600 MG oral Tablet -13 00:00: 00 07-20 00:00 :00 No [id number] 600mg Take 1 tablet (600 mg total) by mouth 3 times daily. Randee malhotra Sertraline HCl 100 MG oral Tablet 08-12 00:00: 00 Yes [id number] 100mg Take 1 tablet (100 mg total) by mouth daily Randee malhotra Gabapentin 600 MG oral Tablet 08-12 00:00: 00 Yes [id number] 600mg Take 1 tablet (600 mg total) by mouth 3 times daily Randee malhotra Gabapentin 600 MG oral Tablet 07-13 00:00: 00 Yes [id number] 600mg Take 1 tablet (600 mg total) by mouth 2 times daily Randee malhotra Sertraline HCl 50 MG oral Tablet 07-13 00:00: 00 Yes [id number] 50mg Take 1 tablet (50 mg total) by mouth daily Randee malhotra Acetaminoph en-Codeine #3 300-30 MG oral Tablet 06-14 00:00: 00 07-13 00:00 :00 No 1{tbl} Take 1 tablet by mouth every 4 to 6 hours as needed for pain Randee malhotra Sertraline HCl 50 MG oral Tablet 3- 00:00: 00 07-13 00:00 :00 No TAKE 1 TABLET BY MOUTH 1 TIME EACH DAY. Randee Shauna - Deva roscoe Gabapentin 600 MG oral Tablet 05-11 00:00: 00 07-13 00:00 :00 No 600mg Take 600 mg by mouth daily Randee Naqviomarimichelle Cardozo Devrick malhotra TAKE 1 CAPSULE AT BEDTIME. - 00:00: 00 Yes 300 Delonte Rowe TAKE 1 TABLET BY MOUTH EVERY 6 HOURS NEEDED FOR PAIN 04-15 00:00: 00 Yes Delonte Rowe HYDROcodone -Acetaminop hen (NORCO) 5-325 MG oral Tablet 04-15 00:00: 00 07-13 00:00 :00 No 1{tbl} Q.25D Take 1 tablet by mouth every 6 hours as needed FOR PAIN Randee Méndeza l Dose Unknown 11-02 00:00: 00 Yes Delonte Rowe TAKE [...] 300-30 mg tablet 08-27 00:00: 00 Yes [id number] 1{tbl} Take 1 tablet by mouth every 4 (four) hours as needed for Pain (scale 1-3). [facility] cyclobenzap rine 5 mg tablet 11-21 00:00: 00 Yes 5mg Take 1 tablet by mouth 3 (three) times daily. [facility] ibuprofen 600 mg tablet 11-21 00:00: 00 05-16 00:00 :00 No 600mg Take 1 tablet by mouth every 8 (eight) hours as needed for Pain (scale 4-6). [facility] ibuprofen (MOTRIN) 800 mg tablet 08-11 08:21: 38 05-16 00:00 :00 No 800mg Take 800 mg by mouth every 6 (six) hours as needed. [facility] Vital Signs Vital Name Observation Time Observation Value Comments Analisa pizano Systolic blood pressure 2024-05-16 19:33:56 157 mm[Hg] [facility] Diastolic blood pressure 2024-05-16 19:33:56 96 mm[Hg] [facility] Heart rate 2024-05-16 19:33:56 78 /min [facility] Body temperature 2024-05-16 19:33:56 36.89 Shreya [facility] Respiratory rate 2024-05-16 19:33:56 18 /min [facility] Oxygen saturation in Arterial blood by Pulse oximetry 2024-05-16 19:33:56 96 /min [facility] Body height 2024-05-16 18:39:00 180.3 cm [facility] Body weight 2024-05-16 18:39:00 99.791 kg [facility] BMI 2024-05-16 18:39:00 30.68 kg/m2 [facility] Systolic blood pressure 2024-01-04 19:55:00 134 mm[Hg] Randee Seybo ld - External Diastolic blood pressure 2024-01-04 19:55:00 78 mm[Hg] Randee ybo ld - External Heart rate 2024-01-04 19:55:00 88 /min Kelse y Seybold - External Body temperature 2024-01-04 19:55:00 36.61 Shreya Randee Seybold - External Respiratory rate 2024-01-04 19:55:00 18 /min Randee Seybold - External Body height 2024-01-04 19:55:00 177.8 cm Cherry ey Seybold - External Body weight 2024-01-04 19:55:00 111.131 kg Cherry ey Seybold - External BMI 2024-01-04 19:55:00 35.15 kg/m2 Cherry watts Seybold - External Oxygen saturation in Arterial blood by Pulse oximetry 2024-01-04 19:55:00 98 /min Randee López ld - External Systolic blood pressure 2023-11-14 [...] Hospital Heart rate 2023-10-31 04:00:00 80 /[facility] 2023-10-31 04:00:00 37.06 Shreya [facility] Respiratory rate 2023-10-31 04:00:00 10 /min [facility] Oxygen saturation in Arterial blood by Pulse oximetry 2023-10-31 04:00:00 98 /min [facility] Body weight 2023-10-31 01:05:00 114.306 kg [facility] BMI 2023-10-31 01:05:00 35.15 kg/m2 [facility] Body height 2023-10-31 00:46:00 180.3 cm [facility] Systolic blood pressure 2023-07-21 15:41:00 138 mm[Hg] [...] blood pressure 2022-08-12 13:17:00 85 mm[Hg] Randee Naqviybo ld - External Heart rate 2022-08-12 13:02:00 [...] blood pressure 2022-07-13 14:49:00 84 mm[Hg] Randee Quinno ld - External Heart rate 2022-07-13 14:49:00 102 /min Gisela williamson Seybold - External Body temperature 2022-07-13 14:49:00 36.89 Shreya Randee Naqviybold - External Respiratory rate 2022-07-13 14:49:00 14 /min Randee Naqviybold - External Body height 2022-07-13 14:49:00 177.8 [...] Height Measured 2021-12-18 13:27:00 71.00 inches Delonte Oli Rowe Body Temperature 2021-12-18 13:27:00 98.20 degrees Delonte Oli Rowe Heart Rate 2021-12-18 13:27:00 79.00 /min [...] Respiratory Rate 2021-11-02 08:21:00 18.00 /min Delonte Oli Rowe Procedures Procedure Date / Time Performed Performing Clinician Source XR LUMBAR SPINE 3 VW 2024-05-16 19:19:32 Jesusita Jewell [facility] XR HIPS 2 VW RIGHT 2024-05-16 19:19:32 Lambert Jewell [facility] CT ABDOMEN PELVIS W CONTRAST 2023-10-31 03:17:31 Singer Sukhdeep [facility] URINE DRUG (IMMUNOASSAY) - COMPREHENSIVE DRUG SCREEN 2023-10-31 03:08:00 Singer Sukhdeep [facility] TROPONIN I 2023-10-31 01:03:00 Sukhdeep [facility] COMP. METABOLIC PANEL (38283) 2023-10-31 01:03:00 Singer Sukhdeep [facility] ETHANOL 2023-10-31 01:03:00 Sukhdeep [facility] CBC WITH DIFF 2023-10-31 01:03:00 [facility] URINALYSIS 2023-10-31 01:03:00 Sukhdeep Hook[facility] INFLUENZA A/B RSV COVID NAAT 2023-10-31 01:03:00 Singer [facility] N-TERMINAL PRO-BNP 2023-10-31 01:03:00 [facility] Planned Activity Planned Date Details Comments Source Goal Plan of Care Note [code = 11433-4] Goal Plan of Care Note [code = 93808-1] Goal Plan of Care Note [code = 41406-4] Goal Plan of Care Note [code = 56506-3] Goal Plan of Care Note [code = 82818-4] Goal Plan of Care Note [code = 76000-3] Goal Plan of Care Note [code = 47514-5] Goal Plan of Care Note [code = 42925-3] Goal Plan of Care Note [code = 52275-0] Goal Plan of Care Note [code = 89369-3] Goal Plan of Care Note [code = 26239-5] Goal Plan of Care Note [code = 89591-4] Goal Plan of Care Note [code = 76534-7] Goal Plan of Care Note [code = 68913-4] Goal Plan of Care Note [code = 82887-5] Goal Plan of Care Note [code = 77462-9] Goal Plan of Care Note [code = 38756-8] Goal Plan of Care Note [code = 82524-8] Goal Plan of Care Note [code = 44945-9] Goal Plan of Care Note [code = 19556-2] Goal Plan of Care Note [code = 20436-0] Goal Plan of Care Note [code = 51392-4] Goal Plan of Care Note [code = 29965-1] Goal Plan of Care Note [code = 31020-4] Goal Plan of Care Note [code = 76510-8] Goal Plan of Care Note [code = 69338-3] Goal Plan of Care Note [code = 97947-5] Goal Plan of Care Note [code = 04985-5] Encounters Start Date/Time End Date/Time Encounter Type Admission Type Attending Clinicians Care Facility Care Department Encounter ID Source 2024-05-25 16:30:00 2024-05-25 16:30:00 Outpatient CATRINA HORAN RANDEE LIRIANO [id number] Randee [facility] 2024-05-25 08:30:00 2024-05-25 08:30:00 Outpatient RENETTA MONTEJO RANDEE LIRIANO [id number] [facility] 2024-05-23 00:00:00 2024-05-23 10:50:01 Letter (Out) Campaigns, Generic Provider Campaigns, Generic Provider [facility] [id number] 350.1.13.10 4.2.7.2.686 [id number] [facility] 2024-05-21 11:00:00 2024-05-21 11:00:00 Outpatient CATRINA HORAN RANDEE LIRIANO [id number] [facility] 2024-05-16 12:46:00 2024-05-16 14:09:00 Emergency LAMBERT PELAEZ [facility] [id number] [facility] 2024-05-16 12:46:00 2024-05-16 14:09:00 Emergency Lambert Jewell [facility] [id number] 350.1.13.10 [id number] [id number] [facility] 2024-05-11 09:00:00 2024-05-11 09:00:00 Outpatient NIKIA RENETTA LIRIANO [id number] [facility] 2024-04-14 00:00:00 2024-04-14 00:00:00 Outpatient RENETTA MONTEJO [id number] Randee [facility] 2024-03-22 00:00:00 2024-03-22 00:00:00 Outpatient RENETTA MONTEJO [id number] Randee [facility] 2024-03-22 00:00:00 2024-03-22 00:00:00 [facility] [id number] [facility]:00:00 2024-03-21 00:00:00 Outpatient RENETTA MONTEJO [facility] [id number] [facility]24-03-16 00:00:00 2024-03-16 00:00:00 Outpatient RACHEL [facility]OSS [facility] [id number] [facility] 2024-03-15 00:00:00 2024-03-15 00:00:00 Outpatient RENETTA MONTEJO RANDEE [id number] [facility] 2024-02-03 00:00:00 2024-02-03 00:00:00 Outpatient RENETTA MONTEJO RANDEE [id number] Randee [facility] 2024-01-12 00:00:00 2024-01-12 00:00:00 Outpatient RENETTA MONTEJO RANDEE [id number] [facility] 2024-01-12 00:00:00 2024-01-12 00:00:00 Outpatient RENETTA MONTEJO RANDEE [id number] [facility] 2024-01-09 00:00:00 2024-01-09 00:00:00 Outpatient RENETTA MONTEJO RANDEE [id number] [facility] 2024-01-04 15:00:00 2024-01-04 15:00:00 Outpatient RENETTA MONTEJO RANDEE [id number] [facility] 2023-12-15 10:00:00 2023-12-15 10:00:00 Outpatient RENETTA MONTEJO RANDEE [id number] [facility] 2023-11-14 11:30:00 2023-11-14 11:30:00 Outpatient RENETTA MONTEJO RANDEE [id number] [facility] 2023-11-14 00:00:00 2023-11-14 00:00:00 Outpatient RANDEE LIRIANO [id number] [facility] 2023-11-14 00:00:00 2023-11-14 00:00:00 Outpatient RENETTA MONTEJO RANDEE [id number] [facility] 2023-11-10 00:00:00 2023-11-10 00:00:00 Outpatient NIKIARENETTA [id number] Randee [facility] 2023-11-09 00:00:00 2023-11-09 10:47:00 Letter (Out) Ca, Generic Provider [facility] [id number] 350.1.13.10 4.2.7.2.686 [id number] [facility] 2023-11-03 11:15:00 2023-11-03 11:15:00 Outpatient SAM DOTY [id number] Rand[facility] 2023-11-03 00:00:00 2023-11-03 00:00:00 Outpatient SAM DOTY [id number] [facility] 2023-11-03 00:00:00 2023-11-03 00:00:00 Outpatient [facility]TE[facility] [id number] [facility] 2023-10-30 19:51:00 2023-10-31 00:01:00 Emergency SUKHDEEP CURTIS PHILLIP [facility] ERT [id number] [facility] 2023-10-30 19:51:00 2023-10-31 00:01:00 Emergency Sukhdeep Hooks [facility] [id number] 350.1.13.10 4.2.7.2.686 [id number] [facility] 2023-10-20 00:00:00 2023-10-20 00:00:00 Outpatient RENETTA MONTEJO [id number] [facility] 2023-10-06 00:00:00 2023-10-06 00:00:00 Outpatient LANIE JOHNSON [id number] [facility] 2023-10-06 00:00:00 2023-10-06 00:00:00 Outpatient RENETTA MONTEJO [id number] [facility] 2023-09-29 14:30:00 2023-09-29 14:30:00 Outpatient RENETTA MONTEJO [id number] [facility] 2023-09-27 16:44:17 2023-09-27 16:44:17 Outpatient SFA SFA [id number] Delonte Rowe 2023-09-27 00:00:00 2023-09-27 00:00:00 Outpatient Visit SFA [id number] Delonte Rowe 2023-09-13 00:00:00 2023-09-13 00:00:00 Outpatient RENETTA MONTEJO RANDEE LIRIANO [id number] [facility] 2023-08-25 00:00:00 2023-08-25 00:00:00 Outpatient NIKIA RENETTA LIRIANO [id number] [facility] 2023-07-28 00:00:00 2023-07-28 00:00:00 Outpatient NIKIA RENETTA LIRIANO [id number] [facility] 2023-07-21 11:00:00 2023-07-21 11:00:00 Outpatient RENETTA MONTEJO RANDEE LIRIANO [id number] [facility] 2023-07-21 00:00:00 2023-07-21 00:00:00 Outpatient AJAY RACHEL LIRIANO [id number] [facility] 2023-06-22 00:00:00 2023-06-22 00:00:00 Outpatient PREZARACHEL Hauser [id number] [facility] 2023-04-05 00:00:00 2023-04-05 00:00:00 Outpatient PREZAAnalisa RACHEL LIRIANO [id number] [facility] 2023-03-28 00:00:00 2023-03-28 00:00:00 Outpatient PREZARACHEL Hauser [id number] [facility] 2023-02-25 00:00:00 2023-02-25 00:00:00 Outpatient PREZARACHEL Hauser [id number] [facility] 2022-09-13 00:00:00 2022-09-13 00:00:00 Outpatient PREZARACHEL Hauser [id number] Randee Naqvimichelle 2022-08-26 00:00:00 2022-08-26 00:00:00 Outpatient PREZASRACHEL [id number] Randee Villatoro 2022-08-13 00:00:00 2022-08-13 00:00:00 Outpatient PREZASRACHEL [id number] Randee Naq[facility]le 2022-08-12 09:00:00 2022-08-12 09:00:00 Outpatient HAN LIRIANO [id number] [facility] 2022-08-12 08:15:00 2022-08-12 08:15:00 Outpatient PREZASRACHEL [id number] [facility] 2022-07-22 00:00:00 2022-07-22 00:00:00 Outpatient PREZASRACHEL [id number] [facility] 2022-07-21 00:00:00 2022-07-21 00:00:00 Outpatient PREZASRACHEL [id number] [facility] 2022-07-13 11:00:00 2022-07-13 11:00:00 Outpatient PREZAS, RACHEL LIRIANO [id number] [facility] 2022-07-01 10:00:00 2022-07-01 10:00:00 Outpatient GUIDOLISS [id number] [facility] 2022-02-15 15:01:23 2022-02-15 15:01:23 Outpatient SFA [facility] [id number] 1107 Delonte Jae 2022-01-04 00:00:00 2022-01-04 00:00:00 Outpatient Visit [id number] 2021-12-18 00:00:00 2021-12-18 00:00:00 Outpatient Visit [id number] [id number] 00:00:00 2021-11-26 00:00:00 Outpatient Visit [id number] 2021-11-02 00:00:00 2021-11-02 00:00:00 Outpatient Visit [id number] Results Test Description Test Time Test Comments Results Resul t Comments Source XR Lumbar spine 3 vw 5 19:24:52 HISTORY: S/P fall. FINDINGS: AP, lateral and spot views of the lumbar spines showed 5 lumbarvertebrae with no acute compression fracture or dislocation. Minimalwedge-shaped deformity of T12 is likely chronic, possibly developmental.Last ribs are small size. L4-L5: Disc space is narrowed by more than 60% with vacuum phenomenon inthe posterior portion of the disc material, mild endplate sclerosis,minimal retrolisthesis of L5 over L6 and small osteophytes along theventral vertebral margins. L5-S1: Minimal spondylolisthesis suspected. CONCLUSIONS: 1. No fracture.2. Changes of moderate chronic degenerative disc disease at L4-L5. [facility] XR Hips 2 vw right 5 19:22:24 HISTORY: ?Pain. S/P fall. FINDINGS: AP and lateral views of right hip joint showed no acute fractureor dislocation. No ?aggressive bone lesions seen. Mild changes of arthritisis suspected in the inferomedial aspect of the joint. Deformity along theupper surface of the neck of the femur could be an indirect sign of chronicacetabular impingement. No signs of AVN in the femoral head. CONCLUSIONS: No acute fracture or dislocation in right hip. [facility] CT ABDOMEN PELVIS W CONTRAST 2023-10-11 2 [...] prominent at L4-L5. Soft tissues are grosslyunremarkable. [facility] [id number] 01:46:16* Test Item Value Reference Range Interpretation Comme nts NT-proBNP (test code = 59794-7) <=125 Lab Interpretation (test cod e = 06637-3) Normal [facility] [id number] 01:41:04* Test Item Value Reference Range Interpretation Comme nts TROPONIN I (test code = 1591859381) <=0.034 WILBUR (test code = WILBUR) Reference [...] of biotin. Lab Interpretation (test code = 40115-4) [facility] ([id number])2023-10-31 01:29:25* Test Item Value Reference Range Interpretation Comme nts NA (test code = 1088395773) 140 mmol/L 135-145 K (test code = 9575061640) 4.0 mmol/L 3.5-5.0 CL (test code = 8762824305) 108 mmol/L 98-108 CO2 TOTAL (test code = 1317025868) 24 mmol/L 23-31 AGAP (test code = 1922301665) 8 2-16 BUN (test code = 0298225683) 6 mg/dL 7-23 L GLUCOSE (test code = 0285793973) 106 mg/dL 70-110 CREATININE (test code = 2160-0) 1.00 mg/dL 0.60-1.25 TOTAL BILI (test code = 7778305173) 0.3 mg/dL 0.1-1.1 CALCIUM (test code = 1469798830) 8.1 mg/dL 8.6-10.6 L T PROTEIN (test code = 6040778004) 6.7 g/dL 6.3-8.2 ALBUMIN (test code = 0655100528) 3.9 g/dL 3.5-5.0 ALK PHOS (test code = 8694197457) 108 U/L 34-122 ALTv (test code = 1742-6) 24 U/L 5-50 AST(SGOT) (test code = 2224041624) 27 U/L 13-40 eGFR (test code = 10627-2) 95.8 mL/min/1.73m2 CKD-EPI eGFR (2020). Assuming creatinine has been stable day-to-day for at least three months, the eGFR indicates Category G1 (>= 90 mL/min/1.73 m2) Lab Interpretation (test code = 66949-6) Abnormal [facility] with [id number] 01:14:23* Test Item Value Reference Range Interpretation [...] 34.1 g/dL 31.2-35.0 RDW-SD (test code = 20250-3) 43.6 fL 38.5-51.6 RDW-CV (test code = 788-0) 13.2 % 12.1-15.4 PLT (test code = 777-3) 275 150-328 MPV (test code = 33350-3) 9.4 fL 9.8-13.0 L NRBC/100 WBC (test code = 2579495965) 0.0 0.0-10.0 NRBC x10^3 (test code = 2277491522) See_Comment [Automated messa ge] The system which generated this result transmitted reference range: 10*3/?L. The reference range was not used to interpret this result as normal/abnormal. GRAN MAT (NEUT) % (test code = 770-8) 56.7 % IMM GRAN % (test code = 3980464747) 0.30 % LYMPH % (test code = 736-9) 28.4 % MONO % (test code = 5905-5) 8.7 % EOS % (test code = 713-8) 5.6 % BASO % (test code = 706-2) 0.3 % GRAN MAT x10^3(ANC) (test code = 6824228911) 4.12 10*3/uL 1.99-6.95 IMM GRAN x10^3 (test code = 4451497847) 0.00-0.06 LYMPH x10^3 (test code = 731-0) 2.06 10*3/uL 1.09-3.23 MONO x10^3 (test code = 742-7) 0.63 10*3/uL 0.36-1.02 EOS x10^3 (test code = 711-2) 0.41 10*3/uL 0.06-0.53 BASO x10^3 (test code = 704-7) 0.01-0.09 Lab Interpretation (test code = 65820-3) [facility] [id number] 04:53:13* Test Item Value Reference Range Interpretation Comme nts GLUCOSE (test code = 2217) 94 MG/DL 70-99 BUN (test code = 2207) 12 MG/DL 6-20 CREATININE (test code = 2213) 0.94 MG/DL 0.80-1.40 eGFR (2020 CKD-EPI) (test code = 38519) 104 ML/MIN/1.73 >60 CALC BUN/CREAT (test code [...] 7.1 G/DL 6.1-8.3 ALBUMIN (test code = 2201) 4.4 G/DL 3.5-5.2 CALC GLOBULIN (test code [...] TESTING PERFORMED AT [facility] [address] [place] [address] RAT EXTERMINATOR: DALLAS CALLES M.D. CLIA NUMBER [id number] [place]. [id number] CBC W/AUTO DIFF WITH [id number] 03:21:57* Test Item Value Reference Range Interpretation [...] 0.00-0.10 ABS NUCLEATED RBCS (test code = 60324) 0.00 K/UL 0.00-0.11 Notes Date/Time Note Provider Source 2024-05-16 14:07:59 Pt given printed and verbal discharge instructions regarding fall on same level from slipping, tripping, or stumbling, degeneration of intervertebral disc of lumbar region, acute right-sided low back pain with right-sided sciatica , encouraged hydration, 2 Prescriptions provided Discussed ibuprofen and to take with food to avoid GI distress. Pt verbalized understanding of instructions, pt awake alert oriented, resp reg unlabored, skin w/d, color appropriate for race, moves all ext well,pt encouraged to follow up with pcp Advised to seek medical attention for new/prolonged/worsening of symptoms, Symptoms improved. No adverse reaction to meds given in ER noted upon discharge Awake, alert oriented, resp reg unlabored, skin w/d, pt leaving amb with steady gait, in no apparent distress, MANAGER Paty Tomlin RN [facility] 2024-05-16 12:39:00 Patient came in with complaints of right hip, low back, and right leg pain s/p fall from standing yesterday. States he twisted and turned and landed on his right side. 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 A Loya RN [facility] 2024-05-16 12:33:00 [facility] Emergency Department Note Patient Name: Carlos Alberto Bruce Date of : 1980 43 year old male Treatment Room: [facility] ED [facility] Primary Care Physician: PATIENT DOES NOT HAVE A PCP Patient Escorted by: Self [9] Mode of Arrival: Personal means [1] EMS Treatment Prior to ED Arrival: MATERIAL MIXER treatment: None Travel and Exposure Screening: Symptoms Does patient have any of these symptoms?: (not recorded) Exposure Screening Has patient had contact with someone with a communicable disease in the last month?: (not recorded) Diseases exposed to:: (not recorded) Is Patient ?: (not recorded) Exposure Date: (not recorded) Chief Complaint: Chief Complaint Patient presents with Hip Pain right LOW BACK PAIN Leg Pain right History of Present Illness: This patient relates that he was working in the [employer] bed yesterday when he tripped and fell. The patient relates he fell to his bottom and injured his back. The patient further relates that today he has moderate to severe low back pain and right hip discomfort. Walking increases discomfort and nothing decreases discomfort. The pain does radiate down the back of the right thigh. Patient does not relate bowel or bladder incontinence. History provided by: Patient Past Medical History/Immunizations: No past medical history on file. Tetanus received in last 5 years: Yes Allergies: No Known Allergies Past Social History: Tobacco Use Light Smoker Alcohol Use Yes; 4.0 standard drinks of alcohol per week; 0 Standard drinks or equivalent, 4 Cans of beer. Past Surgical History: No past surgical history on file. Review of Systems: Review of Systems Constitutional: Positive for activity change. Negative for chills and fever. HENT: Negative for ear pain, sinus pressure and sore throat. Eyes: Negative for pain, discharge and itching. Respiratory: Negative for chest tightness. Gastrointestinal: Negative for abdominal pain, constipation, nausea and vomiting. Genitourinary: Negative for bladder incontinence and hematuria. Musculoskeletal: Negative for neck pain and neck stiffness. Physical Exam: ED Triage Vitals [05/16/24 1239] Weight 99.8 kg (220 lb) Actual or estimated Estimated by patient/family report Height 1.803 m (5' 11") BP (!) 158/104 Pulse 85 Resp 15 Temp 36.9 ?C (98.4 ?F) Temp source Oral SpO2 95 % Measured on Room air Physical Exam Constitutional: Appearance: He is obese. HENT: Head: Normocephalic and atraumatic. Mouth/Throat: Pharynx: Oropharynx is clear. No oropharyngeal exudate or posterior oropharyngeal erythema. Eyes: General: No scleral icterus. Right eye: No discharge. Left eye: No discharge. Cardiovascular: Rate and Rhythm: Normal rate and regular rhythm. Pulses: Normal pulses. Heart sounds: Normal heart sounds. Pulmonary: Effort: Pulmonary effort is normal. Breath sounds: Normal breath sounds. Abdominal: General: There is no distension. Palpations: Abdomen is soft. Tenderness: There is no abdominal tenderness. There is no guarding or rebound. Musculoskeletal: General: Tenderness present. Cervical back: No rigidity or tenderness. Comments: There is right hip tenderness and decreased range of motion secondary to pain. There is lumbar right-sided paraspinal tenderness L3-S1. There is positive straight leg raising test on the right as well. The motor function is right lower extremity is 5/5 and distal pulse intact and strong. Skin: General: Skin is warm and dry. Coloration: Skin is not jaundiced or pale. Neurological: General: No focal deficit present. Mental Status: He is alert and oriented to person, place, and time. Motor: No weakness. Radiology: XR Lumbar spine 3 vw Final Result HISTORY: S/P fall. FINDINGS: AP, lateral and spot views of the lumbar spines showed 5 lumbar vertebrae with no acute compression fracture or dislocation. Minimal wedge-shaped deformity of T12 is likely chronic, possibly developmental. Last ribs are small size. L4-L5: Disc space is narrowed by more than 60% with vacuum phenomenon in the posterior portion of the disc material, mild endplate sclerosis, minimal retrolisthesis of L5 over L6 and small osteophytes along the ventral vertebral margins. L5-S1: Minimal spondylolisthesis suspected. CONCLUSIONS: 1. No fracture. 2. Changes of moderate chronic degenerative disc disease at L4-L5. XR Hips 2 vw right Final Result HISTORY: Pain. S/P fall. FINDINGS: AP and lateral views of right hip joint showed no acute fracture or dislocation. No aggressive bone lesions seen. Mild changes of arthritis is suspected in the inferomedial aspect of the joint. Deformity along the upper surface of the neck of the femur could be an indirect sign of chronic acetabular impingement. No signs of AVN in the femoral head. CONCLUSIONS: No acute fracture or dislocation in right hip. Lab Results: Lab Results - No data to display EKG: If EKG completed, see Procedure Note. Orders and Treatments: Orders Placed This Encounter Procedures XR Lumbar spine 3 vw XR Hips 2 vw right Orders Placed This Encounter Medications ketorolac (TORADOL) injection 30 mg methocarbamoL (ROBAXIN) tablet 1,000 mg ibuprofen 600 mg tablet methocarbamoL 750 mg tablet First Provider Eval: ED Events Date/Time Event User Comments 05/16/24 1241 Medical Screening Begins LAMBERT JEWELL DO -- 05/16/24 1241 First Provider Evaluation LAMBERT JEWELL DO -- ED COURSE Diagnosis/Impression as of 05/16/24 1359 Fall on same level from slipping, tripping or stumbling, initial encounter Degeneration of intervertebral disc of lumbar region, unspecified whether pain present Acute right-sided low back pain with right-sided sciatica Procedures: Procedures MDM: Medical Decision Making Patient was evaluated for the complaint of Hip Pain (right), LOW BACK PAIN, and Leg Pain (right) Diagnoses considered but not limited to: Compression Fracture Contusion Degenerative Disc Disease Herniated Disc (acute) Low Back Pain (acute) Sciatica (acute) Sprain (acute) Strain (acute). Labs:were not ordered. Imaging:Ordered, and resulted, any relevant abnormalities were considered. Procedures:were not performed. History, physical exam findings, results of visit, diagnosis, medication regimens and plan of future care have been considered. Additional MDM may be found in the ED course. Vital signs were rechecked before final disposition and determined to be stable. Amount and/or Complexity of Data Reviewed Radiology: ordered. Decision-making details documented in ED Course. Risk Prescription drug management. Flowsheet Documentation: This patient is ambulatory in the emergency department Scoring Tools: No data recorded Disposition/Condition: ED Disposition ED Disposition Discharge Condition Stable Comment -- Discharge Medications: Patient's Medications START taking these medications METHOCARBAMOL 750 MG TABLET Take 1 tablet by mouth 4 (four) times daily. CONTINUE taking these medications which have NOT CHANGED ACETAMINOPHEN-CODEINE (TYLENOL-CODEINE #3) 300-30 MG TABLET Take 1 tablet by mouth every 4 (four) hours as needed for Pain (scale 1-3). CYCLOBENZAPRINE 5 MG TABLET Take 1 tablet by mouth 3 (three) times daily. FUROSEMIDE 20 MG TABLET Take 1 tablet by mouth every morning. START taking Modified Medications as Prescribed Modified Medication Previous Medication IBUPROFEN 600 MG TABLET ibuprofen 600 mg tablet Take 1 tablet by mouth every 8 (eight) hours as needed for Pain (scale 4-6). Take 1 tablet by mouth every 8 (eight) hours as needed for Pain (scale 4-6). STOP taking these medications IBUPROFEN (MOTRIN) 800 MG TABLET Take 800 mg by mouth every 6 (six) hours as needed. Follow-up: Contact information for follow-up Your doctor Electronically signed by: Lambert Jewell DO 05/16/24 9473 [facility] 2024-01-04 15:04:12 Chief Complaint Patient presents with Follow-up Has congestion and runny nose and sore throat since yesterday. Hurt left side at work Anna Valencia LVN [facility] 2023-11-14 11:16:26 Chief Complaint Patient presents with ER F/U ER follow up for chest and stomach pain. .Anna Valencia LVN [facility] 2023-10-30 23:56:24 Pt given printed and verbal [...] to drive him home. Griselda Pierre RN [facility] 2023-10-30 19:39:09 Pt arrives ambulatory to ED c/o abdominal swelling, SOB, a raspy voice & swelling of hands. Pt states this has been going on for about a week. He says he went to [facility] about a week ago when it started and was told nothing was wrong, but he says the symptoms are not improving and he feels like it is worse. Pt states he take gabapentin 600mg 4x a day but reports at times he takes more when he has more pain. Sabrina Clement RN [facility] 10:45:01 Chief Complaint Patient presents with REFILLS-NURSE/MD Mary Jo Han LVN [facility]
[2024-05-23] MEDS ORDERED: LIDOCAINE 1% MPF 5 ML VIAL ONE (15:32)
[2024-05-23] MEDS ORDERED: TDAP (DIPHTH,PERTUSS(ACELL),TET VAC) 0.5 ML VIAL IMVAC ONE (15:33)
--- NOTE | 2024-05-23 15:48 | EDPHYS ---
Physician Documentation [facility] Name: Ameya Muniz Age: 43 yrs Sex: Male : 1980 Arrival Date: 05/23/2024 Time: 12:18 Bed 14 Private MD: ED Physician Sheldon Pichardo HPI: 05/23 16:18 This 43 yrs old Male presents to ER via Ambulatory with complaints of rt Laceration - to left ankle. 16:18 Patient presents to the ED with laceration to the outside of the left ankle, patient rt states that he was sitting down, accidentally ran it over an exposed nail. Denies foreign body, other acute complaints, symptoms are mild in severity, no other aggravating or alleviating factors.. Historical: - Allergies: 12:45 Naproxen; ll1 12:45 tramadol; ll1 - PMHx: 12:45 back problems; nerve pain (back problems); ll1 - PSHx: 12:45 None; ll1 - Immunization history:: Adult Immunizations up to date. - Social history:: Smoking status: Patient reports the use of cigarette tobacco products, denies chronic smoking, but will smoke occasionally. - Family history:: not pertinent. ROS: 16:18 Constitutional: Negative for fever, chills, and weight loss, Cardiovascular: Negative rt for chest pain, palpitations, and edema, Respiratory: Negative for shortness of breath, cough, wheezing, and pleuritic chest pain, Abdomen/GI: Negative for abdominal pain, nausea, vomiting, diarrhea, and constipation, Neuro: Negative for headache, weakness, numbness, tingling, and seizure, 16:18 MS/extremity: Positive for Laceration, negative for deformity, 16:18 Skin: Positive for laceration(s), Exam: 16:18 Constitutional: This is a well developed, well nourished patient who is awake, alert, rt and in no acute distress. Head/Face: Normocephalic, atraumatic. Neuro: Awake and alert, GCS 15, oriented to person, place, time, and situation. Cranial nerves II-XII grossly intact. Motor strength 5/5 in all extremities. Sensory grossly intact. Cerebellar exam normal. Normal gait. 16:18 Musculoskeletal/extremity: Straight laceration just through the dermis overlying the lateral malleolus, no deeper structures appear to be involved, no tendon involvement, exposed bone, foreign body. Vital Signs: 12:46 BP 154 / 98; Pulse 93; Resp 17; Temp 97; Pulse Ox 96% ; Weight 99.79 kg; Height 5 ft. ll1 11 in. ; Pain 7/10; 12:46 Body Mass Index 30.68 (99.79 kg, 180.34 cm) ll1 12:46 Pain Scale: Adult ll1 Laceration: 16:18 Wound Repair of 3cm ( 1.2in ) subcutaneous laceration to left lateral ankle. Linear rt shaped.. Distal neuro/vascular/tendon intact. Anesthesia: Local anesthetic administered with 3 mls of 1% lidocaine. Wound prep: Copious irrigation. Skin closed with 4 3-0 Prolene using simple sutures and sterile technique. Dressed with 4x4's. Patient tolerated well. MDM: 12:47 Medical Screening Exam initiated rt 16:18 Differential Diagnosis Laceration. Data reviewed: vital signs, nurses notes. Test rt considered but Not performed: X-ray: I have very low suspicion for retained foreign body, open fracture, x-rays not indicated. Counseling: I had a detailed discussion with the patient and/or guardian regarding the historical points, exam findings, and any diagnostic results supporting the discharge/admit diagnosis, the need for outpatient follow up. Response to treatment: the patient's symptoms have markedly improved after treatment. 05/23 12:54 Order name: Dressing - Wound; Complete Time: 15:37 rt 05/23 12:54 Order name: Gloves, Sterile; Complete Time: 15:37 rt 05/23 12:54 Order name: Setup Suture Tray; Complete Time: 15:37 rt Administered Medications: 15:37 Drug: Lidocaine Infiltration (1 %) 20 ml 20 ml Infiltration once; to bedside {Note: ld1 Administered by Dr. Pichardo.} Volume: 20 ml; Route: Infiltration; 15:37 Drug: Boostrix Tdap IM 0.5 ml IM once; as a single dose Route: IM; Site: right deltoid; ld1 Disposition Summary: 05/23/24 15:47 Discharge Ordered Notes: Location: Home rt Problem: new rt Symptoms: have improved rt Condition: Stable rt Diagnosis - Laceration to left ankle rt Followup: rt - With: Private Physician - When: 10 - 14 days - Reason: Staple/Suture removal Discharge Instructions: - Discharge Summary Sheet ll1 - Laceration Care, Adult rt Forms: - Work release form ll1 - Medication Reconciliation Form rt - Antibiotic Education rt - Prescription Opioid Use rt - Patient Portal Instructions rt - Leadership Thank You Letter rt Signatures: Alfredo Spann RN RN ll1 Alma Delia Berkowitz RN RN ld1 Sheldon Pichardo MD MD rt
--- NOTE | 2024-05-23 15:48 | ER ---
Nurse's Notes 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 Coronavirus screen: Client denies travel out of the [place] in the last 14 days. At this time, the client does not indicate any symptoms associated with coronavirus-19. Ebola Screen: Patient denies travel to an Ebola-affected area in the 21 days before illness onset. Complicating Factors: There are no complicating factors for this patient. Initial Sepsis Screen: Does the patient meet any 2 criteria? No. Patient's initial sepsis screen is negative. Does the patient have a suspected source of infection? No. Patient's initial sepsis screen is negative. Risk Assessment: Do you want to hurt yourself or someone else? Patient reports no desire to harm self or others. Onset of symptoms was May 23, 2024. 12:46 Method Of Arrival: Ambulatory ll1 12:46 Acuity: AVIVA 3 ll1 Triage Assessment: 12:47 General: Appears uncomfortable, Behavior is calm, cooperative, appropriate for age. ll1 Pain: Complains of pain in L ankle Quality of pain is described as burning, Pain began 1 hour ago. Derm: laceration L ankle. Injury Description: Laceration sustained to L ankle. Historical: - Allergies: 12:45 Naproxen; ll1 12:45 tramadol; ll1 - PMHx: 12:45 back problems; nerve pain (back problems); ll1 - PSHx: 12:45 None; ll1 - Immunization history:: Adult Immunizations up to date. - Social history:: Smoking status: Patient reports the use of cigarette tobacco products, denies chronic smoking, but will smoke occasionally. - Family history:: not pertinent. Screenin:58 [facility] ED Fall Risk Assessment (Adult) History of falling in the last 3 months, ld1 including since admission No falls in past 3 months (0 pts) Confusion or Disorientation No (0 pts) Intoxicated or Sedated No (0 pts) Impaired Gait No (0 pts) Mobility Assist Device Used No (0 pt) Altered Elimination No (0 pt) Score/Fall Risk Level 0 - 2 = Low Risk Oriented to surroundings, Hourly rounding (assess needs \T\ fall precautionary measures) done. Abuse screen: Denies threats or abuse. Denies injuries from another. Nutritional screening: No deficits noted. Tuberculosis screening: No symptoms or risk factors identified. Assessment: 15:29 Reassessment: No changes from previously documented assessment. Patient and/or family ll1 updated on plan of care and expected duration. Pain level reassessed. Patient is alert, oriented x 3, equal unlabored respirations, skin warm/dry/pink. 15:57 Reassessment: Patient appears in no apparent distress at this time. No changes from ld1 previously documented assessment. Patient and/or family updated on plan of care and expected duration. Pain level reassessed. Patient is alert, oriented x 3, equal unlabored respirations, skin warm/dry/pink. General: Appears Behavior is. 15:59 Musculoskeletal: No signs and/or symptoms reported regarding the musculoskeletal system.ld1 Vital Signs: 12:46 BP 154 / 98; Pulse 93; Resp 17; Temp 97; Pulse Ox 96% ; Weight 99.79 kg; Height 5 ft. ll1 11 in. ; Pain 7/10; 12:46 Body Mass Index 30.68 (99.79 kg, 180.34 cm) ll1 12:46 Pain Scale: Adult ll1 ED Course: 12:20 Patient arrived in ED. im 12:22 Sheldon Pichardo MD is Attending Physician. rt 12:47 Triage completed. ll1 12:47 Arm band placed on. ll1 15:29 Patient placed in an exam room, on a stretcher. ll1 15:30 Alma Delia Berkowitz, HAO is Primary Nurse. ld1 15:58 Patient has correct armband on for positive identification. Placed in gown. Bed in low ld1 position. Call light in reach. Side rails up X2. Pulse ox on. NIBP on. Door closed. Noise minimized. Warm blanket given. 15:58 No provider procedures requiring assistance completed. Patient did not have IV access ld1 during this emergency room visit. Administered Medications: 15:37 Drug: Lidocaine Infiltration (1 %) 20 ml 20 ml Infiltration once; to bedside {Note: ld1 Administered by Dr. Pichardo.} Volume: 20 ml; Route: Infiltration; 15:37 Drug: Boostrix Tdap IM 0.5 ml IM once; as a single dose Route: IM; Site: right deltoid; ld1 Medication: 15:59 Vaccine Information Statement (VIS) provided today. Questions and/or concerns ld1 addressed. VIS edition date: May 23, 2024. Outcome: 15:47 Discharge ordered by . rt 15:58 Discharged to home ambulatory, ld1 15:58 Condition: stable 15:58 Discharge instructions given to patient, Instructed on discharge instructions, follow up and referral plans. Demonstrated understanding of instructions, follow-up care, 15:59 Patient left the ED. ld1 Signatures: Alfredo Spann RN RN 1 Alma Delia Berkowitz RN RN ld1 Sheldon Pichardo MD MD rt Lian Belle im
[2024-05-23 17:11] VITALS: BP 154/98; TEMP 97; O2SAT 96
== END 2024-05-23 15:59 | disposition home or self-care (01) ==
LOC: ER 12:18
DX: S91.012A Laceration without foreign body, left ankle, initial encounter (principal); F17.210 Nicotine dependence, cigarettes, uncomplicated
CPT/HCPCS: 96372; 99284; 12002; J2003

== ENCOUNTER 2024-08-04 19:56 | Emergency (ER) | payer OTHER, SELFPAY ==
--- OUTSIDE RECORDS SUMMARY | 2024-08-04 20:02 | XMS REPORT | Continuity of Care Document ---
Author Name Unknown Address [address] [facility] [place] [address] [facility] Address [address] [facility] [place] [address] Care Team Providers Care Flying Ii Instructor Name Role Phone Kalyan Jones Primary Care Physician [phone] SUMI KUMAR Attending Clinician Unavailable CATRINA HORAN Attending Clinician Unavailable Ca, Generic Provider Attending Clinician Unavailable IDALIA CORTES Attending Clinician Unavailable IDALIA CORTES Attending Clinician Unavailable Idalia Cortes MD Attending Clinician [phone] RACHEL MOSS Attending Clinician Unavailable RENETTA MONTEJO Attending Clinician Unavailab le [id number] Attending Clinician Unavailable RENETTA MONTEJO Attending Clinician Unavail able LAMBERT JEWELL Attending Clinician Unavailable LAMBERT JEWELL Attending Clinician Unavailable Lambert Jewell DO Attending Clinician [phone] Ca, Generic Provider Attending Clinician Unavailable SAM DOTY Attending Clinician Unava ilSUKHDEEP Jones Attending Clinician Unavailable SUKHDEEP HOOKS Attending Clinician Unavailable LANIE JOHNSON Attending Clinician Unavailabl e [id number] Attending Clinician Unavailable LISS LORA Attending Clinician Unavailable IDALIA CORTES Admitting Clinician Unavailable LAMBERT JEWELL Admitting Clinician Unavailable SUKHDEEP HOOKS Admitting Clinician Unavailable Payers Payer Name Policy Type Policy Number Effective Date Expirati on Date Source [facility] 9 [id number] 2024 00:00:00 [employer] [facility] NURSE EMERGENCY ROOM 94 ON 9 [id number] 2023 00:00:00 Problems Condition Name Condition Details Condition Category Status Onset Date Resolution Date Last Treatment Date Treating Clinician Comments Source Anxiety Anxiety Disease Active 2-21 00:00: 00 Randee Seybold - Externa l Chest pain Chest pain Disease Active 8- 00:00: 00 Randee Seybold - Externa l Panic attack Panic attack Disease Active 8-05 00:00: 00 Randee Seybold - Externa l Mild major depression Mild major depression Disease Active 4-11 00:00: 00 Randee Seybold - Externa l Well adult exam Well adult exam Disease Active 5-04 00:00: 00 Randee Seybold [...] Date Inactive Date Treating Clinician Comments Source Naproxen Propensi ty to adverse reaction s Active Other - See comments 07-04 00:00: 00 Abdominal pain [facility] Tramadol Propensi ty to adverse reaction s Active Hives - 00:00: 00 [facility] NAPROXEN DRUG INGREDI Active Other-Cmnt - 00:00: 00 [facility] TRAMADOL DRUG INGREDI Active Hives 07-04 00:00: 00 [facility] tramadol Propensi ty to adverse reaction to drug Active 06-29 00:00: 00 Delonte Rowe Nsaids Propensi ty to adverse reaction s Active Hives 05-08 00:00: 00 Randee Villatoro - Externa l Naproxen Propensi ty to adverse reaction s Active Nausea and Vomiting 2013-04 00:00: 00 Randee Villatoro - Externa l Tramadol Propensi ty to adverse reaction s Active Hives 2013-04 00:00: 00 Randee Villatoro - Externa l NO KNOWN ALLERGIE S Drug Class Active [facility] Social History Social Habit Start Date Stop Date Quantity Comments Source Sexual orientation [facility] Gender identity Cherry Villatoro - External History of Occupation Randee Villatoro - External History of tobacco use Cigarette Smoker Randee martinez - External Alcoholic beverage intake 2023-10-30 00:00:00 2023-10-30 00:00:00 .57 /d [facility] History of Social function 2023-10-30 00:00:00 2023-10-30 00:00:00 [facility] Cigarettes smoked current (pack per day) - [...] 2022-04-29 13:08:32 2022-04-29 13:08:32 Male (finding) Randee Pandya Sex assigned at 1980 00:00:00 1980 00:00:00 [facility] Smoking Status Start Date Stop Date Source Occasional tobacco smoker 2023-07-21 00:00:00 Randee Villatoro - External Light tobacco smoker 2015-08-12 00:00:00 [facility] Medications Ordered Medication Name Filled Medication Name Start Date Stop Date Current Medication? Ordering Clinician Indication Dosage Frequency Signature (SIG) Comments Components Source lisinopril 10 mg tablet 07-23 00:00: 00 Yes 1mg Delonte Rowe gabapentin 800 mg tablet 07-23 00:00: 00 Yes 1mg Delonte Rowe lisinopril 10 mg tablet 07-10 00:00: 00 Yes 1mg Delonte Rowe gabapentin 800 mg tablet 07-10 00:00: 00 Yes 1mg Delonte Rowe acetaminoph en-codeine (TYLENOL #3) 300-30 mg tablet 1 tablet 07-04 14:30: 00 07-04 14:42 :00 No 1{tbl} 1 tablet, Oral, ONCE, 1 dose, On Tue07/04/24 at 0930, ARISTEO [facility] acetaminoph en-codeine 300-30 mg tablet 07-04 00:00: 00 07-12 04:59 :00 Yes [id number] 1{tbl} Take 1 tablet by mouth every 4 (four) hours as needed for Pain (scale 4-6) for up to 7 days. Indication s: acute pain [facility] gabapentin 800 mg tablet 06-29 00:00: 00 Yes 1mg Delonte Rowe olanzapine 15 mg tablet 06-27 00:00: 00 Yes mg Delonte Rowe sertraline 50 mg tablet 06-27 00:00: 00 Yes mg Delonte Rowe bupropion HCl XL 150 mg 24 hr tablet, extended release 06-27 00:00: 00 Yes mg Delonte Rowe gabapentin 600 mg tablet 3-10 00:00: 00 Yes mg Delonte Rowe Bupropion HCL XL 150 MG OR TB24 06-01 00:00: 00 Yes [id number] 150mg Take 1 tablet (150 mg total) by mouth every morning. Randee malhotra Olanzapine 7.5 MG oral Tablet 06-01 00:00: 00 Yes [id number] 45{tbl} QD Take 45 tablets by mouth nightly. Radnee malhotra Cyclobenzap rine HCl 5 MG oral Tablet 05-25 00:00: 00 Yes [id number] 5mg Q.[id number] 3D Take 1 tablet (5 mg total) by mouth 3 times daily as needed for muscle spasms. Randee malhotra ketorolac (TORADOL) injection 30 mg 05-16 20:00: 00 05-16 19:29 :00 No 30mg 30 mg, Intramuscu lar, ONCE, 1 dose, On Tue05/16/24 at 1400, [facility] methocarbam oL (ROBAXIN) tablet 1,000 mg 05-16 19:00: 05-16 19:28 :00 No 1000mg 1,000 mg, Oral, ONCE, 1 dose, On Tue05/16/24 at 1300, [facility] ibuprofen 600 mg tablet 05-16 00:00: 00 Yes [id number] 600mg Take 1 tablet by mouth every 8 (eight) hours as needed for Pain (scale 4-6). [facility] Methocarbam ol 750 MG oral Tablet 05-16 00:00: 05-25 00:00 :00 No 750mg Q.25D Take 1 tablet (750 mg total) by mouth 4 times daily. Randee malhotra hydrOXYzine HCl 50 MG oral Tablet 05-10 00:00: 00 Yes 50mg Q.[id number] 3D Take 1 tablet (50 mg total) by mouth every 8 hours as needed. Randee malhotra hydroxyzine HCl 50 mg tablet 05-10 00:00: 00 Yes mg Delonte Rowe Gabapentin 600 MG oral Tablet -06 00:00: 00 Yes [id number] 600mg Q.25D Take 1 tablet (600 mg total) by mouth 4 times daily as needed. Randee malhotra cetirizine 10 mg tablet 04-12 00:00: 00 Yes mg Delonte Rowe sertraline 100 mg tablet 04-12 00:00: 00 Yes mg Delonte Rowe bupropion HCl XL 150 mg 24 hr tablet, extended release 2023-04 00:00: 00 Yes mg Delonte Rowe Sertraline HCl 50 MG oral Tablet 2023-04 00:00: 00 05-25 00:00 :00 No 50mg QD Take 1 tablet (50 mg total) by mouth daily. Randee malhotra Furosemide (LASIX) 20 MG oral Tablet 01-03 15:03: 49 01-03 00:00 :00 No 20mg Take 1 tablet (20 mg total) by mouth every morning. Randee malhotra Cetirizine HCl 10 MG oral Capsule 01-03 00:00: 00 Yes [id number] 10mg QD Take 1 capsule (10 mg total) by mouth daily. Randee malhotra Albuterol HFA 108 (90 Base) MCG/ACT IN AERS 01-03 00:00: 00 Yes [id number] 1{puff} Q.25D Inhale 1 puff into the lungs every 6 hours as needed for wheezing. Randee malhotra Olanzapine 7.5 MG oral Tablet 12-20 00:00: 00 06-01 00:00 :00 No TAKE 1 TABLET BY MOUTH AT BEDTIME FOR MOOD/RACIN G THOUGHT Randee malhotra Bupropion HCL XL 150 MG OR TB24 12-18 00:00: 00 06-01 00:00 :00 No 150mg Take 1 tablet (150 mg total) by mouth every morning. Randee malhotra Furosemide (LASIX) 20 MG oral Tablet 05 11:16: 21 Yes 20mg Take 1 tablet (20 mg total) by mouth every morning. Randee malhotra Gabapentin 600 MG oral Tablet 8 00:00: 00 Yes [id number] 600mg Q.25D Take 1 tablet (600 mg total) by mouth 4 times daily. Randee malhotra Lorazepam 1 MG oral Tablet 11-06 00:00: 00 05-25 00:00 :00 No 1mg QD Take 1 tablet (1 mg total) by mouth daily as needed for anxiety. Randee malhotra iopamidol (ISOVUE 370-500 mL) injection 100 mL 10-30 04:15: 00 10-30 04:15 :00 No [id number] 100mL 100 mL, Intravenou s, ONCE, 1 dose, On 10/30/23 at 2315, Routine [facility] ketorolac (TORADOL) injection 15 mg 10-30 02:30: 00 10-30 01:49 :00 No 15mg 15 mg, Slow IV Push, ONCE, 1 dose, On 10/30/23 at 2130, Routine [facility] furosemide (LASIX) injection 40 mg 10-30 01:45: 00 10-30 01:37 :00 No 40mg 40 mg, IV Push, ONCE, 1 dose, On 10/30/23 at 2045, ARISTEO [facility] furosemide 20 mg tablet 10-29 00:00: 00 Yes [id number] 20mg Take 1 tablet by mouth every morning. [facility] Albuterol HFA 108 (90 Base) MCG/ACT IN AERS 10-25 00:00: 00 01-03 00:00 :00 No INHALE 1 PUFF BY MOUTH EVERY 4 HOURS NEEDED DYSPNEA Randee malhotra predniSONE (DELTASONE) 20 MG oral tablet 10-25 00:00: 00 01-03 00:00 :00 No TAKE 2 TABLETS BY MOUTH EVERY DAY FOR 5 DAYS Randee malhotra gabapentin 300 mg capsule 10-05 00:00: 00 Yes 1mg Delonte F Jae Gabapentin 600 MG oral Tablet 6-20 00:00: 00 Yes [id number] 600mg Take 1 tablet (600 mg total) by mouth 4 times daily. Randee malhotra Ibuprofen (MOTRIN) 600 MG oral Tablet 6-14 00:00: 00 01-03 00:00 :00 No TAKE 1 TABLET BY MOUTH EVERY 8 HOURS NEEDED FOR PAIN. TAKE WITH FOOD AND DRINK PLENTY OF WATER. Randee malhotra Gabapentin 600 MG oral Tablet 5-16 00:00: 00 09-28 00:00 :00 No [id number] 600mg Take 1 tablet (600 mg total) by mouth 3 times daily No driving or drinking alcohol with medication . Randee Cardozo Externa roscoe Sertraline HCl 100 MG oral Tablet -11 00:00: 00 Yes [id number] 100mg QD Take 1 tablet (100 mg total) by mouth daily. Randee Cardozo Externa roscoe Gabapentin 600 MG oral Tablet -11 00:00: 00 Yes [id number] 600mg Take 1 tablet (600 mg total) by mouth 3 times daily No driving or drinking alcohol with medication . Randee Cardozo Externa roscoe Gabapentin 600 MG oral Tablet 3-13 00:00: 00 07-20 00:00 :00 No [id number] 600mg Take 1 tablet (600 mg total) by mouth 3 times daily. Randee Cardozo Externa roscoe Sertraline HCl 100 MG oral Tablet 5-04 00:00: 00 Yes [id number] 100mg Take 1 tablet (100 mg total) by mouth daily Randee malhotra Gabapentin 600 MG oral Tablet 0 5-04 00:00: 00 Yes [id number] 600mg Take 1 tablet (600 mg total) by mouth 3 times daily Randee Méndeza roscoe Gabapentin 600 MG oral Tablet 4-04 00:00: 00 Yes [id number] 600mg Take 1 tablet (600 mg total) by mouth 2 times daily Randee malhotra Sertraline HCl 50 MG oral Tablet -04 00:00: 00 Yes [id number] 50mg Take 1 tablet (50 mg total) by mouth daily Randee malhotra Acetaminoph en-Codeine #3 300-30 MG oral Tablet 3- 00:00: 00 07-13 00:00 :00 No 1{tbl} Take 1 tablet by mouth every 4 to 6 hours as needed for pain Randee Méndeza roscoe Sertraline HCl 50 MG oral Tablet 3 00:00: 00 07-13 00:00 :00 No TAKE 1 TABLET BY MOUTH 1 TIME EACH DAY. Randee Méndeza roscoe Gabapentin 600 MG oral Tablet 1- 00:00: 00 07-13 00:00 :00 No 600mg Take 600 mg by mouth daily Randee malhotra TAKE 1 CAPSULE AT BEDTIME. 1-09 00:00: 00 Yes 300 Delonte Oli Rowe TAKE 1 TABLET BY MOUTH EVERY 6 HOURS NEEDED FOR PAIN 1- 00:00: 00 Yes Delonte Rowe HYDROcodone -Acetaminop [...] No 100 Dose Unknown 11-02 00:00: 00 Yes Delonte Rowe TAKE 1 CAPSULE AT BEDTIME. 11-02 00:00: 00 Yes Delonte Rowe acetaminoph en-codeine (TYLENOL-CO DEINE #3) 300-30 mg tablet 08-27 00:00: 00 07-04 00:00 :00 No [id number] 1{tbl} Take 1 tablet by mouth every 4 (four) hours as needed for Pain (scale 1-3). [facility] cyclobenzap rine 5 mg tablet 11-21 00:00: 00 Yes 5mg Take 1 tablet by mouth 3 (three) times daily. [facility] ibuprofen 600 mg tablet 11-21 00:00: 00 05-16 00:00 :00 No 600mg Take 1 tablet by mouth every 8 (eight) hours as needed for Pain (scale 4-6). [facility] ibuprofen (MOTRIN) 800 mg tablet 08-11 08:21: 38 05-16 00:00 :00 No 800mg Take 800 mg by mouth every 6 (six) hours as needed. [facility] Vital Signs Vital Name Observation Time Observation Value Comments S ource Systolic blood pressure 2024-07-04 16:16:00 167 mm[Hg] [facility] Diastolic blood pressure 2024-07-04 16:16:00 103 mm[Hg] [facility] Heart rate 2024-07-04 16:16:00 75 /min [facility] Body temperature 2024-07-04 16:16:00 36.61 Shreya [facility] Respiratory rate 2024-07-04 16:16:00 16 /min [facility] Oxygen saturation in Arterial blood by Pulse oximetry 2024-07-04 16:16:00 95 /min [facility] Body height 2024-07-04 13:48:00 180.3 cm [facility] Body weight 2024-07-04 13:48:00 108.863 kg [facility] BMI 2024-07-04 13:48:00 33.47 kg/m2 [facility] Systolic blood pressure 2024-06-01 15:00:00 134 mm[Hg] Randee barriga - External Diastolic blood pressure 2024-06-01 15:00:00 82 mm[Hg] Randee Quinno ld - External Heart rate 2024-06-01 15:00:00 76 /min Pierose y Seybold - External Body temperature 2024-06-01 15:00:00 36.61 Shreya Randee Naqviybold - External Respiratory rate 2024-06-01 15:00:00 20 /min Randee Naqviybold - External Body height 2024-06-01 15:00:00 177.8 cm Cherry ey Seybold - External Body weight 2024-06-01 15:00:00 103.93 kg Cherry ey Seybold - External BMI 2024-06-01 15:00:00 32.88 kg/m2 Cherry ey Seybold - External Oxygen saturation in Arterial blood by Pulse oximetry 2024-06-01 15:00:00 98 /min Randee Naqviybo ld - External Systolic blood pressure 2024-05-25 22:37:00 124 mm[Hg] Randee Naqviybo ld - External Diastolic blood pressure 2024-05-25 22:37:00 78 mm[Hg] Randee Naqviybo ld - External Heart rate 2024-05-25 22:37:00 100 /min Gisela williamson Seybold - External Body temperature 2024-05-25 22:37:00 37 Shreya Randee Naqviybold - External Respiratory rate 2024-05-25 22:37:00 20 /min Randee Naqviybold - External Body height 2024-05-25 22:37:00 177.8 cm Cherry ey Seybold - External Body weight 2024-05-25 22:37:00 107.956 kg Cherry ey Seybold - External BMI 2024-05-25 22:37:00 34.15 kg/m2 Cherry ey Seybold - External Oxygen saturation in Arterial blood by Pulse oximetry 2024-05-25 22:37:00 98 /min Randee Naqviybo ld - External Systolic blood pressure 2024-05-16 19:33:56 157 mm[Hg] [facility] Diastolic blood pressure 2024-05-16 19:33:56 96 mm[Hg] [facility] Heart rate 2024-05-16 19:33:56 78 /min [facility] Body temperature 2024-05-16 19:33:56 36.89 Shreya [facility] Respiratory rate 2024-05-16 19:33:56 18 /min [facility] Oxygen saturation in Arterial blood by Pulse oximetry 2024-05-16 19:33:56 96 /min [facility] Body height 2024-05-16 18:39:00 180.3 cm [facility] Body weight 2024-05-16 18:39:00 99.791 kg [facility] BMI 2024-05-16 18:39:00 30.68 kg/m2 [facility] Systolic blood pressure 2024-01-04 19:55:00 134 mm[Hg] Randee Seybo ld - External Diastolic blood pressure 2024-01-04 19:55:00 78 mm[Hg] Randee Seybo ld - External Heart rate 2024-01-04 19:55:00 88 /min Kelse y Seybold - External Body temperature 2024-01-04 19:55:00 36.61 Shreya Randee Seybold - External Respiratory rate 2024-01-04 19:55:00 18 /min Randee Naqviybold - External Body height 2024-01-04 19:55:00 177.8 cm Cherry ey Seybold - External Body weight 2024-01-04 19:55:00 111.131 kg Cherry ey Seybold - External BMI 2024-01-04 19:55:00 35.15 kg/m2 Cherry ey Seybold - External Oxygen saturation in Arterial blood by Pulse oximetry 2024-01-04 19:55:00 98 /min Randee Seybo ld - External Systolic blood pressure 2023-11-14 16:05:00 138 mm[Hg] Randee Seybo ld - External Diastolic blood pressure 2023-11-14 16:05:00 82 mm[Hg] Randee Seybo ld - External Heart rate 2023-11-14 16:05:00 98 /min Kelse y Seybold - External Body temperature 2023-11-14 16:05:00 36.89 Shreya Randee Seybold - External Respiratory rate 2023-11-14 16:05:00 20 /min Randee Seybold - External Body height 2023-11-14 16:05:00 177.8 cm Cherry ey Seybold - External Body weight 2023-11-14 16:05:00 103.874 kg Cherry ey Seybold - External BMI 2023-11-14 16:05:00 32.86 kg/m2 Cherry ey Seybold - External Oxygen saturation in Arterial blood by Pulse oximetry 2023-11-14 16:05:00 98 /min Randee Naqviybo ld - External Systolic blood pressure 2023-10-31 04:00:00 123 mm[Hg] [facility] Diastolic blood pressure 2023-10-31 04:00:00 63 mm[Hg] [facility] Heart rate 2023-10-31 04:00:00 80 /min [facility] Body temperature 2023-10-31 04:00:00 37.06 Shreya [facility] Respiratory rate 2023-10-31 04:00:00 10 /min [facility] Oxygen saturation in Arterial blood by Pulse oximetry 2023-10-31 04:00:00 98 /min [facility] Body weight 2023-10-31 01:05:00 114.306 kg [facility] BMI 2023-10-31 01:05:00 35.15 kg/m2 [facility] Body height 2023-10-31 00:46:00 180.3 cm [facility] Systolic blood pressure 2023-07-21 15:41:00 138 mm[Hg] Randee Naqviybo ld - External Diastolic blood pressure 2023-07-21 15:41:00 84 mm[Hg] Randee Seybo ld - External Heart rate 2023-07-21 15:41:00 84 /min Kel y Seybold - External Body temperature 2023-07-21 [...] Pulse oximetry 2023-07-21 15:41:00 98 /min Randee Quinno ld - External Systolic blood pressure 2022-08-12 [...] Pulse oximetry 2022-08-12 13:02:00 98 /min Randee Quinno ld - External Systolic blood pressure 2022-07-13 14:49:00 168 mm[Hg] Randee Naqviybo ld - External Diastolic blood pressure 2022-07-13 [...] Randee López ld - External BP Systolic 2024-07-23 09:46:00 165 mm[Hg] Step hen F Jae BP Diastolic 2024-07-23 09:46:00 105 mm[Hg] Anthony phen F Jae Weight Measured 2024-07-23 09:46:00 236.40 pounds Delonte F Jae Height Measured 2024-07-23 09:46:00 71.00 inches Delonte F Jae Body Temperature 2024-07-23 09:46:00 98.60 degrees Delonte F Jae Heart Rate 2024-07-23 09:46:00 69.00 /min Esmer en F Jae Respiratory Rate 2024-07-23 09:46:00 19.00 /min Delonte F Jae BP Systolic 2024-07-10 14:11:00 149 mm[Hg] Step hen F Jae BP Diastolic 2024-07-10 14:11:00 111 mm[Hg] Anthony phen F Jae Weight Measured 2024-07-10 14:11:00 234.80 pounds Delonte F Jae Height Measured 2024-07-10 14:11:00 71.00 inches Delonte F Jae Body Temperature 2024-07-10 14:11:00 97.50 degrees Delonte F Jae Heart Rate 2024-07-10 14:11:00 104.00 /min Step hen F Jae Respiratory Rate 2024-07-10 14:11:00 18.00 /min Delonte F Jae BP Systolic 2024-06-29 15:25:00 135 mm[Hg] Step hen F Jae BP Diastolic 2024-06-29 15:25:00 88 mm[Hg] Anthony phen F Jae Weight Measured 2024-06-29 15:25:00 240.40 pounds Delonte F Jae Height Measured 2024-06-29 15:25:00 71.00 inches Delonte F Jae Body Temperature 2024-06-29 15:25:00 99.10 degrees Delonte F Aje Heart Rate 2024-06-29 15:25:00 78.00 /min Esmer en F Jae Respiratory Rate 2024-06-29 15:25:00 Delonte F Jae Heart Rate 2023-09-27 15:44:00 Esmer en F [...] Height Measured 2021-11-02 08:21:00 71.00 inches Delonte F Jae Body Temperature 2021-11-02 08:21:00 98.20 degrees Delonte Rowe Heart Rate 2021-11-02 08:21:00 75.00 /min Esmer Rowe Respiratory Rate 2021-11-02 08:21:00 18.00 /min Delonte Rowe Procedures Procedure Date / Time Performed Performing Clinician Source XR ANKLE 3+ VW LEFT 2024-07-04 14:48:08 Jesika Cortes [facility] XR FOOT 3+ VW LEFT 2024-07-04 14:48:08 Idalia Cortes [facility] XR LUMBAR SPINE 3 VW 2024-05-16 19:19:32 Jesusita Jewell [facility] XR HIPS 2 VW RIGHT 2024-05-16 19:19:32 Lambert Jewell [facility] CT ABDOMEN PELVIS W CONTRAST 2023-10-31 03:17:31 Singer [facility] URINE DRUG (IMMUNOASSAY) - COMPREHENSIVE DRUG SCREEN 2023-10-31 03:08:00 Singer [facility] TROPONIN I 2023-10-31 01:03:[address] [facility] COMP. METABOLIC PANEL (08015) 2023-10-31 01:03:00 Singer Sukhdeep [facility] ETHANOL 2023-10-31 01:03:[address] [facility] CBC WITH DIFF 2023-10-31 01:03:00 Sukhdeep Hooks [facility] URINALYSIS 2023-10-31 01:03:[address] [facility] INFLUENZA A/B RSV COVID NAAT 2023-10-31 01:03:00 Singer [facility] N-TERMINAL PRO-BNP 2023-10-31 01:03:00 Singer [facility] Plan of Care Planned Activity Planned Date Details Comments Source Goal Plan of Care Note [code = 96932-8] Goal Plan of Care Note [code = 50606-9] Goal Plan of Care Note [code = 32780-0] Goal Plan of Care Note [code = 42458-5] Goal Plan of Care Note [code = 70013-3] Goal Plan of Care Note [code = 70323-5] Goal Plan of Care Note [code = 58083-3] Goal Plan of Care Note [code = 05370-7] Goal Plan of Care Note [code = 29527-6] Goal Plan of Care Note [code = 51208-5] Goal Plan of Care Note [code = 56321-3] Goal Plan of Care Note [code = 06474-3] Goal Plan of Care Note [code = 52505-6] Goal Plan of Care Note [code = 01048-9] Goal Plan of Care Note [code = 29002-1] Goal Plan of Care Note [code = 12979-1] Goal Plan of Care Note [code = 31385-6] Goal Plan of Care Note [code = 99214-0] Goal Plan of Care Note [code = 86575-5] Goal Plan of Care Note [code = 73365-2] Goal Plan of Care Note [code = 35319-7] Goal Plan of Care Note [code = 48191-2] Goal Plan of Care Note [code = 45344-4] Goal Plan of Care Note [code = 74959-9] Goal Plan of Care Note [code = 54560-9] Goal Plan of Care Note [code = 42845-4] Goal Plan of Care Note [code = 87681-4] Goal Plan of Care Note [code = 99901-2] Encounters Start Date/Time End Date/Time Encounter Type Admission Type Attending [facility] Care Department Encounter ID Source 2024 09:30:00 2024 09:30:00 Outpatient SUMI KUMAR [id number] [facility] 2024-07-31 00:00:00 2024-07-31 00:00:00 Outpatient CATRINA HORAN [id number] Randee Villatoro 2024-07-23 09:39:55 2024-07-23 09:39:55 Outpatient SFA SFA [id number] Delonte Rowe 2024-07-23 00:00:00 2024-07-23 00:00:00 Outpatient Visit SFA [id number] Delonte Rowe 2024-07-11 00:00:00 2024-07-11 10:11:00 Letter (Out) Campaigns, Generic Provider Campaigns, Generic Provider [facility] (JADE [id number] [facility] 2024-07-10 00:00:00 2024-07-10 00:00:[address] [facility] [id number] Delonte Rowe 2024-07-09 00:00:00 2024-07-09 00:00:00 Outpatient CATRINA HORAN [id number] Randee Villatoro 2024-07-04 08:51:00 2024-07-04 11:19:00 Emergency X IDALIA CORTES [facility] [id number] [facility] 2024-07-04 08:51:00 2024-07-04 11:19:00 Emergency Idalia Cortes [facility] [id number] [facility] 2024-06-29 15:16:46 2024-06-29 15:16:46 Outpatient SFA SFA [id number] Delonte Rowe 2024-06-29 00:00:00 2024-06-29 00:00:[address] [facility] [id number] Delonte Rowe 2024-06-27 00:00:00 2024-06-27 00:00:00 Outpatient RACHEL MOSS [id number] [facility] Vill[facility] 2024-06-22 00:00:00 2024-06-22 00:00:00 Outpatient CATRINA HORAN [id number] Randee Villatoro 2024-06-20 00:00:00 2024-06-20 00:00:00 Outpatient HORAN, CATRINA LIRIANO RANDEE [id number] [facility]ee [facility] 2024-06-19 00:00:00 2024-06-19 00:00:00 Outpatient HROAN, CATRINA LIRIANO RANDEE [id number] [facility] 2024-06-18 00:00:00 2024-06-18 00:00:00 Outpatient HORANCATRINA PLUMMER RANDEE [id number] [facility] 2024-06-16 00:00:00 2024-06-16 00:00:00 Outpatient RENETTA MONTEJO RANDEE [id number] [facility] [facility] 2024-06-08 00:00:00 2024-06-08 00:00:00 Outpatient HORAN, CATRINA LIRIANO RANDEE [id number] [facility] 2024-06-01 09:45:00 2024-06-01 09:45:00 Outpatient PGI616Yuliana LIRIANO [id number] [facility] 2024-06-01 09:00:00 2024-06-01 09:00:00 Outpatient HORAN, CATRINA LIRIANO RANDEE [id number] [facility] 2024-06-01 00:00:00 2024-06-01 00:00:00 Outpatient HORAN, CATRINA RANDEE RANDEE [id number] [facility] 2024-06-01 00:00:00 2024-06-01 00:00:00 Outpatient RANDEE RANDEE [id number] [facility] 2024-05-30 00:00:00 2024-05-30 00:00:00 Outpatient RENETTA MONTEJO RANDEE LIRIANO [id number] [facility] 2024-05-25 16:30:00 2024-05-25 16:30:00 Outpatient HORANCATRINA PLUMMER RANDEE LIRIANO [id number] [facility] 2024-05-25 08:30:00 2024-05-25 08:30:00 Outpatient RENETTA MONTEJO RANDEE LIRIANO [id number] [facility] 2024-05-23 00:00:00 2024-05-23 10:50:01 Letter (Out) Campaigns, Generic Provider Campaigns, Generic Provider [facility] 1.2.840.114 350.1.13.10 4.2.7.2.686 [id number] [facility] 2024-05-21 11:00:00 2024-05-21 11:00:00 Outpatient CATRINA HORAN RANDEE LIRIANO [id number] [facility] 2024-05-16 12:46:00 2024-05-16 14:09:00 Emergency X LYNDON LAMBERT REYES VAEZEKIEL ERT [id number] [facility] 2024-05-16 12:46:00 2024-05-16 14:09:00 Emergency Lambert Jewell [facility] [id number] 350.1.13.10 4.2.7.2.686 [id number] [facility] 2024-05-11 09:00:00 2024-05-11 09:00:00 Outpatient RENETTA MONTEJO [id number] [facility] 2024-04-14 00:00:00 2024-04-14 00:00:00 Outpatient RENETTA MONTEJO [id number] [facility] 2024-03-22 00:00:00 2024-03-22 00:00:00 Outpatient RENETTA MONTEJO [id number] [facility] 2024-03-22 00:00:00 2024-03-22 00:00:00 Outpatient RENETTA MONTEJO [id number] [facility] 2024-03-21 00:00:00 2024-03-21 00:00:00 Outpatient RENETTA MONTEJO [id number] [facility] 2024-03-16 00:00:00 2024-03-16 00:00:00 Outpatient RACHEL MOSS [id number] [facility] 2024-03-15 00:00:00 2024-03-15 00:00:00 Outpatient RENETTA MONTEJO [id number] [facility] 2024-02-03 00:00:00 2024-02-03 00:00:00 Outpatient RENETTA MONTEJO [id number] [facility] 2024-01-12 00:00:00 2024-01-12 00:00:00 Outpatient RENETTA MONTEJO [id number] [facility] 2024-01-12 00:00:00 2024-01-12 00:00:00 Outpatient RENETTA MONTEJO [id number] [facility] 2024-01-09 00:00:00 2024-01-09 00:00:00 Outpatient RENETTA MONTEJO [id number] [facility] 2024-01-04 15:00:00 2024-01-04 15:00:00 Outpatient RENETTA MONTEJO [id number] [facility] 2023-12-15 10:00:00 2023-12-15 10:00:00 Outpatient RENETTA MONTEJO [id number] [facility] 2023-11-14 11:30:00 2023-11-14 11:30:00 Outpatient RENETTA MONTEJO [id number] [facility] 2023-11-14 00:00:00 2023-11-14 00:00:00 Outpatient RANDEE LIRIANO [id number] [facility] 2023-11-14 00:00:00 2023-11-14 00:00:00 Outpatient RENETTA MONTEJO [id number] [facility] 2023-11-10 00:00:00 2023-11-10 00:00:00 Outpatient RENETTA MONTEJO [id number] [facility] 2023-11-09 00:00:00 2023-11-09 10:47:00 Letter (Out) Ca, Generic Provider [facility] 1.2.840.114 350.1.13.10 4.2.7.2.686 [id number] [facility] 2023-11-03 11:15:2023-11-03 11:15:00 Outpatient SAM DOTY RANDEE [id number] [facility] 2023-11-03 00:00:00 2023-11-03 00:00:00 Outpatient SAM DOTY RANDEE [id number] [facility] 2023-11-03 00:00:00 2023-11-03 00:00:00 Outpatient RENETTA MONTEJOVASILIY LIRIANO [id number] [facility] 2023-10-30 19:51:00 2023-10-31 00:01:00 Emergency X HOOKS SUKHDEEP RODRIGUEZ ERT [id number] [facility] 2023-10-30 19:51:00 2023-10-31 00:01:[address] [facility] 1.2.840.114 350.1.13.10 4.2.7.2.686 [id number] [facility] 2023-10-20 00:00:00 2023-10-20 00:00:00 Outpatient RENETTA MONTEJO RANDEE [id number] [facility] 2023-10-06 00:00:00 2023-10-06 00:00:00 Outpatient KIMNELSONLANIE Rai RANDEE LIRIANO [id number] [facility] 2023-10-06 00:00:00 2023-10-06 00:00:00 Outpatient RENETTA MONTEJO RANDEE LIRIANO [id number] [facility] 2023-09-29 14:30:00 2023-09-29 14:30:00 Outpatient RENETTA MONTEJO RANDEE LIRIANO [id number] [facility] 2023-09-27 16:44:17 2023-09-27 16:44:17 Outpatient SFA SFA [id number] Delonte Rowe 2023-09-27 00:00:00 2023-09-27 00:00:00 Outpatient Visit SFA [id number] Delonte Rowe 2023-09-13 00:00:00 2023-09-13 00:00:00 Outpatient RENETTA MONTEJO RANDEE [id number] [facility] 2023-08-25 00:00:00 2023-08-25 00:00:00 Outpatient RENETTA MONTEJO RANDEE [id number] [facility] 2023-07-28 00:00:00 2023-07-28 00:00:00 Outpatient RENETTA MONTEJO RANDEE [id number] [facility] 2023-07-21 11:00:00 2023-07-21 11:00:00 Outpatient NIKIA, RENETTA LIRIANO RANDEE [id number] [facility] 2023-07-21 00:00:00 2023-07-21 00:00:00 Outpatient PREZAS, RACHEL LIRIANO RANDEE [id number] [facility] 2023-06-22 00:00:00 2023-06-22 00:00:00 Outpatient PREZAS, RACHEL RANDEE LIRIANO [id number] [facility] 2023-04-05 00:00:00 2023-04-05 00:00:00 Outpatient PREZAS, RACHEL RANDEE LIRIANO [id number] [facility] 2023-03-28 00:00:00 2023-03-28 00:00:00 Outpatient PREZAS, RACHEL RANDEE LIRIANO [id number] [facility] 2023-02-25 00:00:00 2023-02-25 00:00:00 Outpatient PREZAS, RACHEL RANDEE LIRIANO [id number] [facility] 2022-09-13 00:00:00 2022-09-13 00:00:00 Outpatient PREZAS, RACHEL RANDEE LIRIANO [id number] [facility] 2022-08-26 00:00:00 2022-08-26 00:00:00 Outpatient PREZAS, RACHEL RANDEE LIRIANO [id number] [facility] 2022-08-13 00:00:00 2022-08-13 00:00:00 Outpatient PREZAS, RACHEL RANDEE LIRIANO [id number] [facility] 2022-08-12 09:00:00 2022-08-12 09:00:00 Outpatient HAN LIRIANO [id number] [facility] 2022-08-12 08:15:00 2022-08-12 08:15:00 Outpatient PRERACHEL GILL [id number] [facility] 2022-07-22 00:00:00 2022-07-22 00:00:00 Outpatient PREZARACHEL Hauser [id number] [facility] 2022-07-21 00:00:00 2022-07-21 00:00:00 Outpatient PREZARACHEL Hauser [id number] [facility] 2022-07-13 11:00:00 2022-07-13 11:00:00 Outpatient PRERACHEL GILL [id number] [facility] 2022-07-01 10:00:00 2022-07-01 10:00:00 Outpatient GUIDOLISS [id number] [facility] 2022-02-15 15:01:23 2022-02-15 15:01:[address] [facility] [id number] Delonte F Jae 2022-01-04 00:00:00 2022-01-04 00:00:00 Outpatient Visit [id number] 2021-12-18 00:00:00 2021-12-18 00:00:00 Outpatient Visit [id number] [id number] 00:00:00 2021-11-26 00:00:00 Outpatient Visit [id number] 2021-11-02 00:00:00 2021-11-02 00:00:00 Outpatient Visit [id number] Results Test Description Test Time Test Comments Results Resul t Comments Source XR Ankle 3+ vw left 2024-06-10 6 14:53:11 HISTORY: ?Pain. FINDINGS: AP, lateral, oblique views of left ankle showed joint effusion,moderate soft tissue swelling along the anterior and lateral aspects.Multiple bone fragments are seen adjacent to the tip of lateral malleolus,near the tip of the medial malleolus and along the lateral surface of thecalcaneum. These findings are likely secondary to remote fractures. Milddegenerative changes are seen in the anterior/medial portions of tibiotalarjoint. Prominent bone outgrowth noted on the anterior surface of the talus justdistal to the tibiotalar articulation with a small loose body in thevicinity, likely secondary to degenerative arthritis/chronic impingement.No definite heel spur. CONCLUSIONS: No acute fracture or dislocation in left ankle. [facility] XR Foot 3+ vw left 2024-06-10 6 14:49:42 HISTORY: ?Pain. Possible fracture. FINDINGS: AP, lateral, oblique views of left foot showed no acute fractureor dislocation. Soft tissue swelling along the lateral aspect of thehindfoot noted. CONCLUSIONS: No acute fracture or dislocation in left foot. [facility] XR Lumbar spine 3 vw 5 19:24:52 [...] moderate chronic degenerative disc disease at L4-L5. [facility] XR Hips 2 vw right 0 5 19:22:24 HISTORY: ?Pain. S/P fall. FINDINGS: [...] acute fracture or dislocation in right hip. [facility] CT ABDOMEN PELVIS W CONTRAST 2023-10-11 2 [...] prominent at L4-L5. Soft tissues are grosslyunremarkable. [facility] L[facility]-Xxt3470-31-22 01:46:16* Test Item Value Reference Range Interpretation Comme nts NT-proBNP (test code = 24178-2) <=125 Lab Interpretation (test cod e = 52541-1) [facility] [id number] 01:41:04* Test Item Value Reference Range Interpretation Comme nts TROPONIN I (test code = 3556591586) <=0.034 WILBUR (test code = WILBUR) Reference [...] of biotin. Lab Interpretation (test code = 23348-1) Normal [facility]. Metabolic Panel (16569)2023-10-31 01:29:25* Test Item Value Reference Range Interpretation Comme nts NA (test code = 7563280328) 140 mmol/L 135-145 K (test code = 1474918401) 4.0 mmol/L 3.5-5.0 CL (test code = 3798794009) 108 mmol/L 98-108 CO2 TOTAL (test code = 8026006795) 24 mmol/L 23-31 AGAP (test code = 2371673902) 8 2-16 BUN (test code = 9709586854) 6 mg/dL 7-23 L GLUCOSE (test code = 6986978935) 106 mg/dL 70-110 CREATININE (test code = 2160-0) 1.00 mg/dL 0.60-1.25 TOTAL BILI (test code = 8007932736) 0.3 mg/dL 0.1-1.1 CALCIUM (test code = 0162220184) 8.1 mg/dL 8.6-10.6 L T PROTEIN (test code = 1408804664) 6.7 g/dL 6.3-8.2 ALBUMIN (test code = 6837274356) 3.9 g/dL 3.5-5.0 ALK PHOS (test code = 7024030172) 108 U/L 34-122 ALTv (test code = 1742-6) 24 U/L 5-50 AST(SGOT) (test code = 4448896011) 27 U/L 13-40 eGFR (test code = 99541-6) 95.8 mL/min/1.73m2 CKD-EPI eGFR (2020). Assuming creatinine has been stable day-to-day for at least three months, the eGFR indicates Category G1 (>= 90 mL/min/1.73 m2) Lab Interpretation (test code = 76423-8) Abnormal [facility] with Tpis2503-18-03 01:14:23* Test Item Value Reference Range Interpretation [...] 34.1 g/dL 31.2-35.0 RDW-SD (test code = 93911-5) 43.6 fL 38.5-51.6 RDW-CV (test code = 788-0) 13.2 % 12.1-15.4 PLT (test code = 777-3) 275 150-328 MPV (test code = 71587-0) 9.4 fL 9.8-13.0 L NRBC/100 WBC (test code = 2515537675) 0.0 0.0-10.0 NRBC x10^3 (test code = 2210094621) See_Comment [Automated messa ge] The system which generated this result transmitted reference range: 10*3/?L. The reference range was not used to interpret this result as normal/abnormal. GRAN MAT (NEUT) % (test code = 770-8) 56.7 % IMM GRAN % (test code = 9494004912) 0.30 % LYMPH % (test code = 736-9) 28.4 % MONO % (test code = 5905-5) 8.7 % EOS % (test code = 713-8) 5.6 % BASO % (test code = 706-2) 0.3 % GRAN MAT x10^3(ANC) (test code = 5740069283) 4.12 10*3/uL 1.99-6.95 IMM GRAN x10^3 (test code = 4393314682) 0.00-0.06 LYMPH x10^3 (test code = 731-0) 2.06 10*3/uL 1.09-3.23 MONO x10^3 (test code = 742-7) 0.63 10*3/uL 0.36-1.02 EOS x10^3 (test code = 711-2) 0.41 10*3/uL 0.06-0.53 BASO x10^3 (test code = 704-7) 0.01-0.09 Lab Interpretation (test code = 35696-8) [facility]normal [facility] [id number] 04:53:13* Test Item Value Reference Range Interpretation Comme nts GLUCOSE (test code = 2217) 94 MG/DL 70-99 BUN (test code = 2207) 12 MG/DL 6-20 CREATININE (test code = 4) 0.94 MG/DL 0.80-1.40 eGFR (2020 CKD-EPI) (test code = 23836) 104 ML/MIN/1.73 >60 CALC BUN/CREAT (test code [...] 7.1 G/DL 6.1-8.3 ALBUMIN (test code = 1) 4.4 G/DL 3.5-5.2 CALC GLOBULIN (test code [...] TESTING PERFORMED AT [facility] [address] [place] [address] PRODUCT SCIENTIST: DALLAS CALLES M.D. IA NUMBER [id number] [facility] [place]. [id number] CBC W/AUTO DIFF WITH [id number] 03:21:57* Test Item Value Reference Range Interpretation [...] 0.00-0.10 ABS NUCLEATED RBCS (test code = 65050) 0.00 K/UL 0.00-0.11 CBC W/AUTO [id number] 00:00:00* Test Item Value Reference Range Interpretation Comme nts WBC (test code = 1001) 9.0 K/UL RBC (test code = 1002) 4.45 M/UL HEMOGLOBIN (test code = 1003) 13.6 G/DL HEMATOCRIT (test code = 1004) 39.7 % MCV (test code = 1005) 89.2 fL MCH (test code = 1006) 30.6 PG MCHC (test code = 1007) 34.3 G/DL RDW (test code = 1038) 13.3 % NEUTROPHILS (test code = 1008) 62.2 % LYMPHOCYTES (test code = 1010) 23.8 % MONOCYTES (test code = 1011) 9.4 % EOSINOPHILS (test code = 1012) 3.9 % BASOPHILS (test code = 1013) 0.3 % IMMATURE GRANULOCYTES (test code = 1036) 0.4 % NUCLEATED RBCS (test code = 1065) 0.0 /100WBC'S PLATELET COUNT (test code = 1015) 355 K/UL ABSOLUTE NEUTROPHILS (test c ode = 1066) 5.57 K/UL ABSOLUTE LYMPHOCYTES (test c ode = 1067) 2.13 K/UL ABSOLUTE MONOCYTES (test cod e = 1068) 0.84 K/UL ABSOLUTE EOSINOPHILS (test c ode = 1040) 0.35 K/UL ABSOLUTE BASOPHILS (test cod e = 1069) 0.03 K/UL ABS IMMATURE GRANULOCYTES (t est code = 1020) 0.04 K/UL ABS NUCLEATED RBCS (test cod e = 03344) 0.00 K/UL Delonte F AustinCOMPREHENSIVE METABOLIC [id number] 00:00:00* Test Item Value Reference Range Interpretation Comme nts GLUCOSE (test code = 2217) 94 MG/DL BUN (test code = 2208) 12 MG/DL CREATININE (test code = 2214) 0.94 MG/DL eGFR (2020 CKD-EPI) (test code = 87372) 104 ML/MIN/1.73 CALC BUN/CREAT (test code = 2235) 13 RATIO SODIUM (test code = 2231) 141 MEQ/L POTASSIUM (test code = 2228) 4.2 MEQ/L CHLORIDE (test code = 2215) 102 MEQ/L CARBON DIOXIDE (test code = 2206) 27 MEQ/L CALCIUM (test code = 2209) 9.4 MG/DL PROTEIN, TOTAL (test code = 2229) 7.1 G/DL ALBUMIN (test code = 2201) 4.4 G/DL CALC GLOBULIN (test code = 2240) 2.7 G/DL CALC A/G RATIO (test code = 2234) 1.6 RATIO BILIRUBIN, TOTAL (test code = 2207) 0.4 MG/DL ALKALINE PHOSPHATASE (test code = 2204) 133 U/L AST (test code = 2218) 21 U/L ALT (test code = 2219) 20 U/L [facility] [id number] 00:00:00* Test Item Value Reference Range Interpretation Comme nts WBC (test code = 1001) 9.0 K/UL RBC (test code = 1002) 4.45 M/UL HEMOGLOBIN (test code = 1003) 13.6 G/DL HEMATOCRIT (test code = 1004) 39.7 % MCV (test code = 1005) 89.2 fL MCH (test code = 1006) 30.6 PG MCHC (test code = 1007) 34.3 G/DL RDW (test code = 1038) 13.3 % NEUTROPHILS (test code = 1008) 62.2 % LYMPHOCYTES (test code = 1010) 23.8 % MONOCYTES (test code = 1011) 9.4 % EOSINOPHILS (test code = 1012) 3.9 % BASOPHILS (test code = 1013) 0.3 % IMMATURE GRANULOCYTES (test code = 1036) 0.4 % NUCLEATED RBCS (test code = 1065) 0.0 /100WBC'S PLATELET COUNT (test code = 1015) 355 K/UL ABSOLUTE NEUTROPHILS (test c ode = 1066) 5.57 K/UL ABSOLUTE LYMPHOCYTES (test c ode = 1067) 2.13 K/UL ABSOLUTE MONOCYTES (test cod e = 1068) 0.84 K/UL ABSOLUTE EOSINOPHILS (test c ode = 1040) 0.35 K/UL ABSOLUTE BASOPHILS (test cod e = 1069) 0.03 K/UL ABS IMMATURE GRANULOCYTES (t est code = 1020) 0.04 K/UL ABS NUCLEATED RBCS (test cod e = 19852) 0.00 K/UL Delonte RoweCOMPREHENSIVE METABOLIC [id number] 00:00:00* Test Item Value Reference Range Interpretation Comme nts GLUCOSE (test code = 2217) 94 MG/DL BUN (test code = 2208) 12 MG/DL CREATININE (test code = 2214) 0.94 MG/DL eGFR (2020 CKD-EPI) (test code = 86605) 104 ML/MIN/1.73 CALC BUN/CREAT (test code = 2235) 13 RATIO SODIUM (test code = 2231) 141 MEQ/L POTASSIUM (test code = 2228) 4.2 MEQ/L CHLORIDE (test code = 2215) 102 MEQ/L CARBON DIOXIDE (test code = 2206) 27 MEQ/L CALCIUM (test code = 2209) 9.4 MG/DL PROTEIN, TOTAL (test code = 2229) 7.1 G/DL ALBUMIN (test code = 2201) 4.4 G/DL CALC GLOBULIN (test code = 2240) 2.7 G/DL CALC A/G RATIO (test code = 2234) 1.6 RATIO BILIRUBIN, TOTAL (test code = 2207) 0.4 MG/DL ALKALINE PHOSPHATASE (test code = 2204) 133 U/L AST (test code = 2218) 21 U/L ALT (test code = 2219) 20 U/L Delonte RoweCBC W/AUTO [id number] 00:00:00* Test Item Value Reference Range Interpretation Comme nts WBC (test code = 1001) 9.0 K/UL RBC (test code = 1002) 4.45 M/UL HEMOGLOBIN (test code = 1003) 13.6 G/DL HEMATOCRIT (test code = 1004) 39.7 % MCV (test code = 1005) 89.2 fL MCH (test code = 1006) 30.6 PG MCHC (test code = 1007) 34.3 G/DL RDW (test code = 1038) 13.3 % NEUTROPHILS (test code = 1008) 62.2 % LYMPHOCYTES (test code = 1010) 23.8 % MONOCYTES (test code = 1011) 9.4 % EOSINOPHILS (test code = 1012) 3.9 % BASOPHILS (test code = 1013) 0.3 % IMMATURE GRANULOCYTES (test code = 1036) 0.4 % NUCLEATED RBCS (test code = 1065) 0.0 /100WBC'S PLATELET COUNT (test code = 1015) 355 K/UL ABSOLUTE NEUTROPHILS (test c ode = 1066) 5.57 K/UL ABSOLUTE LYMPHOCYTES (test c ode = 1067) 2.13 K/UL ABSOLUTE MONOCYTES (test cod e = 1068) 0.84 K/UL ABSOLUTE EOSINOPHILS (test c ode = 1040) 0.35 K/UL ABSOLUTE BASOPHILS (test cod e = 1069) 0.03 K/UL ABS IMMATURE GRANULOCYTES (t est code = 1020) 0.04 K/UL ABS NUCLEATED RBCS (test cod e = 28638) 0.00 K/UL Delonte RoweCOMPREHENSIVE METABOLIC [id number] 00:00:00* Test Item Value Reference Range Interpretation Comme nts GLUCOSE (test code = 2217) 94 MG/DL BUN (test code = 2208) 12 MG/DL CREATININE (test code = 2214) 0.94 MG/DL eGFR (2020 CKD-EPI) (test code = 45226) 104 ML/MIN/1.73 CALC BUN/CREAT (test code = 2235) 13 RATIO SODIUM (test code = 2231) 141 MEQ/L POTASSIUM (test code = 2228) 4.2 MEQ/L CHLORIDE (test code = 2215) 102 MEQ/L CARBON DIOXIDE (test code = 2206) 27 MEQ/L CALCIUM (test code = 2209) 9.4 MG/DL PROTEIN, TOTAL (test code = 2229) 7.1 G/DL ALBUMIN (test code = 2201) 4.4 G/DL CALC GLOBULIN (test code = 2240) 2.7 G/DL CALC A/G RATIO (test code = 2234) 1.6 RATIO BILIRUBIN, TOTAL (test code = 2207) 0.4 MG/DL ALKALINE PHOSPHATASE (test code = 2204) 133 U/L AST (test code = 2218) 21 U/L ALT (test code = 2219) 20 U/L Delonte Rowe Notes Date/Time Note Provider Source Delonte Rowe [facility]2025-04-01 00:00:00 Delonte Delvalle [place] 211625-03-26 11:17:46 Pt given printed and verbal discharge instructions regarding acute left ankle pain and sprain, encouraged hydration. Prescriptions provided. Discussed ibuprofen and to take with food to avoid GI distress. Discussed rotation with tylenol for pain control. Discussed tylenol #3 side affects and to avoid driving/operating machinery/or engaging in activities requiring alertness while taking. Pt verbalized understanding of instructions, pt awake alert oriented, resp reg unlabored, skin w/d, color appropriate for race, moves all ext well, pt encouraged to follow up with pcp. Advised to seek medical attention for new/prolonged/worsening of symptoms. Symptoms addressed. No adverse reaction to meds given in ER noted upon discharge. Pt leaving amb with steady gait, in no apparent distress. Left on crutches. T Mariah Carrillo [facility] 08:46:43 Pt states he twisted his left ankle going up steps fell landed on buttocks while carrying lupe material 2 days ago. No meds taken today. [facility]2025-03-21 00:00:00 Delonte Rowe [facility]2025-02-21 09:03:50 Chief Complaint Patient presents with Physical Fasting for labs Anna Valencia [facility]N [facility] Clinic[facility]middt2323-[facility] 16:41:56 Chief Complaint Patient presents with ER F/U Fell off a ladder 05/16/24 Anna Valencia LVN S MANAGER Katerin Lqqdot1004-18-41 14:07:59 Pt given printed and verbal discharge [...] with steady gait, in no apparent distress, A Tomlin [facility] MountainQqrlqa3916-49-66 12:39:00 Patient came in with complaints of right hip, low back, and right leg pain s/p fall from standing yesterday. States he twisted and turned and landed on his right side. 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 A Loya [facility] MountainTurktc5255-61-54 12:33:00 [facility] Emergency Department Note Patient Name: Ameya Bruce Date of : 1980 43 year old male Treatment Room: [facility] ED [facility] Primary Care Physician: PATIENT DOES NOT HAVE A PCP Patient Escorted by: Self [9] Mode of Arrival: Personal means [1] EMS Treatment Prior to ED Arrival: RETAIL SUPPORT MANAGER treatment: None Travel and Exposure Screening: Symptoms [...] relates that he was working in the [employer] bed yesterday when he tripped and fell. [...] Electronically signed by: Lambert Jewell DO 05/16/24 1109 S MANAGER [facility]61 15:04:12 Chief Complaint Patient presents with Follow-up Has congestion and runny nose and sore throat since yesterday. Hurt left side at work Anna Valencia LVN T [facility]2024-08-05 11:16:26 Chief Complaint Patient presents with ER F/U ER follow up for chest and stomach pain. .Anna Valencia LVN T [facility]2024-07-21 23:56:24 Pt given printed and verbal discharge [...] family to drive him home. Griselda Pierre RNGuernsey Memorial [id number] 19:39:09 Pt arrives ambulatory to ED c/o abdominal swelling, SOB, a raspy voice & swelling of hands. Pt states this has been going on for about a week. He says he went to [facility] about a week ago when it started and was told nothing was wrong, but he says the symptoms are not improving and he feels like it is worse. Pt states he take gabapentin 600mg 4x a day but reports at times he takes more when he has more pain. Sabrina Clement RNGuernsey Memorial HospitalGypkdl5632-03-01 00:00:00 [facility] 10:45:01 Chief Complaint Patient presents with REFILLS-NURSE/MD Mary Jo Han LVN [facility]
--- NOTE | 2024-08-04 20:18 | EDPHYS ---
Physician Documentation [facility] Name: Ameya Muniz Age: 43 yrs Sex: Male : 1980 Arrival Date: 08/04/2024 Time: 19:56 Bed IW4 Private MD: Matt Rapp ED Physician Sheldon Pichardo HPI: 08/04 21:42 This 43 yrs old Male presents to ER via Ambulatory with complaints of rt Headache, High Blood Pressure. 21:42 Patient states that he has been under a lot of stress recently, states he was recently rt diagnosed with hypertension, reports that he has been having some palpitations during that time. The patient states that he is here to get his blood pressure checked. Denies other acute complaints at this time, symptoms are mild in severity, no other aggravating or alleviating factors.. Historical: - Allergies: 20:14 Naproxen; cm10 20:14 tramadol; cm10 - PMHx: 20:14 back problems; nerve pain (back problems); Hypertensive disorder; Hypercholesterolemia; cm10 - Immunization history:: Adult Immunizations up to date. - Infectious Disease History:: Denies. - Social history:: Smoking status: Patient reports the use of cigarette tobacco products, denies chronic smoking, but will smoke occasionally. - Family history:: not pertinent. ROS: 21:42 Constitutional: Negative for fever, chills, and weight loss, Respiratory: Negative for rt shortness of breath, cough, wheezing, and pleuritic chest pain, Abdomen/GI: Negative for abdominal pain, nausea, vomiting, diarrhea, and constipation, MS/Extremity: Negative for injury and deformity, Skin: Negative for injury, rash, and discoloration, 21:42 Cardiovascular: Positive for palpitations, Negative for chest pain, Exam: 21:42 Constitutional: This is a well developed, well nourished patient who is awake, alert, rt and in no acute distress. Head/Face: Normocephalic, atraumatic. Chest/axilla: Normal chest wall appearance and motion. Nontender with no deformity. No lesions are appreciated. Cardiovascular: Regular rate and rhythm with a normal S1 and S2. No gallops, murmurs, or rubs. Normal PMI, no JVD. No pulse deficits. Respiratory: Lungs have equal breath sounds bilaterally, clear to auscultation and percussion. No rales, rhonchi or wheezes noted. No increased work of breathing, no retractions or nasal flaring. Abdomen/GI: Soft, non-tender, with normal bowel sounds. No distension or tympany. No guarding or rebound. No evidence of tenderness throughout. Skin: Warm, dry with normal turgor. Normal color with no rashes, no lesions, and no evidence of cellulitis. MS/ Extremity: Pulses equal, no cyanosis. Neurovascular intact. Full, normal range of motion. Vital Signs: 20:12 BP 115 / 71; Pulse 92; Resp 15; Temp 98.9(O); Pulse Ox 94% on R/A; Weight 99.79 kg; cm10 Height 5 ft. 11 in. ; Pain 7/10; 20:12 Body Mass Index 30.68 (99.79 kg, 180.34 cm) cm10 20:12 Pain Scale: Adult cm10 MDM: 20:14 Medical Screening Exam initiated rt 21:42 Differential diagnosis: Palpitations, anxiety, dysrhythmia. Data reviewed: vital signs, rt nurses notes. ED course: I evaluated the patient, but his blood pressure returned at normal, the patient stated that he did not wish to have any further workup performed in the emergency department. Stated that I recommend that he at a minimum get an EKG and further evaluation, he still declines this, he has decision-making capacity and understands risk of leaving, understands that he may return anytime if he changes mind or develops worsening symptoms.. Administered Medications: No medications were administered Disposition Summary: 08/04/24 20:17 Discharge Ordered Notes: Location: Home rt Problem: new rt Symptoms: have improved rt Condition: Stable rt Diagnosis - Acute stress response rt Followup: rt - With: Matt Rapp DO - When: 2 - 3 days - Reason: Discharge Instructions: - Discharge Summary Sheet rt - Managing Anxiety, Adult rt Forms: - Medication Reconciliation Form rt - Antibiotic Education rt - Prescription Opioid Use rt - Patient Portal Instructions rt - Leadership Thank You Letter rt Signatures: Sheldon Pichardo MD MD rt Janneth Price RN RN cm10
--- NOTE | 2024-08-04 20:18 | ER ---
Nurse's Notes [facility] Name: Ameya Muniz Age: 43 yrs Sex: Male : 1980 Arrival Date: 08/04/2024 Time: 19:56 Bed IW4 Private MD: Matt Rapp Diagnosis: Acute stress response Presentation: 08/04 20:12 Chief complaint: Patient states: No sleep the last 3 days. Pt states, "I think its my cm10 blood pressure." Pt also reports headache. Pt states that he is feeling palpitations. Coronavirus screen: Client denies travel out of the [place] in the last 14 days. Ebola Screen: Patient denies travel to an Ebola-affected area in the 21 days before illness onset. Initial Sepsis Screen: Does the patient meet any 2 criteria? HR > 90 bpm. Does the patient have a suspected source of infection? No. Patient's initial sepsis screen is negative. Risk Assessment: Do you want to hurt yourself or someone else? Patient reports no desire to harm self or others. Onset of symptoms was August 04, 2024. 20:12 Method Of Arrival: Ambulatory cm10 20:12 Acuity: AVIVA 3 cm10 Triage Assessment: 20:14 Headache History: Denies prior headaches. General: Appears in no apparent distress. cm10 uncomfortable, Behavior is calm, cooperative. Pain: Complains of pain in head Pain currently is 7 out of 10 on a pain scale. Quality of pain is described as pressure, Pain began suddenly, Also complains of no other associated symptoms. Neuro: No deficits noted. Level of Consciousness is awake, alert, obeys commands, Oriented to person, place, time, situation, Appropriate for age. Cardiovascular: Reports palpitations. Respiratory: No deficits noted. Airway is patent Respiratory effort is even, unlabored, Respiratory pattern is regular, symmetrical. Historical: - Allergies: 20:14 Naproxen; cm10 20:14 tramadol; cm10 - PMHx: 20:14 back problems; nerve pain (back problems); Hypertensive disorder; Hypercholesterolemia; cm10 - Immunization history:: Adult Immunizations up to date. - Infectious Disease History:: Denies. - Social history:: Smoking status: Patient reports the use of cigarette tobacco products, denies chronic smoking, but will smoke occasionally. - Family history:: not pertinent. Screenin:16 [facility] ED Fall Risk Assessment (Adult) History of falling in the last 3 months, cm10 including since admission No falls in past 3 months (0 pts) Confusion or Disorientation No (0 pts) Intoxicated or Sedated No (0 pts) Impaired Gait No (0 pts) Mobility Assist Device Used No (0 pt) Altered Elimination No (0 pt) Score/Fall Risk Level 0 - 2 = Low Risk Oriented to surroundings, Maintained a safe environment, Hourly rounding (assess needs \\T\\ fall precautionary measures) done. Abuse screen: Denies threats or abuse. Denies injuries from another. Nutritional screening: No deficits noted. Tuberculosis screening: No symptoms or risk factors identified. Assessment: 20:15 Reassessment: Dr. Pichardo seeing patient in triage. Pt reports to provider that he cm10 just wanted his blood pressure checked and since his pressure looks fine he would like to go home. Dr. Pichardo speaking with patient about doing EKG and labs and patient declined. Vital Signs: 20:12 BP 115 / 71; Pulse 92; Resp 15; Temp 98.9(O); Pulse Ox 94% on R/A; Weight 99.79 kg; cm10 Height 5 ft. 11 in. ; Pain 7/10; 20:12 Body Mass Index 30.68 (99.79 kg, 180.34 cm) cm10 20:12 Pain Scale: Adult cm10 ED Course: 19:59 Patient arrived in ED. gm2 19:59 Matt Rapp DO is Private Physician. gm2 19:59 Sheldon Pichardo MD is Attending Physician. rt 20:14 Triage completed. cm10 20:14 Arm band placed on right wrist. Patient placed in waiting room. cm10 20:16 Matt Rapp DO is Referral Physician. rt 20:17 Patient has correct armband on for positive identification. Provided Education on: cm10 follow-up instructions. 20:17 No provider procedures requiring assistance completed. Patient did not have IV access cm10 during this emergency room visit. Administered Medications: No medications were administered Medication: 20:16 VIS not applicable for this client. cm10 Outcome: 20:17 Discharge ordered by MD. rt 20:20 Discharged to home ambulatory, cm10 20:20 Condition: good 20:20 Discharge instructions given to patient, Instructed on discharge instructions, follow up and referral plans. Demonstrated understanding of instructions, follow-up care, 20:21 Patient left the ED. cm10 Signatures: Sheldon Pichardo MD MD rt Janneth Price RN RN cm10 [facility]
[2024-08-06 21:57] VITALS: BP 115/71; TEMP 98.9; O2SAT 94
== END 2024-08-04 20:21 | disposition home or self-care (01) ==
LOC: ER 19:56
DX: F43.0 Acute stress reaction (principal); I10 Essential (primary) hypertension
CPT/HCPCS: 99282

== ENCOUNTER 2025-02-07 14:14 | Emergency (ER) | payer SELFPAY ==
[2025-02-07] MEDS ORDERED: LABETALOL 20 MG/4ML SYRINGE IV ONE (15:05)
[2025-02-07] MEDS ORDERED: ONDANSETRON 4 MG/2 ML VIAL ONE (15:05)
[2025-02-07] MEDS ORDERED: HYDROMORPHONE HCL 1 MG/ML INJ ONE (15:05)
[2025-02-07 15:08] LABS: Absolute Lymphocytes (CBC) 1.8 K/uL (0.7-4.9); Hematocrit 41.9 % (39.6-49.0); Hemoglobin 14.4 g/dL (13.6-17.9); MCH 31.3 pg (27.0-35.0); MCHC 34.4 g/dL (32.0-36.0); MCV 91.0 fL (80-100); MPV 8.0 fL (7.6-11.3); Nucleated RBC Absolute Count 0.0 (0-0); Nucleated Red Blood Cells % 0.0 % (0-0); RBC Red Blood Cell Count 4.60 M/uL (4.33-5.43); White Blood Count 9.70 thou/uL (4.3-10.9)
[2025-02-07 15:16] LABS: PT Prothrombin Time 14.0 SECONDS (10-13.0); Protime INR 1.25
--- NOTE | 2025-02-07 15:28 | RAD REPORT ---
EXAMINATION: CT LUMBAR SPINE WITHOUT CONTRAST CLINICAL INDICATION: Male, 44 years old. trauma TECHNIQUE: Axial CT images were obtained through the lumbar spine in soft tissue and bone windows wit hout intravenous contrast. Coronal and Sagittal reformatted images were created from the data set. One or more of the following dose reduction techniques were used: Automated exposure control, adjustm ent of the mA and/ or kV according to patient size, and/or iterative reconstruction. Unless otherwise specified, incidental findings do not require dedicated imaging follow-up. COMPARISON: No prior exam. FINDINGS: For purposes of this dictation, it is assumed that there are 5 non rib-bearing lumbar type vertebrae, and the most caudal fully segmented lumbar vertebra is labeled L5. ALIGNMENT: 3 mm degenerative retrolisthesis of L4 on 5. Mild anterolisthesis L5 on S1 with bilateral chronic bilateral spondylolysis. BONES: No significant soft tissue abnormalities. No aggressive osseous lesions. DISCS: Vacuum disc degeneration at L4-5. Disc herniation suspected also at L5-S1. SOFT TISSUE: No soft tissue abnormalities. IMPRESSION: No acute lumbar spine abnormalities. Suspected moderate to large disc herniation L5-S1. Chronic bilateral spondylolysis at L5 on S1 with mild anterolisthesis. Moderate lower lumbar degenerative change as detailed.
[2025-02-07 15:33] LABS: ALT/SGPT 68 U/L (16-61); AST/SGOT 56 U/L (15-37); Albumin 3.5 g/dL (3.4-5.0); Albumin/Globulin Ratio 0.9 (1.1-1.8); Alkaline Phosphatase 124 U/L (45-117); Anion Gap 11.5 mEq/L (5.0-15.0); BUN Blood Urea Nitrogen 4 mg/dL (7-18); Globulin 3.8 g/dL (2.3-3.5); Glucose Level 107 mg/dL (74-106); Potassium 3.5 mEq/L (3.5-5.1); Troponin High Sensitivity 4.7 pg/mL (<58.9)
[2025-02-07 15:49] LABS: Bilirubin Indirect, Calculated 0.3 mg/dL (0.2-0.8)
--- NOTE | 2025-02-07 15:56 | EDPHYS ---
Physician Documentation [facility] Name: Ameya Muniz Age: 44 yrs Sex: Male : 1980 Arrival Date: 02/07/2025 Time: 14:14 Bed 15 Private MD: ED Physician Abdiel Alaniz HPI: 02/07 14:49 This 44 yrs old Male presents to ER via Ambulatory with complaints of Back sp3 Pain. 14:49 44-year-old male with history of chronic back pain, lumbar disc disease, hypertension, sp3 now presents with recurrent lumbar pain after slipping and falling while moving furniture 2 days ago. He states he has some radiculopathy down left greater than right leg as well as low back pain. He denies any anterior abdominal pain, history of AAA or aortic pathology, or any other similar symptoms. He states his doctor took him off his blood pressure medication secondary to his blood pressure being equivocal so he has not been on any of those medications for 2 months. Review of systems negative for headache, neck pain, chest pain, shortness of breath, abdominal pain, upper back pain, syncope, near syncope, bleeding, or any other signs or symptoms on ROS at this time.. Historical: - Allergies: 14:38 Naproxen; ap3 14:38 tramadol; ap3 - PMHx: 14:38 back problems; Hypercholesterolemia; Hypertensive disorder; nerve pain (back problems); ap3 - Immunization history:: Flu vaccine is not up to date. - Infectious Disease History:: Denies. - Social history:: Smoking status: Patient reports the use of cigarette tobacco products, denies chronic smoking, but will smoke occasionally, Patient uses alcohol, occasionally. ROS: 14:50 Constitutional: Negative for fever, chills, and weight loss, Eyes: Negative for injury, sp3 pain, redness, and discharge, Neck: Negative for injury, pain, and swelling, Cardiovascular: Negative for chest pain, palpitations, and edema, Respiratory: Negative for shortness of breath, cough, wheezing, and pleuritic chest pain, Abdomen/GI: Negative for abdominal pain, nausea, vomiting, diarrhea, and constipation, Skin: Negative for injury, rash, and discoloration, Neuro: Negative for headache, weakness, numbness, tingling, and seizure, Psych: Negative for depression, anxiety, suicide ideation, homicidal ideation, and hallucinations, Allergy/Immunology: Negative for hives, rash, and allergies, Endocrine: Negative for neck swelling, polydipsia, polyuria, polyphagia, and marked weight changes, Hematologic/Lymphatic: Negative for swollen nodes, abnormal bleeding, and unusual bruising, 14:50 All other systems are negative, Exam: 14:50 Constitutional: This is a well developed, well nourished patient who is awake, alert, sp3 and in no acute distress. Head/Face: Normocephalic, atraumatic. Eyes: Pupils equal round and reactive to light, extra-ocular motions intact. Lids and lashes normal. Conjunctiva and sclera are non-icteric and not injected. Cornea within normal limits. Periorbital areas with no swelling, redness, or edema. Neck: Trachea midline, no thyromegaly or masses palpated, and no cervical lymphadenopathy. Supple, full range of motion without nuchal rigidity, or vertebral point tenderness. No Meningismus. Chest/axilla: Normal chest wall appearance and motion. Nontender with no deformity. No lesions are appreciated. Cardiovascular: Regular rate and rhythm with a normal S1 and S2. No gallops, murmurs, or rubs. Normal PMI, no JVD. No pulse deficits. Respiratory: Lungs have equal breath sounds bilaterally, clear to auscultation and percussion. No rales, rhonchi or wheezes noted. No increased work of breathing, no retractions or nasal flaring. Abdomen/GI: Soft, non-tender, with normal bowel sounds. No distension or tympany. No guarding or rebound. No evidence of tenderness throughout. Skin: Warm, dry with normal turgor. Normal color with no rashes, no lesions, and no evidence of cellulitis. Neuro: Awake and alert, GCS 15, oriented to person, place, time, and situation. Cranial nerves II-XII grossly intact. Motor strength 5/5 in all extremities. Sensory grossly intact. Cerebellar exam normal. Normal gait. Psych: Awake, alert, with orientation to person, place and time. Behavior, mood, and affect are within normal limits. 14:50 Back: Mild pain to palpation lower back. Positive pain on straight leg raise left lower extremity. Blood pressure at 170/122 but he states it has been as high before and he has not taken medication for 2 months. He said it fluctuates., 15:53 ECG was reviewed by the Attending Physician. EKG demonstrating sinus rhythm at 85 bpm sp3 with normal intervals, normal QRS, normal axis and nonspecific diffuse ST/T changes without evidence of acute ischemia. Vital Signs: 14:36 Temp 98.2; Weight 108.86 kg; Height 5 ft. 11 in. ; Pain 10/10; ap3 14:38 BP 170 / 122; Pulse 94; Resp 19; Temp 98.3; Pulse Ox 98% on R/A; Weight 111.13 kg; rg5 Height 5 ft. 11 in. ; Pain 10/10; 14:45 BP 163 / 113; Pulse 95; Resp 18; Pulse Ox 95% ; rg5 15:50 BP 148 / 103; Pulse 84; Resp 18; Pulse Ox 95% ; Pain 2/10; rg5 16:30 BP 145 / 92; Pulse 83; Resp 18; Pulse Ox 98% ; Pain 2/10; rg5 14:38 Body Mass Index 34.17 (111.13 kg, 180.34 cm) rg5 14:36 Pain Scale: Adult ap3 14:38 Pain Scale: Adult rg5 15:50 Pain Scale: Adult rg5 16:30 Pain Scale: Adult rg5 MDM: 14:39 Medical Screening Exam initiated sp3 14:52 Data reviewed: vital signs, nurses notes, lab test result(s), EKG, radiologic studies. sp3 ED course: 44-year-old male with PMH above now with low back pain secondary to fall 2 days ago. Differential diagnosis includes low back contusion versus low back sprain versus fracture versus lumbar disc disease exacerbation. Current high blood pressure likely secondary to pain versus essential hypertension and not being on medication. I am not highly suspicious for AAA, vascular pathology, ACS, or any other critical pathology at this time. Workup will include lumbar sacral CT scan, general labs including troponin, EKG and treatment with labetalol 10 mg IV, Dilaudid 1 mg IV, and ondansetron 4 mg IV.. 15:55 ED course: Patient with suspected disc herniation which is known. Remainder of workup sp3 negative. No acute findings. Will safely discharge patient home on p.o. tramadol and follow-up with his PCP. Blood pressure now down to 140 systolic.. 02/07 14:48 Order name: Basic Metabolic Panel; Complete Time: 15:52 sp3 02/07 14:48 Order name: CBC with Diff; Complete Time: 15:33 sp3 02/07 14:48 Order name: LFT's; Complete Time: 15:52 sp3 02/07 14:48 Order name: PT-INR; Complete Time: 15:33 sp3 02/07 14:48 Order name: Troponin HS; Complete Time: 15:52 sp3 02/07 14:48 Order name: CT Lumbar Spine Wo Con; Complete Time: 15:33 sp3 02/07 14:48 Order name: EKG; Complete Time: 14:48 sp3 02/07 14:48 Order name: Cardiac monitoring; Complete Time: 15:08 sp3 02/07 14:48 Order name: EKG - Nurse/Tech; Complete Time: 15:54 sp3 02/07 14:48 Order name: IV Saline Lock; Complete Time: 15:01 sp3 02/07 14:48 Order name: Labs collected and sent; Complete Time: 15:01 sp3 02/07 14:48 Order name: O2 Sat Monitoring; Complete Time: 15:01 sp3 Administered Medications: 15:08 Drug: HYDROmorphone IVP 1 mg IVP once Route: IVP; Site: right wrist; rg5 15:54 Follow up: Response: No adverse reaction; Pain is decreased rg5 15:08 Drug: Ondansetron IVP 4 mg IVP once; over 2 minutes Route: IVP; Site: right wrist; rg5 15:54 Follow up: Response: No adverse reaction; Pain is decreased rg5 15:37 Drug: Labetalol IV 10 mg IV at calculated rate once Route: IV; Rate: calculated rate; rg5 Site: right antecubital; 16:00 Follow up: IV Status: Completed infusion; IV Intake: 10ml rg5 Disposition Summary: 02/07/25 15:56 Discharge Ordered Notes: Location: Home sp3 Condition: Stable sp3 Diagnosis - Lumbar strain, lumbar radiculopathy, lumbar contusion, hypertension sp3 Followup: sp3 - With: Private Physician - When: Upon discharge from the Emergency Department - Reason: Continuance of care Discharge Instructions: - Discharge Summary Sheet sp3 - Lumbosacral Radiculopathy sp3 - Lumbar Sprain sp3 Forms: - Medication Reconciliation Form sp3 - Antibiotic Education sp3 - Prescription Opioid Use sp3 - Patient Portal Instructions sp3 - Leadership Thank You Letter sp3 Prescriptions: - Diclofenac Sodium 75 mg Oral Tablet Sustained Release - take 1 tablet ORAL route 2 times per day; 30 tablet; Refills: 0, Product sp3 Selection Permitted - Medrol (Khang) 4 mg Oral Tablets, Dose Pack - take 1 tablet ORAL route as directed - follow package instructions; 1 packet; sp3 Refills: 0, Product Selection Permitted Signatures: Dispatcher [employer] EDMS Sabrina Ordonez, RN RN ap3 Abdiel Alaniz MD MD sp3 Josh Dye RN RN rg5 Corrections: (The following items were deleted from the chart) 14:49 14:48 BASIC METABOLIC PANEL+C.LAB.BRZ ordered. EDMS EDMS 14:49 14:48 CBC+H.LAB.BRZ ordered. EDMS EDMS 14:49 14:48 HEPATIC FUNCTION+C.LAB.BRZ ordered. EDMS EDMS 14:49 14:48 PROTIME (+INR)+COAG.LAB.BRZ ordered. EDMS EDMS 14:49 14:48 Troponin High Sensitivity+C.LAB.BRZ ordered. EDMS EDMS
--- NOTE | 2025-02-07 15:56 | ER ---
Nurse's Notes [facility] Name: Ameya Muniz Age: 44 yrs Sex: Male : 1980 Arrival Date: 02/07/2025 Time: 14:14 Bed 15 Private MD: Diagnosis: Lumbar strain, lumbar radiculopathy, lumbar contusion, hypertension Presentation: 02/07 14:36 Chief complaint: Patient states: he fell on his tailbone 2 days ago, and is having ap3 continued lower back pain of which he rates a 10/10 on the pain scale. patient reports normal urine and bowel habits. Coronavirus screen: At this time, the client does not indicate any symptoms associated with coronavirus-19. Ebola Screen: No symptoms or risks identified at this time. Risk Assessment: Do you want to hurt yourself or someone else? Patient reports no desire to harm self or others. Onset of symptoms was February 05, 2025. 14:36 Method Of Arrival: Ambulatory ap3 14:36 Acuity: AVIVA 4 ap3 Triage Assessment: 14:38 General: Appears in no apparent distress. Behavior is calm, cooperative, appropriate ap3 for age. Pain: Complains of pain in low back area Pain currently is 10 out of 10 on a pain scale. Pain began 2-3 days ago. Neuro: Level of Consciousness is awake, alert, obeys commands, Oriented to person, place, time, situation, Appropriate for age. Cardiovascular: Patient's skin is warm and dry. Respiratory: Airway is patent Respiratory effort is even, unlabored, Respiratory pattern is regular, symmetrical. Historical: - Allergies: 14:38 Naproxen; ap3 14:38 tramadol; ap3 - PMHx: 14:38 back problems; Hypercholesterolemia; Hypertensive disorder; nerve pain (back problems); ap3 - Immunization history:: Flu vaccine is not up to date. - Infectious Disease History:: Denies. - Social history:: Smoking status: Patient reports the use of cigarette tobacco products, denies chronic smoking, but will smoke occasionally, Patient uses alcohol, occasionally. Screenin:39 [facility] ED Fall Risk Assessment (Adult) History of falling in the last 3 months, ap3 including since admission Yes- single mechanical fall (1 pt) Confusion or Disorientation No (0 pts) Intoxicated or Sedated No (0 pts) Impaired Gait No (0 pts) Mobility Assist Device Used No (0 pt) Altered Elimination No (0 pt) Score/Fall Risk Level 0 - 2 = Low Risk Oriented to surroundings, Maintained a safe environment, Educated pt \T\ family on fall prevention, incl call for assistance when getting out of bed, Assessed \T\ reinforced patient's understanding of fall precautions, Hourly rounding (assess needs \T\ fall precautionary measures) done, Used ambulatory aids as needed (educated on \T\ assisted with). Abuse screen: Denies threats or abuse. Nutritional screening: No deficits noted. Tuberculosis screening: No symptoms or risk factors identified. Assessment: 14:39 General: Appears uncomfortable, Behavior is calm, cooperative, appropriate for age. rg5 Pain: Complains of pain in back. Neuro: Level of Consciousness is awake, alert, obeys commands, Oriented to person, place, time, situation. Cardiovascular: Denies chest pain, Patient's skin is warm and dry. Respiratory: Airway is patent Trachea midline Respiratory effort is even, unlabored, Respiratory pattern is regular, symmetrical. GI: Abdomen is round non-distended. : No signs and/or symptoms were reported regarding the genitourinary system. Derm: Skin is intact, Skin is dry, Skin is normal. Musculoskeletal: Circulation, motion, and sensation intact. Range of motion:. 15:40 Reassessment: Patient and/or family updated on plan of care and expected duration. Pain rg5 level reassessed. Patient is alert, oriented x 3, equal unlabored respirations, skin warm/dry/pink. Patient states feeling better. Patient states symptoms have improved. Vital Signs: 14:36 Temp 98.2; Weight 108.86 kg; Height 5 ft. 11 in. ; Pain 10/10; ap3 14:38 BP 170 / 122; Pulse 94; Resp 19; Temp 98.3; Pulse Ox 98% on R/A; Weight 111.13 kg; rg5 Height 5 ft. 11 in. ; Pain 10/10; 14:45 BP 163 / 113; Pulse 95; Resp 18; Pulse Ox 95% ; rg5 15:50 BP 148 / 103; Pulse 84; Resp 18; Pulse Ox 95% ; Pain 2/10; rg5 16:30 BP 145 / 92; Pulse 83; Resp 18; Pulse Ox 98% ; Pain 2/10; rg5 14:38 Body Mass Index 34.17 (111.13 kg, 180.34 cm) rg5 14:36 Pain Scale: Adult ap3 14:38 Pain Scale: Adult rg5 15:50 Pain Scale: Adult rg5 16:30 Pain Scale: Adult rg5 ED Course: 14:15 Patient arrived in ED. mr 14:18 Abdiel Alaniz MD is Attending Physician. sp3 14:33 Josh Dye, HAO is Primary Nurse. rg5 14:38 Triage completed. ap3 14:39 Arm band placed on right wrist. ap3 14:39 Patient has correct armband on for positive identification. Bed in low position. Call rg5 light in reach. Side rails up X 1. Door closed. 14:39 No provider procedures requiring assistance completed. rg5 15:17 CT Lumbar Spine Wo Con In Process Unspecified. EDMS 16:41 IV discontinued, bleeding controlled, No redness/swelling at site. Pressure dressing rg5 applied. Administered Medications: 15:08 Drug: HYDROmorphone IVP 1 mg IVP once Route: IVP; Site: right wrist; rg5 15:54 Follow up: Response: No adverse reaction; Pain is decreased rg5 15:08 Drug: Ondansetron IVP 4 mg IVP once; over 2 minutes Route: IVP; Site: right wrist; rg5 15:54 Follow up: Response: No adverse reaction; Pain is decreased rg5 15:37 Drug: Labetalol IV 10 mg IV at calculated rate once Route: IV; Rate: calculated rate; rg5 Site: right antecubital; 16:00 Follow up: IV Status: Completed infusion; IV Intake: 10ml rg5 Medication: 14:39 VIS not applicable for this client. rg5 Intake: 16:00 IV: 10ml; Total: 10ml. rg5 Outcome: 15:56 Discharge ordered by . sp3 16:41 Discharged to home ambulatory, rg5 16:41 Condition: stable 16:41 Discharge instructions given to patient, Instructed on discharge instructions, follow up and referral plans. Demonstrated understanding of instructions, follow-up care, medications, Prescriptions given X 2, 16:42 Patient left the ED. rg5 Signatures: Dispatcher [employer] EDOR Kasey Carrillo, Reg Ant Sabrina Ordonez, HAO RN ap3 Abdiel Alaniz MD MD sp3 Josh Dye, RN RN rg5
[2025-02-07 17:12] VITALS: TEMP 98.3
[2025-02-07 17:16] VITALS: BP 145/92; O2SAT 98
== END 2025-02-07 16:42 | disposition home or self-care (01) ==
LOC: ER 14:14
DX: S39.012A Strain of muscle, fascia and tendon of lower back, initial encounter (principal); M54.16 Radiculopathy, lumbar region; I10 Essential (primary) hypertension
CPT/HCPCS: 36415; 72131; 80048; 80076; 84484; 85025; 85610; 93005; 96365; 96375; 99284; J1171; J2405